=== PATIENT | female | born 1975 | race Caucasian/White ===

== ENCOUNTER → 2021-07-18 | Day surgery (SDC) | payer MEDICAID ==
[~2021-07-18] VITALS: Ht 162.6 cm; Wt 56.2 kg
[~2021-07-18] MED LIST: BUPIVACAINE 0.5% MPF INJ 30ML SDV IJ ONE; CHOL200021 PO; DexAMETHasone SOD PHOS 10MG/1ML VIAL INJ ONE; EPINEPHrine HCL 1 MG/1 ML AMP ONE; FERR-7 PO; HYDROmorphone HCL 2 MG/ML VL ONE; MEPERIDINE HCL (25 MG/ML) 1ML VIAL ONE; METOCLOPRAMIDE HCL 5MG/ml INJ 2ml VIAL IV PRN; MIDAZOLAM HCL 2MG/2ML 2ml VIAL (1mg/ml) ONE; MORPHINE SULFATE 4 MG/ML SYR/VIAL IV PRN; ONDANSETRON HCL 4 MG/2 ML VIAL ONE; PROPOFOL 10 MG/ML 20 ML IV ONE; ROCURONIUM 10MG/ML 10ML VIAL IV ONE; SUCCINYLCHOLINE CHLORIDE 20 MG/ML 10ML VIAL IV ONE; TRANEXAMIC ACID 20 ML ONE; ceFAZolin 1GM/50ML 100 ML IV ONE; ceFAZolin 1GM/50ML 50 ML IV ONE; fentaNYL CITRATE 100 MCG/2 ML VL ONE
[2021-07-18] MEDS: HYDROmorphone HCL 2 MG/ML VL IV PRN ×2 (12:50→13:17)
[2021-07-18 14:45] VITALS: BP 100/61
== END | disposition home or self-care (01) ==
LOC: SUR 06:33
PROVIDERS: ATTEND Orthopaedic Surgery Sports Medicine
DX: S73.192A Other sprain of left hip, initial encounter (principal); N18.9 Chronic kidney disease, unspecified; Z90.710 Acquired absence of both cervix and uterus; Z85.43 Personal history of malignant neoplasm of ovary; Z90.49 Acquired absence of other specified parts of digestive tract; Z91.040 Latex allergy status; Z88.2 Allergy status to sulfonamides; Z20.822 Contact with and (suspected) exposure to COVID-19; X58.XXXA Exposure to other specified factors, initial encounter; Y93.89 Activity, other specified; Y92.89 Other specified places as the place of occurrence of the external cause; Y99.8 Other external cause status
CPT/HCPCS: 29916; 73501; 86850; 86900; 86901; C1713; J0171; J0330; J0690; J1100; J1170; J2175; J2250; J2405; J2704; J2765; J3010; J3490; U0003; 76000

== ENCOUNTER 2024-07-15 09:35 | Day surgery (SDC) | payer OTHER ==
[~2024-07-15] VITALS: Ht 162.6 cm; Wt 57.6 kg
[~2024-07-15 09:35] MED LIST changes: -BUPIVACAINE 0.5% MPF INJ 30ML SDV IJ ONE; -CHOL200021 PO; -DexAMETHasone SOD PHOS 10MG/1ML VIAL INJ ONE; -EPINEPHrine HCL 1 MG/1 ML AMP ONE; -FERR-7 PO; -HYDROmorphone HCL 2 MG/ML VL ONE; -MEPERIDINE HCL (25 MG/ML) 1ML VIAL ONE; -METOCLOPRAMIDE HCL 5MG/ml INJ 2ml VIAL IV PRN; -MIDAZOLAM HCL 2MG/2ML 2ml VIAL (1mg/ml) ONE; -MORPHINE SULFATE 4 MG/ML SYR/VIAL IV PRN; +MULT-1018 PO; -ONDANSETRON HCL 4 MG/2 ML VIAL ONE; -PROPOFOL 10 MG/ML 20 ML IV ONE; -ROCURONIUM 10MG/ML 10ML VIAL IV ONE; -SUCCINYLCHOLINE CHLORIDE 20 MG/ML 10ML VIAL IV ONE; -TRANEXAMIC ACID 20 ML ONE; -ceFAZolin 1GM/50ML 100 ML IV ONE; -ceFAZolin 1GM/50ML 50 ML IV ONE; -fentaNYL CITRATE 100 MCG/2 ML VL ONE
[2024-07-15] MEDS: diphenhdrAMINE HCL 50 MG/1 ML VL IV ONE (10:14)
[2024-07-15] MEDS ORDERED: VANCOMYCIN HCL 1000 MG VL ONE (11:47)
[2024-07-15] MEDS ORDERED: fentaNYL CITRATE 100 MCG/2 ML VL ONE (11:48)
[2024-07-15] MEDS ORDERED: VANCOMYCIN 1GM/250ML KIT 250 ML IV ONE (11:49)
[2024-07-15] MEDS ORDERED: MIDAZOLAM HCL 2MG/2ML 2ml VIAL (1mg/ml) ONE (11:49)
[2024-07-15] MEDS ORDERED: LIDOCAINE 2%HCL (LOCAL ANESTH.) INJ 20ML MDV ONE (11:49)
[2024-07-15 13:15] VITALS: BP 119/81; PULSE 67; RESP 14; O2SAT 97
[2024-07-15 13:30] VITALS: BP 120/82; PULSE 100; RESP 13; O2SAT 95
[2024-07-15] MEDS: KETOROLAC TROMETH 30 MG/ML 1ML VIAL IV ONE (13:39)
[2024-07-15 13:45] VITALS: BP 118/83; PULSE 110; RESP 18; O2SAT 94
--- NOTE | 2024-07-15 13:53 | DVH ---
CHEST RADIOGRAPH Indication: S/P PACEMAKER Technique: Single frontal view of the chest was obtained Comparison: None FINDINGS: Lines and Tubes: Dual lead left sided pacemaker. Lungs: No focal consolidation. Pleura: No effusion. No pneumothorax. Cardiomediastinal contours: Unremarkable Bones: No acute osseous abnormality. IMPRESSION: No acute cardiopulmonary disease.
[2024-07-15 14:00] VITALS: BP 111/78; PULSE 107; RESP 16; O2SAT 95
[2024-07-15 14:15] VITALS: BP 111/82; PULSE 60; RESP 16; O2SAT 96
[2024-07-15 14:45] VITALS: BP 106/71; PULSE 116; RESP 20; O2SAT 96
--- NOTE | 2024-07-15 15:07 | DVHOP2 ---
Operative Report - 2 Report Details Date: 07/15/24 Preop Diagnosis: Symptomatic bradycardia Postop Diagnosis: s/p Pacemaker Implantation Surgeon: Chino Garcia MD Anesthesiologist: Conscious sedation Anesthesia: Mac, Local Consent: The patient was informed of the risks and benefits of the procedure. These include but are not limited to complications of anesthesia, postoperative infection, incomplete relief of symptoms, recurrence of symptoms, damage to blood vessels, nerves and tendons, deep venous thrombosis, pulmonary embolism and possible need for repeat surgery in the future. Complications: No complications Estimated Blood Loss: 10 cc Indications for Surgery: Dizziness lightheadedness. Symptomatic bradycardia. Name of Procedure Performed Pacemaker implantation via left pectoral area. Procedure Details Procedure Details: Local anesthesia with 2% lidocaine into the left pectoral region following informed consent obtained the patient was prepped and draped in usual fashion and incision made over the left pectoral we performed dissection planes with the electrocautery and blunt dissection. A pocket was formed under the pectoral fascia. We then inserted a Seldinger needle into the subclavian vein under flu oroscopic guidance placed a nine Vietnamese sheath with AJ curved guidewire and active fixation electrodes into the RV apex. An exchange was made for a six Vietnamese sheath and this was then placed again over the J curved guidewire and an atrial sheath was placed at also add to fixation. Under fluoroscopic guidance these leads were then connected to the myocardial tissue. They were sutured with 0 Ethibond after good capture and sensitivity thresholds were obtained. A antibiotic filled Ray-Madeline gauze was then placed into the pocket and the pocket was flushed with antibiotic solution. We removed the Ray-Madeline gauze and T0 Ethibond was used to suture the leads to the muscle. We then connected the generator and placed it into the pocket in the subpectoral area. The skin was sutured subcutaneously with 3-0 Ethibond and Monocryl was used to close the skin. No complications. The implanted device is an Edora 8, by [employer]. The atrial lead is a soleus S45 serial 3. [id number] serial [id number]. [id number] by [employer]. The ventricular lead is a Solia S 53 serial 3. [id number]. This was also by [employer]. T , TR-T serial [id number] Thresholds: The right atrial lead detected an R-wave of 4.7 at 1.2 volts 0.4 milliseconds when 545 Ohms. The right ventricular lead detected an R-wave of 11.2 at 0.5 volts 0.4 milliseconds 760 Ohms of impedance. The right atrial mean was set at 4 volts 0.4 milliseconds 0.5 mV of sensitivity in bipolar configuration in both sensing and pacing. Right ventricular lead was set at a pulse amplitude of 4 volts at 0.4 milliseconds 2 mV of sensitivity bipolar configuration both sensing and pacing. The pacing mode at DDD at a rate of 60/130 with an AV delay of 205/160 milliseconds a PV AERP at 2:50 a.m. milliseconds RA sensitivity auto at 0.5 mV RV sensitivity auto at 2 mV RA output at 4 volts at 0.40 milliseconds RV output for volts at 0.40 milliseconds Patient tolerated procedure well no complications. A chest x-ray was ordered as well as an EKG for evaluation of placement. Condition Good Disposition Home Date of Service: Jul 15, 2024 Billing Provider: CHINO GARCIA Sr., MD Cardiology Common Codes: 94111-[id number] INP/OBS CARE (High) Card. Pacer Implants/Gen [id number]/REPLACE DUAL LEAD PACER CHINO GARCIA Sr., MD Jul 15, 2024 15:07
== END 2024-07-15 15:20 | disposition home or self-care (01) ==
LOC: CATH 09:35
PROVIDERS: ATTEND Internal Medicine
DX: I44.30 Unspecified atrioventricular block (principal); R00.1 Bradycardia, unspecified; R94.39 Abnormal result of other cardiovascular function study; R42 Dizziness and giddiness; I34.1 Nonrheumatic mitral (valve) prolapse; G47.33 Obstructive sleep apnea (adult) (pediatric)
CPT/HCPCS: 33208; 71045; C1785; J1200; J1885; J2250; J3010; J3370; J7040; 99152

== ENCOUNTER 2024-07-18 13:03 | Inpatient (IN) | payer MEDICAID, OTHER ==
[~2024-07-18] VITALS: Ht 162.6 cm; Wt 118.3 kg
--- NOTE | 2024-07-18 14:33 | ED.PDOC ---
HPI Comments HPI: Poor Historian. 48-year-old female presents to the emergency department for evaluation of chest pain in the last two days that is progressively getting worse. Patient thinks she is developing an allergic reaction to adhesive tape. She is status post pacemaker placement this past Saturday which she says they applied Steri-Strips and adhesives to the area of the pacemaker incision. She removed the dressing yesterday. There is noted Steri-Strips present today over the pacemaker incision. There is associated redness and rash that she describes across her chest. She feels some chest heaviness as well. The recently placed her on a pacemaker she says was for some type of ventricular block. VITALS: Temp: 99.2 F RR: 18 02 sat : 100 % on room air HR: 79 BP: 137/93 PMH: type 2 heart block, autoimmune disorder PSH: pacemaker, calf surgery, hip surgery, hysterectomy, shoulder surgery, hernia repair, , Social history: denies tobacco use, endorses ETOH use, denies drug use Medications: denies Allergies: adhesive tape, iodine REVIEW OF SYSTEMS: CONSTITUTIONAL: Denies acute: fever, diaphoresis, chills, generalized weakness. HEAD: Denies acute: headache, photophobia Eyes: Denies acute: Double vision, vision loss, eye pain, eye discharge. EARS: Denies acute: tinnitus, hearing loss, ear discharge, ear pain, THROAT: Denies acute: sore throat, swelling, difficulty swallowing , pain with swallowing, change in voice. NECK: Denies acute: neck pain, neck swelling, stiff neck. HEART: Denies acute : palpitations, LUNGS: Denies acute: SOB, wheezing, cough, hemoptysis ABDOMEN: Denies acute: abdominal pain, Nausea, Vomiting, diarrhea, melena , hematemesis, hematochezia SKIN: Denies acute: , , lesions, itchiness. EXTREMITIES: Denies acute: calf pain, numbness, tingling, weakness, denies pain in extremity. Denies acute: Low back pain. Neuro: Denies acute: focal neurological deficit, motor or sensory focal neurological deficit, tremors, seizure like activity, confusion, dizziness, change in mental status, loss of bowel or bladder function, cauda equina like symptoms. : Denies acute: dysuria, hematuria, flank pain, increase in urinary frequency. PSYCH: Denies acute: hallucination, suicidal ideation, homicidal ideation. FEMALE: Denies acute: abnormal vaginal bleeding, foul odor, unusual discharge. PHYSICAL EXAM: General: Moderate acute distress, awake and alert. Head: normocephalic, atraumatic. Neck: supple, trachea is midline, no swelling. Throat: Normal phonation. No obstruction, no swelling, no erythema, no deviation, no drooling, no tripoding Eyes:, no erythema, no purulent discharge, no proptosis, no icterus. Heart: regular rate, regular rhythm, no significant murmur appreciated. Touching of the rash on her chest and redness around her pacemaker area produces discomfort. This could be allergic reaction versus cellulitis developing. No apparent purulent discharge from the surgical site. Lungs: no apparent respiratory distress, Able to speak in full sentences. No wheezing, no rhonchi, no crackles. No stridors Clear to auscultation bilaterally. Abdomen: non tender to palpation, non distended, soft, no guarding, no rebound, + bowel sounds. Neuro: Awake, Alert, oriented to name, self, situation, follows commands GCS=15. Speech is normal. Skin: no petechia, no purpura, no cyanosis, non-pale, not jaundice. Lower extremities: --no - Pitting edema no deformity, no focal swelling, no calf TTP. Makes eye contact. moves all four extremities. Face: no apparent facial droop. Ambulating in the ED independently. Time Seen by MD: 14:24 Primary Care Provider: [facility] Reviewed Notes: Nurses Notes, Allergies Allergies: Coded Allergies: Povidone Iodine (Verified Allergy, Unknown, RASH, 07/14/24) Uncoded Allergies: ADHESIVE TAPE (Allergy, Unknown, 07/14/24) Home Meds Reported Medications Multiple Vitamin (Multivitamins) Tab, 1 TAB PO DAILY, #90 TAB 3 Refills 07/14/24 Information Source: Patient Mode of Arrival: Ambulatory Past Medical History Surgical History: Appendectomy, Cholecystectomy, Hernia Repair, Hysterectomy Family History Family History: Reviewed,noncontributory to illness Social History Smoker: Non-Smoker Alcohol: Occasionally Drugs: Denies Drug Use Lives In: Home Was a procedure done? Was a procedure done?: No X-Ray, Labs, Meds, VS Vital Signs Date Time Temp Pulse Resp B/P (MAP) Pulse Ox O2 Delivery O2 Flow Rate FiO2 07/18/24 20:00 80 18 99 Room Air* 0 21 07/18/24 20:00 80 18 100/57 (71) 99 07/18/24 20:00 75 07/18/24 19:00 77 16 114/70 (85) 97 07/18/24 17:30 69 13 97 Room Air* 0 21 07/18/24 17:30 98.3 69 14 117/69 (85) 97 98.3 07/18/24 17:30 117/69 07/18/24 16:34 73 18 99 Room Air 07/18/24 16:34 73 18 128/54 (78) 99 07/18/24 14:52 99.2 79 18 137/93 (108) 100 07/18/24 14:52 18 100 Room Air* 0 21 Lab Test 07/18/24 18:13 07/18/24 16:12 07/18/24 15:10 07/18/24 14:35 Range/Units Troponin I High Sensitivity 4 4 4 </=34 ng/L White Blood Count 6.3 4.4-10.8 10^3/uL Red Blood Count 4.49 4.0-5.20 10^6/uL Hemoglobin 14.5 12.2-16.2 g/dL Hematocrit 42.6 36.0-46.0 % Mean Corpuscular Volume 94.9 80.0-100.0 fL Mean Corpuscular Hemoglobin 32.3 H 28.0-32.0 pg Mean Corpuscular Hemoglobin Concent 34.1 32.0-36.0 g/dL Red Cell Distribution Width 12.5 11.8-14.3 % Platelet Count 265 140-450 10^3/uL Mean Platelet Volume 9.9 6.9-10.8 fL Neutrophils (%) (Auto) 61.0 37.0-80.0 % Lymphocytes (%) (Auto) 25.2 10.0-50.0 % Monocytes (%) (Auto) 9.3 0.0-12.0 % Eosinophils (%) (Auto) 4.0 0.0-7.0 % Basophils (%) (Auto) 0.5 0.0-2.0 % Neutrophils # (Auto) 3.8 1.6-8.6 10 ^3/uL Lymphocytes # (Auto) 1.6 0.4-5.4 10 ^3/uL Monocytes # (Auto) 0.6 0-1.3 10 ^3/uL Eosinophils # (Auto) 0.3 0-0.8 10 ^3/uL Basophils # (Auto) 0 0-0.2 10 ^3/uL Nucleated Red Blood Cells 0.2 % Sodium Level 140 136-145 mmol/L Potassium Level 4.5 3.5-5.1 mmol/L Chloride Level 105 98-107 mmol/L Carbon Dioxide Level 28 20-31 mmol/L Anion Gap 7 5-15 Blood Urea Nitrogen 9 9-23 mg/dL Creatinine 1.05 H 0.550-1.02 mg/dL Glomerular Filtration Rate Calc 66 >90 mL/min BUN/Creatinine Ratio 8.6 L 10.0-20.0 Serum Glucose 95 74-106 mg/dL Lactic Acid Level 0.8 0.4-2.0 mmol/L Calcium Level 10.3 8.7-10.4 mg/dL Magnesium Level 1.7 1.6-2.6 mg/dL Total Bilirubin 0.6 0.2-1.0 mg/dL Aspartate Amino Transferase (AST) 35 13-40 U/L Alanine Aminotransferase (ALT) 23 7-40 U/L Alkaline Phosphatase 100 46-116 U/L B-Type Natriuretic Peptide 20.22 0-100 pg/mL Total Protein 7.4 5.7-8.2 g/dL Albumin 4.6 3.2-4.8 g/dL Urine Color Light-yellow Yellow Urine Clarity Clear Clear Urine pH 7.5 5.0-9.0 Urine Specific [place] 1.020 1.001-1.035 Urine Protein Negative Negative Urine Ketones Negative Negative Urine Blood Negative Negative /uL Urine Nitrite Negative Negative Urine Bilirubin Negative Negative Urine Urobilinogen Normal Negative mg/dL Urine Leukocyte Esterase Negative Negative /uL Urine RBC 1 0 - 4 /hpf Urine WBC 1 0 - 5 /hpf Urine Squamous Epithelial Cells Few <5 /hpf Urine Bacteria None seen None Seen /hpf Urine Mucus Few None Seen Urine Glucose Normal Normal mg/dL Current Medications Medications (Trade) Dose Ordered Sig/Leticia Route Start Time Stop Time Status Last Admin Aspirin 325 mg ONCE ONCE PO 07/18/24 14:45 07/18/24 14:46 DC 07/18/24 16:21 Sodium Chloride 500 ml @ 500 mls/hr Q1H ONCE IV 07/18/24 14:45 07/18/24 15:44 DC 07/18/24 16:25 Famotidine (Pepcid Injection) 20 mg ONCE ONCE IV 07/18/24 14:45 07/18/24 14:46 DC 07/18/24 16:22 Dexamethasone Sodium Phosphate (Decadron Injection) 10 mg ONCE ONCE IM 07/18/24 14:45 07/18/24 14:46 DC 07/18/24 16:25 Diphenhydramine HCl (Benadryl Injection) 25 mg ONCE ONCE IV 07/18/24 14:45 07/18/24 14:46 DC 07/18/24 16:24 Piperacillin Sod/ Tazobactam Sod 100 ml @ 100 mls/hr ONCE ONCE IV 07/18/24 14:45 07/18/24 15:44 DC 07/18/24 16:25 Fentanyl Citrate 100 mcg ONCE ONCE IV 07/18/24 17:00 07/18/24 17:01 DC 07/18/24 17:30 Fentanyl Citrate 100 mcg ONCE ONCE IV 07/18/24 19:45 07/18/24 19:46 DC 07/18/24 20:54 [place] [address] Ph: [phone] DIAGNOSTIC IMAGING Diagnostic Imaging Report : [id number] Signed PATIENT: MACRINA ZAMUDIO ACCT: [id number] UNIT: [id number] : 1975 LOC: ER ROOM / BED: / AGE / SEX: 48 / F ADM STATUS: REG ER SERVICE 1432 ORDERING PHYSICIAN: PAT CANDELARIA DO PROCEDURE(s): CXRP - CHEST PORTABLE REASON: cp ORDER NUMBER(s): [id number], ACCESSION NUMBER(s): [id number] CLINICAL INFORMATION: 48 years old, Female; chest pain. TECHNIQUE: Single AP portable chest radiograph was obtained. COMPARISON: XY CHEST PORTABLE on DOS: 07/15/24 FINDINGS: Lungs: Clear. Cardiac: Heart size is within normal limits. Pacemaker leads extend to the right atrium and right ventricle. Pulmonary vasculature: Unremarkable. Mediastinum/gayathri: Unremarkable. Bones: No acute osseous abnormality identified. Other: No other significant findings. IMPRESSION: No evidence of acute disease in the chest. ATED BY: TJ CARTAGENA DO DICTATED DATE/TIME: 07/18/24 1503 SIGNED BY: TJ CARTAGENA DO SIGNED DATE/TIME: 07/18/24 150 CC: [place] [address] Ph: [phone] DIAGNOSTIC IMAGING Diagnostic Imaging Report : [id number] Signed PATIENT: MACRINA ZAMUDIO ACCT: [id number] UNIT: [id number] : 1975 LOC: ER ROOM / BED: / AGE / SEX: 48 / F ADM STATUS: REG ER SERVICE 1432 ORDERING PHYSICIAN: PAT CANDELARIA DO PROCEDURE(s): CX2CT - CHEST WITHOUT CONTRAST REASON: cp, s/p pacemaker ORDER NUMBER(s): [id number], ACCESSION NUMBER(s): [id number] Procedure: CT CHEST WITHOUT CONTRAST Reason for study/Clinical History: cp, s/p pacemaker Comparison Study: None available at time of dictation. Exam Date: 07/18/2024 02:42 PM TECHNIQUE: Multidetector CT of the chest was performed from the lung apices to the upper abdomen without the use of intravenous contract. Axial, coronal and sagittal multiplanar reformats were performed. Radiation Dose Information: CT Dose: CTDI volume is 5.5 mGy. Dose-length product is 199.67 mGy*cm The dose indicators for CT are the volume Computed Tomography (CT) Dose Index (CTDIvol) and the Dose Length Product (DLP), and are measured in units of mGy and mGy-cm, respectively. These indicators are not patient dose, but values generated from the CT scanner acquisition factors. The report includes radiation exposure data for exposures received during this examination. FINDINGS: Lower neck: Normal thyroid. Lungs: No focal consolidation, pleural effusion or pneumothorax. Heart/Vascular Structures: Normal heart size. No pericardial effusion. Dual- chamber pacemaker in place. Ventricular lead in the right ventricle. Exact positioning of the atrial lead is uncertain. There are no findings to suggest pericardial effusion. Lymph Nodes: No adenopathy Pleura: No pleural effusion or significant pneumothorax. Musculoskeletal: No acute osseous abnormality. Soft tissues: Pulse generator over the left chest with dual-chamber pacemaker in place. Upper abdomen: Limited portions of the upper abdomen are unremarkable. IMPRESSION: 1. Dual-chamber pacemaker in place. 2. No pneumothorax. Radiation optimization: All CT scans at this facility use at least one of these dose optimization techniques: automated exposure control mA and/or kV adjustment per patient size (includes targeted exams where dose is matched to clinical indication) or iterative reconstruction. ATED BY: GERMAINE LANZA Jr., DO DICTATED DATE/TIME: 07/18/241519 SIGNED BY: GERMAINE LANZA Jr., SIGNED DATE/TIME: 07/18/241519 CC: Time of 1ST Reevaluation: 19:53 (The case was discussed with the admitting team (HPI, physical exam, labs and diagnostic tests that were available at the time of disposition, ED course, treatment plan) on the phone. They agreed to admit the patient to their service and assume care of this patient from this point forward. Nurse practitioner REX. ) Reevaluation 1ST: Unchanged Patient Education/Counseling: Diagnosis, Treatment Family Education/Counseling: No Family Present Comments MDM: Patient presented with the above HPI.----- chest pain -workup was initiated. patient was found with the above mentioned diagnosis. the following medications were ordered: fentanyl, Zosyn, Benadryl, steroid injection, famotidine, aspirin, the following tests were ordered: ct chest without contrast, EKG x3, troponin x3, UA, chest x-ray, magnesium, lactic acid, BNP,CBC, CMP, Patient ED course and VS have been stabilized. Patient has been reassessed in the ED and remained in a stable condition. Patient has been observed in the ED adequate length of time to insure improvement/stability. Escalation of care considered: Consideration of escalation to observation or admission. patient was ADMITTED to the medicine team for further evaluation and treatment of their presentation. All the reports of any imaging studies that were ordered by myself were reviewed by myself. Departure 1 Departure Time of Disposition: 16:26 Impression: Primary Impression: Cellulitis of chest wall Additional Impressions: Allergic reaction Chest pain Disposition: ADMITTED INPATIENT Admit to: Tele Condition: Guarded Discharged With: Self Heart Score Heart Score: Heart Score Response (Comments) Value History Slightly Suspicious 0 Age 45-64 1 Risk Factors No known risk factors 0 Troponin Normal limit 0 Total 1 I personally scribed for PAT CANDELARIA DO ([email or web address]) on 07/18/24 at 14:33. Electronically submitted by Elodia Desai ([facility] [employer]). I personally scribed for PAT CANDELARIA DO ([email or web address]) on 07/18/24 at 18:36. Electronically submitted by Elodia Desai ([employer]). I personally scribed for PAT CANDELARIA DO ([email or web address]) on 07/18/24 at 21:14. Electronically submitted by Elodia Desai ([facility]). PAT CANDELARIA DO Jul 18, 2024 14:33
--- NOTE | 2024-07-18 15:06 | DVH ---
CLINICAL INFORMATION: 48 years old, Female; chest pain. TECHNIQUE: Single AP portable chest radiograph was obtained. COMPARISON: XY CHEST PORTABLE on DOS: 07/15/24 FINDINGS: Lungs: Clear. Cardiac: Heart size is within normal limits. Pacemaker leads extend to the right atrium and right kell tricle. Pulmonary vasculature: Unremarkable. Mediastinum/gayathri: Unremarkable. Bones: No acute osseous abnormality identified. Other: No other significant findings. IMPRESSION: No evidence of acute disease in the chest.
[2024-07-18 15:13] LABS: Urine Bacteria None Seen /hpf (None Seen)
--- NOTE | 2024-07-18 15:23 | DVH ---
Procedure: CT CHEST WITHOUT CONTRAST Reason for study/Clinical History: cp, s/p pacemaker Comparison Study: None available at time of dictation. Exam Date: 07/18/2024 02:42 PM TECHNIQUE: Multidetector CT of the chest was performed from the lung apices to the upper abdomen with out the use of intravenous contract. Axial, coronal and sagittal multiplanar reformats were performed . Radiation Dose Information: CT Dose: CTDI volume is 5.5 mGy. Dose-length product is 199.67 mGy*cm The dose indicators for CT are the volume Computed Tomography (CT) Dose Index (CTDIvol) and the Dose Length Product (DLP), and are measured in units of mGy and mGy-cm, respectively. These indicators are not patient dose, but values generated from the CT scanner acquisition factors. The report includes radiation exposure data for exposures received during this examination. FINDINGS: Lower neck: Normal thyroid. Lungs: No focal consolidation, pleural effusion or pneumothorax. Heart/Vascular Structures: Normal heart size. No pericardial effusion. Dual-chamber pacemaker in plac e. Ventricular lead in the right ventricle. Exact positioning of the atrial lead is uncertain. There are no findings to suggest pericardial effusion. Lymph Nodes: No adenopathy Pleura: No pleural effusion or significant pneumothorax. Musculoskeletal: No acute osseous abnormality. Soft tissues: Pulse generator over the left chest with dual-chamber pacemaker in place. Upper abdomen: Limited portions of the upper abdomen are unremarkable. IMPRESSION: 1. Dual-chamber pacemaker in place. 2. No pneumothorax. Radiation optimization: All CT scans at this facility use at least one of these dose optimization josi hniques: automated exposure control mA and/or kV adjustment per patient size (includes targeted exam s where dose is matched to clinical indication) or iterative reconstruction.
[2024-07-18 15:37] LABS: Urine Blood Negative /uL (Negative); Urine Clarity Clear (Clear); Urine Color Light-Yellow (Yellow); Urine Mucus FEW (None Seen); Urine Protein, UAD Negative (Negative); Urine Urobilinogen Normal (Negative); Urine WBC 1 /hpf (0 - 5); Urine pH 7.5 (5.0-9.0)
[2024-07-18 15:40] LABS: Basophils # (auto) 0 10 ^3/uL (0-0.2); Basophils % (auto) 0.5 % (0.0-2.0); Eosinophils # (auto) 0.3 10 ^3/uL (0-0.8); Hematocrit 42.6 % (36.0-46.0); Hemoglobin 14.5 g/dL (12.2-16.2); Lymphocytes # (auto) 1.6 10 ^3/uL (0.4-5.4); Lymphocytes % (auto) 25.2 % (10.0-50.0); Mean Corpuscular Hemoglobin 32.3 pg (28.0-32.0); Mean Corpuscular Hgb Conc. 34.1 g/dL (32.0-36.0); Mean Corpuscular Volume 94.9 fL (80.0-100.0); Monocytes # (auto) 0.6 10 ^3/uL (0-1.3); Monocytes % (auto) 9.3 % (0.0-12.0); Neutrophils # (auto) 3.8 10 ^3/uL (1.6-8.6); Nucleated Red Blood Cells % 0.2 %; Platelet Count (auto) 265 10^3/uL (140-450); Red Blood Cells 4.49 10^6/uL (4.0-5.20); Red Cell Distribution Width 12.5 % (11.8-14.3); White Blood Cell 6.3 10^3/uL (4.4-10.8)
[2024-07-18 15:47] LABS: Alanine Aminotransferase 23 U/L (7-40); Albumin 4.6 g/dL (3.2-4.8); Alkaline Phosphatase 100 U/L (46-116); Anion Gap 7 (5-15); Aspartate Aminotransferase 35 U/L (13-40); BUN/Creatinine Ratio 8.6 (10.0-20.0); Bilirubin, Total 0.6 mg/dL (0.2-1.0); Blood Urea Nitrogen 9 mg/dL (9-23); Calcium 10.3 mg/dL (8.7-10.4); Carbon Dioxide 28 mmol/L (20-31); Chloride 105 mmol/L (98-107); Glucose 95 mg/dL (74-106); Magnesium 1.7 mg/dL (1.6-2.6); Potassium 4.5 mmol/L (3.5-5.1); Sodium 140 mmol/L (136-145); Total Protein 7.4 g/dL (5.7-8.2)
[2024-07-18] MEDS: ASPirin 325 MG TAB PO ONE (16:21)
[2024-07-18] MEDS: FAMOTIDINE (10MG/ML) 2ML VL IV ONE (16:22)
[2024-07-18] MEDS: diphenhdrAMINE HCL 50 MG/1 ML VL IV ONE (16:24)
[2024-07-18] MEDS: SODIUM CHLORIDE 0.9% 500 ML IV ONE (16:25)
[2024-07-18] MEDS: DexAMETHasone SOD PHOS 10MG/1ML VIAL INJ IM ONE (16:25)
[2024-07-18] MEDS: PIPERACILLIN-TAZOB 3.375GM 100 ML IV ONE (16:25)
[2024-07-18 17:30] VITALS: PULSE 69; RESP 13; O2SAT 97
[2024-07-18] MEDS: fentaNYL CITRATE 100 MCG/2 ML VL IV ONE ×2 (17:30→20:54)
[2024-07-18] MEDS ORDERED: HYDROcodone-ACET 5/325MG TAB PO PRN ×2 (17:45→20:30)
[2024-07-18] MEDS ORDERED: DOCUSATE SOD 100 MG CAP PO PRN ×2 (17:45→20:30)
[2024-07-18] MEDS ORDERED: ONDANSETRON HCL 4 MG/2 ML VIAL IV PRN (17:45)
[2024-07-18] MEDS ORDERED: ACETAMINOPHEN 325 MG TAB PO PRN ×2 (17:45→20:30)
[2024-07-18] MEDS ORDERED: MORPHINE SULFATE INJ 2 MG/ml SYRG IV PRN ×3 (17:45→20:30)
[2024-07-18] MEDS ORDERED: NITROGLYCERIN 0.4 MG SL TAB SL PRN ×2 (17:45→20:30)
--- NOTE | 2024-07-18 17:55 | DVHHP2 ---
History of Present Illness Past Surgical History PM placement Oopherectomy Family History: Cancer, CVA Smoke: No ALCOHOL: occassional Lives: with Family Domestic Violence: Neg Review of Systems Constitutional: No: Fever, Chills, Sweats, Weakness, Malaise, Other Eyes: No: Pain, Vision change, Conjunctivae inflammation, Eyelid inflammation, Other, Redness ENT: No: Ear pain, Ear discharge, Nose pain, Nose discharge, Nose congestion, Mouth pain, Mouth swelling, Throat pain, Throat swelling, Other Respiratory: Shortness of breath; No: Cough, Dry, SOB with excertion, Wheezing, Hemoptysis, Pleuritic Pain, Sputum, Wheezing, Other Cardiovascular: Chest Pain, Palpitations; No: Orthopnea, Paroxysmal Noc. Dyspnea, Edema, Lt Headedness, Other Gastrointestinal: No: Nausea, Vomiting, Abdominal Pain, Diarrhea, Constipation, Melena, Hematochezia, Other Genitourinary: No Dysuria, No Frequency, No Incontinence, No Hematuria, No Retention, No Other Musculoskeletal: No: other, neck pain, shoulder pain, arm pain, back pain, hand pain, leg pain, foot pain Skin: Rash, Other (pus ); No: Lesions, Jaundice, Bruising Neurological: No: Weakness, Numbness, Incoordination, Change in speech, Confusion, Seizures, Other Allergies: Coded Allergies: Povidone Iodine (Verified Allergy, Unknown, RASH, 07/14/24) Uncoded Allergies: ADHESIVE TAPE (Allergy, Unknown, 07/14/24) Exam Vital Signs Vital Signs Date Time Temp Pulse Resp B/P (MAP) Pulse Ox O2 Delivery O2 Flow Rate FiO2 07/18/24 17:30 117/69 07/18/24 16:34 73 18 99 Room Air 07/18/24 14:52 99.2 07/18/24 14:52 0 21 General Appearance: Alert, Oriented X3, Cooperative, mild distress HEENT: Atraumatic, PERRLA, EOMI, Mucous membr. moist/pink Respiratory: Clear to auscultation, Normal air movement Cardiovascular: Regular rate, Normal S1, Normal S2, No murmurs Abdominal: Normal bowel sounds, Soft, No tenderness, No hepatospenomegaly, No m asses Extremities: No clubbing, No cyanosis, Normal pulses Neuro: Normal gait, Normal speech, Strength at 5/5 X4 ext, Normal tone, Sensation intact Psych/Mental Status: Mental status NL, Mood NL Assessment/Plan My Orders Orders - RACHEL SHAH Procedure Category Date Status Time Dexamethasone PHA 07/19/24 Transmitted Injection (Decadron 10:00 Diphenhdramine PHA 07/18/24 Transmitted Injection (Benadryl 22:00 Zosyn Extended PHA 07/18/24 Transmitted Infusion 22:00 Famotidine Injection PHA 07/19/24 Transmitted (Pepcid Injection) 10:00 Admit ADMIT 07/18/24 Transmitted 17:35 Allergies XIOMARA 07/18/24 Transmitted 17:35 Code Status CODE 07/18/24 Transmitted 17:35 Hydrocodone-Acet PHA 07/18/24 Transmitted 5/325mg Tab ([place] 17:45 Ondansetron Hcl PHA 07/18/24 Transmitted (Zofran) 17:45 Docusate Sodium PHA 07/18/24 Transmitted Capsule (Colace 17:45 Cardiac DIET 07/18/24 Transmitted Diet-2gna,Lofat,Lochol Dinner Acetaminophen Tablet [facility] 07/18/24 Transmitted (Tylenol Tablet) 17:45 Morphine Sulfate PHA 07/18/24 Transmitted Injection 17:45 Nitroglycerin PHA 07/18/24 Transmitted Sublingual (Ntrostat 17:45 Morphine Sulfate PHA 07/18/24 Transmitted Injection 17:45 Notify Of Changes [facility] 07/18/24 Transmitted From Base 17:35 Fresh Food Manager For [facility] 07/18/24 Transmitted 24 Hours 17:35 Emergency Dysrhythmia [facility] 07/18/24 Transmitted Protocol 17:35 Rhythm Strips Once [facility] 07/18/24 Transmitted Every Shift 17:35 Oxygen By Nasal RT 07/18/24 Transmitted Cannula 17:35 * Cardiology Consult CONS 07/18/24 Transmitted 17:35 RACHEL SHAH Jul 18, 2024 17:55
[2024-07-18 20:00] VITALS: PULSE 80; RESP 18; O2SAT 99
[2024-07-18] MEDS: fentaNYL CITRATE 100 MCG/2 ML VL ONE (21:04)
[2024-07-18] MEDS ORDERED: PIPERACILLIN-TAZOB 3.375GM 100 ML IV SCH (22:00)
[2024-07-18] MEDS ORDERED: diphenhdrAMINE HCL 50 MG/1 ML VL IV SCH (22:00)
[2024-07-18] MEDS: FAMOTIDINE (10MG/ML) 2ML VL IV SCH (22:24)
[2024-07-18] MEDS: PIPERACILLIN-TAZOB 3.375GM 100 ML IV SCH (22:24)
[2024-07-18 23:20] VITALS: BP 116/63; PULSE 63; RESP 18; TEMP 97.7; O2SAT 96
[2024-07-18] MEDS: MORPHINE SULFATE INJ 2 MG/ml SYRG IV PRN (23:53)
[2024-07-19] VITALS (9 sets, daily range): BP systolic 101–138; BP diastolic 60–71; PULSE 60–86; RESP 16–19; TEMP 97.6–98.4; O2SAT 93–100
--- NOTE | 2024-07-19 01:02 | DVHHP2 ---
REX LEGER AEROPHYSICIST 07/19/24 0101: History of Present Illness Reason for Visit: chest wall cellulitis History of Present Illness 48-year-old female with past medical history of symptomatic bradycardia presents with complaints of redness And discharge to the Pacemaker implantation site. Pacemaker was recently placed on July 15, [address] Garcia. Patient felt she was having an allergic reaction to adhesive tape. However was treated for allerg ic reaction in the emergency department with no relief. Patient is also endorsing chest pressure Radiating to her neck. Denied fevers, chills, shortness of breath,Dizziness, palpitations, nausea, vomiting. Cardiovascular: Other (PM) Past Surgical History: Appendectomy, Cholecystectomy, Hysterectomy Family History: Cancer, CVA Smoke: No ALCOHOL: occassional Drugs: None Lives: with Family Domestic Violence: Neg Review of Systems Constitutional: No: Fever, Chills, Sweats, Weakness, Malaise, Other Eyes: No: Pain, Vision change, Conjunctivae inflammation, Eyelid inflammation, Other, Redness ENT: No: Ear pain, Ear discharge, Nose pain, Nose discharge, Nose congestion, Mouth pain, Mouth swelling, Throat pain, Throat swelling, Other Respiratory: No: Cough, Dry, Shortness of breath, SOB with excertion, Wheezing, Hemoptysis, Pleuritic Pain, Sputum, Wheezing, Other Cardiovascular: Chest Pain; No: Palpitations, Orthopnea, Paroxysmal Noc. Dyspnea, Edema, Lt Headedness, Other Gastrointestinal: No: Nausea, Vomiting, Abdominal Pain, Diarrhea, Constipation, Melena, Hematochezia, Other Genitourinary: No Dysuria, No Frequency, No Incontinence, No Hematuria, No Retention, No Other Musculoskeletal: No: other, neck pain, shoulder pain, arm pain, back pain, hand pain, leg pain, foot pain Skin: Rash; No: Lesions, Jaundice, Bruising, Other Neurological: No: Weakness, Numbness, Incoordination, Change in speech, Confusion, Seizures, Other Allergies: Coded Allergies: Povidone Iodine (Verified Allergy, Unknown, RASH, 07/14/24) Uncoded Allergies: ADHESIVE TAPE (Allergy, Severe, anaphylaxis, 07/19/24) Medications Current Medications Medications Dose Ordered Sig/Leticia Route Start Time Stop Time Status Last Admin Dose Admin Docusate Sodium 100 mg BIDPRN PRN PO 07/18/24 20:30 Acetaminophen 650 mg Q6HP PRN PO 07/18/24 20:30 Acetaminophen/ Hydrocodone Bitart 1 tab Q6HPRN PRN PO 07/18/24 20:30 Morphine Sulfate 2 mg Q4HPRN PRN IV 07/18/24 20:30 07/18/24 23:53 2 MG Nitroglycerin 0.4 mg Q5MINP PRN SL 07/18/24 20:30 Morphine Sulfate 2 mg Q30M PRN IV 07/18/24 20:30 Famotidine 20 mg Q12HR IV 07/18/24 22:00 07/18/24 22:24 20 MG Diphenhydramine HCl 25 mg Q6HP PRN IV 07/18/24 20:30 Piperacillin Sod/ Tazobactam Sod 100 ml @ 25 mls/hr Q8HR IV 07/18/24 22:00 07/18/24 22:24 25 MLS/HR Exam Vital Signs Vital Signs Date Time Temp Pulse Resp B/P (MAP) Pulse Ox O2 Delivery O2 Flow Rate FiO2 07/18/24 23:53 63 18 116/63 07/18/24 23:05 99 07/18/24 20:00 Room Air* 0 21 07/18/24 17:30 98.3 98.3 General Appearance: Alert, Oriented X3, Cooperative, mild distress HEENT: Atraumatic, PERRLA, EOMI Respiratory: Clear to auscultation, Normal air movement Cardiovascular: Regular rate, Normal S1, Normal S2 Abdominal: Normal bowel sounds, Soft, No tenderness Extremities: No clubbing, No cyanosis, No edema Skin: No rashes (Erythematous Changes surrounding pacemaker implantation site. ), No significant lesion Psych/Mental Status: Mental status NL, Mood NL Labs/Xrays Labs Test 07/18/24 18:13 07/18/24 15:10 07/18/24 14:35 Range/Units Troponin I High Sensitivity 4 </=34 ng/L White Blood Count 6.3 4.4-10.8 10^3/uL Red Blood Count 4.49 4.0-5.20 10^6/uL Hemoglobin 14.5 12.2-16.2 g/dL Hematocrit 42.6 36.0-46.0 % Mean Corpuscular Volume 94.9 80.0-100.0 fL Mean Corpuscular Hemoglobin 32.3 H 28.0-32.0 pg Mean Corpuscular Hemoglobin Concent 34.1 32.0-36.0 g/dL Red Cell Distribution Width 12.5 11.8-14.3 % Platelet Count 265 140-450 10^3/uL Mean Platelet Volume 9.9 6.9-10.8 fL Neutrophils (%) (Auto) 61.0 37.0-80.0 % Lymphocytes (%) (Auto) 25.2 10.0-50.0 % Monocytes (%) (Auto) 9.3 0.0-12.0 % Eosinophils (%) (Auto) 4.0 0.0-7.0 % Basophils (%) (Auto) 0.5 0.0-2.0 % Neutrophils # (Auto) 3.8 1.6-8.6 10 ^3/uL Lymphocytes # (Auto) 1.6 0.4-5.4 10 ^3/uL Monocytes # (Auto) 0.6 0-1.3 10 ^3/uL Eosinophils # (Auto) 0.3 0-0.8 10 ^3/uL Basophils # (Auto) 0 0-0.2 10 ^3/uL Nucleated Red Blood Cells 0.2 % Sodium Level 140 136-145 mmol/L Potassium Level 4.5 3.5-5.1 mmol/L Chloride Level 105 98-107 mmol/L Carbon Dioxide Level 28 20-31 mmol/L Anion Gap 7 5-15 Blood Urea Nitrogen 9 9-23 mg/dL Creatinine 1.05 H 0.550-1.02 mg/dL Glomerular Filtration Rate Calc 66 >90 mL/min BUN/Creatinine Ratio 8.6 L 10.0-20.0 Serum Glucose 95 74-106 mg/dL Lactic Acid Level 0.8 0.4-2.0 mmol/L Calcium Level 10.3 8.7-10.4 mg/dL Magnesium Level 1.7 1.6-2.6 mg/dL Total Bilirubin 0.6 0.2-1.0 mg/dL Aspartate Amino Transferase (AST) 35 13-40 U/L Alanine Aminotransferase (ALT) 23 7-40 U/L Alkaline Phosphatase 100 46-116 U/L B-Type Natriuretic Peptide 20.22 0-100 pg/mL Total Protein 7.4 5.7-8.2 g/dL Albumin 4.6 3.2-4.8 g/dL Urine Color Light-yellow Yellow Urine Clarity Clear Clear Urine pH 7.5 5.0-9.0 Urine Specific [place] 1.020 1.001-1.035 Urine Protein Negative Negative Urine Ketones Negative Negative Urine Blood Negative Negative /uL Urine Nitrite Negative Negative Urine Bilirubin Negative Negative Urine Urobilinogen Normal Negative mg/dL Urine Leukocyte Esterase Negative Negative /uL Urine RBC 1 0 - 4 /hpf Urine WBC 1 0 - 5 /hpf Urine Squamous Epithelial Cells Few <5 /hpf Urine Bacteria None seen None Seen /hpf Urine Mucus Few None Seen Urine Glucose Normal Normal mg/dL Assessment/Plan Assessment/Plan Chest wall cellulitis vs severe contact dermatitis Chest pressure Pacemaker placed 07/15/24 Plan Admit telemetry Cardiology consult. Echocardiogram. Consult ID. blood cultures pending. Wound culture ordered IV ABX GI ppx pepcid / DVT ppx scds Plan discussed with: Patient My Orders Orders - REX LEGER NP Procedure Category Date Status Time Admit ADMIT 07/18/24 Transmitted 20:24 Code Status CODE 07/18/24 Transmitted 20:24 Vital Signs XIOMARA 07/18/24 In Process 20:24 Review Orders With XIOMARA 07/18/24 In Process Adm. 20:24 Encourage Activity As XIOMARA 07/18/24 In Process Tolerate 20:24 Consistent DIET 07/19/24 Transmitted Carb(Ccho)Diabetes Breakfast Oxygen By Face Mask RT 07/18/24 Transmitted 20:24 Docusate Sodium PHA 07/18/24 In Process Capsule (Colace 20:30 Acetaminophen Tablet PHA 07/18/24 In Process (Tylenol Tablet) 20:30 Notify Of Changes XIOMARA 07/18/24 In Process From Base 20:24 Advance Directive XIOMARA 07/18/24 In Process 20:24 Basic Metabolic Panel LAB 07/19/24 Logged 05:00 Basic Metabolic Panel LAB 07/20/24 Verified 05:00 Basic Metabolic Panel LAB 07/21/24 Verified 05:00 Basic Metabolic Panel LAB 07/22/24 Verified 05:00 Basic Metabolic Panel LAB 07/23/24 Verified 05:00 Complete Blood Count LAB 07/19/24 Logged 05:00 Complete Blood Count LAB 07/20/24 Verified 05:00 Complete Blood Count LAB 07/21/24 Verified 05:00 Complete Blood Count LAB 07/22/24 Verified 05:00 Complete Blood Count LAB 07/23/24 Verified 05:00 Blood Culture ANNELIESE 07/18/24 In Process 20:24 Patient Condition ORDERS 07/18/24 Transmitted 20:24 Allergies XIOMARA 07/18/24 In Process 20:24 Hydrocodone-Acet PHA 07/18/24 In Process 5/325mg Tab ([place] 20:30 Morphine Sulfate PHA 07/18/24 In Process Injection 20:30 Sequential XIOMARA 07/18/24 In Process Compression Device Nitroglycerin PHA 07/18/24 In Process Sublingual (Ntrostat 20:30 Morphine Sulfate PHA 07/18/24 In Process Injection 20:30 Stat Ekg For Chest XIOMARA 07/18/24 In Process Pain 20:24 Notify Of Changes XIOMARA 07/18/24 In Process From Base 20:24 Gm Mobile For XIOMARA 07/18/24 In Process 24 Hours 20:24 Emergency Dysrhythmia XIOMARA 07/18/24 In Process Protocol 20:24 Rhythm Strips Once XIOMARA 07/18/24 In Process Every Shift 20:24 Oxygen By Nasal RT 07/18/24 Transmitted Cannula 20:24 Famotidine Injection PHA 07/18/24 In Process (Pepcid Injection) 22:00 Diphenhdramine PHA 07/18/24 In Process Injection (Benadryl 20:30 Piperacillin-Tazob PHA 07/18/24 In Process 3.375gm (Zosyn 3.375g 22:00 * Cardiology Consult CONS 07/18/24 Transmitted 20:24 * Infectious [place]- Dr. CONS 07/18/24 Transmitted Mallad 20:24 Echo 2d Mode Cardiac US 07/19/24 Logged DOP 00:48 Mrsa Screen ANNELIESE 07/19/24 Logged 00:50 Date of Service: Jul 19, 2024 Billing Provider: ZENY CURRY MD Common Visit Codes: NOT BILLABLE ZENY CURRY MD 07/19/24 1511: Review of Systems Allergies: Coded Allergies: Povidone Iodine (Verified Allergy, Unknown, RASH, 07/14/24) Uncoded Allergies: ADHESIVE TAPE (Allergy, Severe, anaphylaxis, 07/19/24) Additional Comments Additional Comments Additional Comments Patient showed is reviewed. Patient is seen and evaluated and admitted by nurse practitioner this morning. I agree with nurse practitioner's evaluation: Documentation, assessment and care plan as outlined. REX LEGER NP Jul 19, 2024 01:01 ZENY CURRY MD Jul 19, 2024 15:11
[2024-07-19 07:01] LABS: Basophils # (auto) 0 10 ^3/uL (0-0.2); Basophils % (auto) 0.2 % (0.0-2.0); Eosinophils # (auto) 0 10 ^3/uL (0-0.8); Eosinophils % (auto) 0.2 % (0.0-7.0); Hemoglobin 14.3 g/dL (12.2-16.2); Lymphocytes # (auto) 0.9 10 ^3/uL (0.4-5.4); Lymphocytes % (auto) 9.7 % (10.0-50.0); Mean Corpuscular Hemoglobin 32.2 pg (28.0-32.0); Mean Corpuscular Volume 94.5 fL (80.0-100.0); Monocytes # (auto) 0.3 10 ^3/uL (0-1.3); Monocytes % (auto) 3.4 % (0.0-12.0); Neutrophils # (auto) 7.8 10 ^3/uL (1.6-8.6); Neutrophils % (auto) 86.5 % (37.0-80.0); Nucleated Red Blood Cells % 0.1 %; Platelet Count (auto) 265 10^3/uL (140-450); Red Blood Cells 4.44 10^6/uL (4.0-5.20); Red Cell Distribution Width 12.7 % (11.8-14.3)
--- NOTE | 2024-07-19 07:04 | ECG ---
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
[2024-07-19 07:08] LABS: Chloride 106 mmol/L (98-107); Potassium 4.4 mmol/L (3.5-5.1); Sodium 139 mmol/L (136-145)
[2024-07-19 07:09] LABS: Anion Gap 8 (5-15); Calcium 10.3 mg/dL (8.7-10.4); Carbon Dioxide 25 mmol/L (20-31)
[2024-07-19 07:14] LABS: Blood Urea Nitrogen 13 mg/dL (9-23)
[2024-07-19 07:17] LABS: Glucose 130 mg/dL (74-106)
[2024-07-19] MEDS ORDERED: DexAMETHasone SOD PHOS 10MG/1ML VIAL INJ IV SCH (10:00)
[2024-07-19] MEDS ORDERED: FAMOTIDINE (10MG/ML) 2ML VL IV SCH (10:00)
[2024-07-19] MEDS: diphenhdrAMINE HCL 50 MG/1 ML VL IV PRN (14:50)
--- NOTE | 2024-07-19 19:06 | DVHINCON2 ---
Family History: Colon cancer G8 MOTHER FH: ovarian cancer G8 MOTHER Allergies: Coded Allergies: Povidone Iodine (Verified Allergy, Unknown, RASH, 07/14/24) Uncoded Allergies: ADHESIVE TAPE (Allergy, Severe, anaphylaxis, 07/19/24) Home Meds Reported Medications Multiple Vitamin (Multivitamins) Tab, 1 TAB PO DAILY, #90 TAB 3 Refills 07/14/24 Current Medications Current Medications Medications (Trade) Dose Ordered Sig/Leticia Route PRN Reason Start Time Stop Time Status Last Admin Dexamethasone Sodium Phosphate (Decadron Injection) 10 mg DAILY IV 07/19/24 10:00 07/18/24 18:01 DC Diphenhydramine HCl (Benadryl Injection) 25 mg Q8HP IV 07/18/24 22:00 07/18/24 18:01 DC Piperacillin Sod/ Tazobactam Sod 100 ml @ 25 mls/hr Q12HR IV 07/18/24 22:00 07/18/24 21:19 DC Famotidine (Pepcid Injection) 20 mg DAILY IV 07/19/24 10:00 07/18/24 18:01 DC Docusate Sodium (Colace Capsule) 100 mg BIDPRN PRN PO FOR CONSTIPATION 07/18/24 20:30 Acetaminophen (Tylenol Tablet) 650 mg Q6HP PRN PO PAIN SCALE 1-3 OR TEMP>100.4 07/18/24 20:30 Acetaminophen/ Hydrocodone Bitart ([facility] 5/325MG Tab) 1 tab Q6HPRN PRN PO MODERATE PAIN (4-6 PAIN SCALE) 07/18/24 20:30 Morphine Sulfate 2 mg Q4HPRN PRN IV SEVERE PAIN (7-10 PAIN SCALE) 07/18/24 20:30 07/19/24 14:51 Nitroglycerin (Ntrostat Sublingual) 0.4 mg Q5MINP PRN SL FOR CHEST PAIN 07/18/24 20:30 Morphine Sulfate 2 mg Q30M PRN IV FOR CHEST PAIN 07/18/24 20:30 Famotidine (Pepcid Injection) 20 mg Q12HR IV 07/18/24 22:00 07/19/24 10:47 Diphenhydramine HCl (Benadryl Injection) 25 mg Q6HP PRN IV FOR ITCHING 07/18/24 20:30 07/19/24 14:50 Piperacillin Sod/ Tazobactam Sod 100 ml @ 25 mls/hr Q8HR IV 07/18/24 22:00 07/19/24 14:16 Vital Signs Vital Signs Date Time Temp Pulse Resp B/P (MAP) Pulse Ox O2 Delivery O2 Flow Rate FiO2 07/19/24 17:00 97.7 64 17 101/60 (74) 93 97.7 07/19/24 08:00 Room Air* 0 21 Labs/Diagnostic Data Labs Test 07/19/24 06:43 07/18/24 18:13 07/18/24 15:10 07/18/24 14:35 Range/Units White Blood Count 9.0 # 4.4-10.8 10^3/uL Red Blood Count 4.44 4.0-5.20 10^6/uL Hemoglobin 14.3 12.2-16.2 g/dL Hematocrit 42.0 36.0-46.0 % Mean Corpuscular Volume 94.5 80.0-100.0 fL Mean Corpuscular Hemoglobin 32.2 H 28.0-32.0 pg Mean Corpuscular Hemoglobin Concent 34.0 32.0-36.0 g/dL Red Cell Distribution Width 12.7 11.8-14.3 % Platelet Count 265 140-450 10^3/uL Mean Platelet Volume 9.8 6.9-10.8 fL Neutrophils (%) (Auto) 86.5 H 37.0-80.0 % Lymphocytes (%) (Auto) 9.7 L 10.0-50.0 % Monocytes (%) (Auto) 3.4 0.0-12.0 % Eosinophils (%) (Auto) 0.2 0.0-7.0 % Basophils (%) (Auto) 0.2 0.0-2.0 % Neutrophils # (Auto) 7.8 1.6-8.6 10 ^3/uL Lymphocytes # (Auto) 0.9 0.4-5.4 10 ^3/uL Monocytes # (Auto) 0.3 0-1.3 10 ^3/uL Eosinophils # (Auto) 0 0-0.8 10 ^3/uL Basophils # (Auto) 0 0-0.2 10 ^3/uL Nucleated Red Blood Cells 0.1 % Sodium Level 139 136-145 mmol/L Potassium Level 4.4 3.5-5.1 mmol/L Chloride Level 106 98-107 mmol/L Carbon Dioxide Level 25 20-31 mmol/L Anion Gap 8 5-15 Blood Urea Nitrogen 13 9-23 mg/dL Creatinine 1.00 0.550-1.02 mg/dL Glomerular Filtration Rate Calc 69 >90 mL/min BUN/Creatinine Ratio 13.0 10.0-20.0 Serum Glucose 130 H 74-106 mg/dL Calcium Level 10.3 8.7-10.4 mg/dL Troponin I High Sensitivity 4 </=34 ng/L Lactic Acid Level 0.8 0.4-2.0 mmol/L Magnesium Level 1.7 1.6-2.6 mg/dL Total Bilirubin 0.6 0.2-1.0 mg/dL Aspartate Amino Transferase (AST) 35 13-40 U/L Alanine Aminotransferase (ALT) 23 7-40 U/L Alkaline Phosphatase 100 46-116 U/L B-Type Natriuretic Peptide 20.22 0-100 pg/mL Total Protein 7.4 5.7-8.2 g/dL Albumin 4.6 3.2-4.8 g/dL Urine Color Light-yellow Yellow Urine Clarity Clear Clear Urine pH 7.5 5.0-9.0 Urine Specific [place] 1.020 1.001-1.035 Urine Protein Negative Negative Urine Ketones Negative Negative Urine Blood Negative Negative /uL Urine Nitrite Negative Negative Urine Bilirubin Negative Negative Urine Urobilinogen Normal Negative mg/dL Urine Leukocyte Esterase Negative Negative /uL Urine RBC 1 0 - 4 /hpf Urine WBC 1 0 - 5 /hpf Urine Squamous Epithelial Cells Few <5 /hpf Urine Bacteria None seen None Seen /hpf Urine Mucus Few None Seen Urine Glucose Normal Normal mg/dL Microbiology Date/Time Source Procedure Growth Status 07/19/24 00:50 Nose MRSA Screen - Final Complete CONSTANTIN GARCIA MD Jul 19, 2024 19:06
[2024-07-20] VITALS (13 sets, daily range): BP systolic 102–138; BP diastolic 64–91; PULSE 60–108; RESP 14–20; TEMP 97.5–98.9; O2SAT 84–100
[2024-07-20 07:38] LABS: Basophils # (auto) 0 10 ^3/uL (0-0.2); Basophils % (auto) 0.6 % (0.0-2.0); Eosinophils # (auto) 0.4 10 ^3/uL (0-0.8); Eosinophils % (auto) 6.7 % (0.0-7.0); Hematocrit 40.7 % (36.0-46.0); Lymphocytes # (auto) 2.1 10 ^3/uL (0.4-5.4); Lymphocytes % (auto) 32.1 % (10.0-50.0); Mean Corpuscular Hemoglobin 32.5 pg (28.0-32.0); Mean Corpuscular Hgb Conc. 34.3 g/dL (32.0-36.0); Mean Corpuscular Volume 94.6 fL (80.0-100.0); Monocytes # (auto) 0.6 10 ^3/uL (0-1.3); Monocytes % (auto) 9.9 % (0.0-12.0); Neutrophils # (auto) 3.3 10 ^3/uL (1.6-8.6); Neutrophils % (auto) 50.7 % (37.0-80.0); Nucleated Red Blood Cells % 0.1 %; Platelet Count (auto) 212 10^3/uL (140-450); Red Blood Cells 4.31 10^6/uL (4.0-5.20); Red Cell Distribution Width 12.9 % (11.8-14.3); White Blood Cell 6.4 10^3/uL (4.4-10.8)
[2024-07-20 07:43] LABS: Anion Gap 8 (5-15); Carbon Dioxide 28 mmol/L (20-31); Chloride 105 mmol/L (98-107); Potassium 3.7 mmol/L (3.5-5.1); Sodium 141 mmol/L (136-145)
[2024-07-20 07:44] LABS: Calcium 9.9 mg/dL (8.7-10.4)
[2024-07-20 07:49] LABS: BUN/Creatinine Ratio 15.2 (10.0-20.0); Blood Urea Nitrogen 17 mg/dL (9-23); Glucose 90 mg/dL (74-106)
[2024-07-20] MEDS ORDERED: NAPROXEN 500 MG TAB PO PRN (09:30)
[2024-07-20] MEDS ORDERED: VANCOMYCIN 1GM/250ML KIT 250 ML IV SCH (10:00)
[2024-07-20] MEDS ORDERED: VANCOMYCIN PER PHARMACY 0 MG IV SCH (10:15)
[2024-07-20] MEDS: PANTOPRAZOLE 40 MG TAB PO SCH (11:16)
[2024-07-20] MEDS: VANCOMYCIN 1GM/250ML KIT 250 ML IV SCH (11:17)
--- NOTE | 2024-07-20 15:56 | DVHPN2 ---
Progress Note - Dictate Date Seen: Jul 20, 2024 Medical Necessity Reason Pt with a Central, PICC or Fol: No Subjective Patient is seen and evaluated. Her left anterior chest which he had the pacemaker insertion site shows improving erythema and edema. Patient appears to have a contact dermatitis from using Steri-Strips post pacemaker placement. vital signs Vital Sign Date Time Temp Pulse Resp B/P (MAP) Pulse Ox O2 Delivery O2 Flow Rate FiO2 07/20/24 13:00 98.7 66 17 121/91 (101) 91 98.7 07/20/24 08:00 Room Air* 0 21 Total Intake and Output 07/19/24 07/19/24 07/20/24 15:00 23:00 07:00 Intake Total 100 ml 700 ml 100 ml Balance 100 ml 700 ml 100 ml medications Current Medications Medications Dose Ordered Sig/Leticia Route Start Time Stop Time Status Last Admin Dose Admin Docusate Sodium 100 mg BIDPRN PRN PO 07/18/24 20:30 Acetaminophen 650 mg Q6HP PRN PO 07/18/24 20:30 Acetaminophen/ Hydrocodone Bitart 1 tab Q6HPRN PRN PO 07/18/24 20:30 Morphine Sulfate 2 mg Q4HPRN PRN IV 07/18/24 20:30 07/20/24 11:18 2 MG Nitroglycerin 0.4 mg Q5MINP PRN SL 07/18/24 20:30 Morphine Sulfate 2 mg Q30M PRN IV 07/18/24 20:30 Famotidine 20 mg Q12HR IV 07/18/24 22:00 07/20/24 11:16 20 MG Diphenhydramine HCl 25 mg Q6HP PRN IV 07/18/24 20:30 07/20/24 11:16 25 MG Piperacillin Sod/ Tazobactam Sod 100 ml @ 25 mls/hr Q8HR IV 07/18/24 22:00 07/20/24 13:38 25 MLS/HR Vancomycin HCl 250 ml @ 250 mls/hr DAILY IV 07/20/24 10:00 UNV Naproxen 250 mg Q8HP PRN PO 07/20/24 09:30 Pantoprazole Sodium 40 mg DAILY@1000 PO 07/20/24 10:00 07/20/24 11:16 40 MG Vancomycin HCl 0 ml @ 0 mls/hr UD IV 07/20/24 10:15 Vancomycin HCl 250 ml @ 250 mls/hr Q18H IV 07/20/24 12:00 07/20/24 11:17 250 MLS/HR objective Alert awake oriented x3. HEENT neck supple no JVD. Heart regular rate and rhythm S1-S2. Without murmurs. Lungs fair air movement without rales wheezes. Abdomen soft positive bowel sounds. Extremities no edema. Left upper chest pacemaker insertion site appears clean and dry and without any drainage. Contact dermatitis with a erythema noted. laboratory and microbiology Laboratory Tests 07/20/24 06:35 Test 07/20/24 06:35 Range/Units Serum Glucose 90 74-106 mg/dL Assessment/Plan Plan is to continue current antibiotics as she is on. Patient is evaluated by her splitter head and apparently scheduled to have pacemaker removed this afternoon given the possibility of infection. Meantime continue current supportive care and treatment and further clinical management per clinical course and recommendations from the Cardiology. Discussed with the patient at bedside regarding care plan. Problems(with codes): (1) Cellulitis of chest wall (2) Allergic reaction Plan discussed with: Patient, Other ZENY CURRY MD Jul 20, 2024 15:56
[2024-07-20] MEDS: MIDAZOLAM HCL 2MG/2ML 2ml VIAL (1mg/ml) ONE (17:55)
[2024-07-20] MEDS: diphenhdrAMINE HCL 50 MG/1 ML VL ONE (17:55)
[2024-07-20] MEDS: fentaNYL CITRATE 100 MCG/2 ML VL ONE (17:56)
--- NOTE | 2024-07-20 18:26 | DVHINCON2 ---
Date Seen: Jul 20, 2024 Referring Physician [facility] PHYSICIAN Reason for Consultation POSSIBLE INFECTED PACER SITE History of Present Illness 48-YEAR-OLD LADY WITH A HISTORY OF CHRONOTROPIC INCOMPETENCE AND NEAR SYNCOPAL EVENTS RECEIVED THE PACEMAKER APPROXIMATELY SIX DAYS AGO. SHE DEVELOPED SIGNIFICANT SWELLING AND SKIN IRRITATION. SHE HAD STERI-STRIPS PLACED. THERE IS MILD INDURATION AND PAIN. SLIGHT OOZING. IT APPEARS LIKE A PURULENT E SUBSTANCE. BECAUSE OF THE PAIN PATIENT CAME FOR FURTHER EVALUATION AND TREATMEN T. SHE DOES HAVE A HISTORY OF ALLERGIES TO ADHESIVES Past Medical History SHE HAS HAD A HISTORY OF CHRONOTROPIC INCOMPETENCE HISTORY OF ORTHOPEDIC ISSUES CHOLECYSTITIS, HYSTERECTOMY/OOPHORECTOMY MULTIPLE ORTHOPEDIC SURGERIES. Past Surgical History ORTHOPEDIC SURGERIES PREVIOUSLY MENTIONED WELL HYSTERECTOMY AND CHOLECYSTITIS Family History: Colon cancer G8 MOTHER FH: ovarian cancer G8 MOTHER Allergies: Coded Allergies: Povidone Iodine (Verified Allergy, Unknown, RASH, 07/14/24) Uncoded Allergies: ADHESIVE TAPE (Allergy, Severe, anaphylaxis, 07/19/24) Home Meds Reported Medications Multiple Vitamin (Multivitamins) Tab, 1 TAB PO DAILY, #90 TAB 3 Refills 07/14/24 Current Medications Current Medications Medications (Trade) Dose Ordered Sig/Leticia Route PRN Reason Start Time Stop Time Status Last Admin Vancomycin HCl 250 ml @ 250 mls/hr DAILY IV 07/20/24 10:00 UNV Naproxen (Naprosyn Tablet) 250 mg Q8HP PRN PO MILD PAIN (1-3 PAIN SCALE) 07/20/24 09:30 Pantoprazole Sodium (Protonix Tablet) 40 mg DAILY@1000 PO 07/20/24 10:00 07/20/24 11:16 Vancomycin HCl 0 ml @ 0 mls/hr UD IV 07/20/24 10:15 Vancomycin HCl 250 ml @ 250 mls/hr Q18H IV 07/20/24 12:00 07/20/24 11:17 Review of Systems NO CONSTITUTIONAL SYMPTOMS OF FEVERS CHILLS OR WEIGHT LOSS. ENT NEGATIVE. CARDIAC AND RESPIRATORY NOTED ABOVE WITH A HISTORY CHRONOTROPIC INCOMPETENCE. NO PULMONARY ISSUES. GI MUSCULOSKELETAL NOTED ABOVE WITH ORTHOPEDIC PROBLEMS IN THE PAST. HEMATOLOGICAL ONCOLOGICAL NEGATIVE IMMUNOLOGICAL ALLERGIES TO ADHESIVE TAPE. DERMATOLOGICALLY NOTED ABOVE. Vital Signs Vital Signs Date Time Temp Pulse Resp B/P (MAP) Pulse Ox O2 Delivery O2 Flow Rate FiO2 07/20/24 17:23 64 17 112/80 07/20/24 17:00 98.9 96 98.9 07/20/24 08:00 Room Air* 0 21 Physical Exam SHE IS ALERT AND ORIENTED NO ACUTE DISTRESS. HER BLOOD PRESSURE IS NOTED. HEENT EXAMINATION IS UNREMARKABLE LUNGS ARE CLEAR. HEART EXAM IS REGULAR. ABDOMINAL EXAMINATION IS UNREMARKABLE. EXTREMITIES ARE WELL PERFUSED. NEUROLOGICALLY INTACT. DERMATOLOGICALLY HER INFERIOR SUBCLAVIAN AREA IS HYPEREMIC. MILD CELLULITIS. THERE IS AN AXILLARY LYMPH NODE THAT IS TENDER AND PALPABLE. THERE IS SUPPORTIVE DRAINAGE FROM THE INCISION. STERI-STRIPS HAVE BEEN REMOVED. Labs/Diagnostic Data Labs Test 07/20/24 06:35 07/18/24 18:13 07/18/24 15:10 07/18/24 14:35 Range/Units White Blood Count 6.4 # 4.4-10.8 10^3/uL Red Blood Count 4.31 4.0-5.20 10^6/uL Hemoglobin 14.0 12.2-16.2 g/dL Hematocrit 40.7 36.0-46.0 % Mean Corpuscular Volume 94.6 80.0-100.0 fL Mean Corpuscular Hemoglobin 32.5 H 28.0-32.0 pg Mean Corpuscular Hemoglobin Concent 34.3 32.0-36.0 g/dL Red Cell Distribution Width 12.9 11.8-14.3 % Platelet Count 212 140-450 10^3/uL Mean Platelet Volume 10.0 6.9-10.8 fL Neutrophils (%) (Auto) 50.7 37.0-80.0 % Lymphocytes (%) (Auto) 32.1 10.0-50.0 % Monocytes (%) (Auto) 9.9 0.0-12.0 % Eosinophils (%) (Auto) 6.7 0.0-7.0 % Basophils (%) (Auto) 0.6 0.0-2.0 % Neutrophils # (Auto) 3.3 1.6-8.6 10 ^3/uL Lymphocytes # (Auto) 2.1 0.4-5.4 10 ^3/uL Monocytes # (Auto) 0.6 0-1.3 10 ^3/uL Eosinophils # (Auto) 0.4 0-0.8 10 ^3/uL Basophils # (Auto) 0 0-0.2 10 ^3/uL Nucleated Red Blood Cells 0.1 % Sodium Level 141 136-145 mmol/L Potassium Level 3.7 3.5-5.1 mmol/L Chloride Level 105 98-107 mmol/L Carbon Dioxide Level 28 20-31 mmol/L Anion Gap 8 5-15 Blood Urea Nitrogen 17 9-23 mg/dL Creatinine 1.12 H 0.550-1.02 mg/dL Glomerular Filtration Rate Calc 61 >90 mL/min BUN/Creatinine Ratio 15.2 10.0-20.0 Serum Glucose 90 74-106 mg/dL Calcium Level 9.9 8.7-10.4 mg/dL Troponin I High Sensitivity 4 </=34 ng/L Lactic Acid Level 0.8 0.4-2.0 mmol/L Magnesium Level 1.7 1.6-2.6 mg/dL Total Bilirubin 0.6 0.2-1.0 mg/dL Aspartate Amino Transferase (AST) 35 13-40 U/L Alanine Aminotransferase (ALT) 23 7-40 U/L Alkaline Phosphatase 100 46-116 U/L B-Type Natriuretic Peptide 20.22 0-100 pg/mL Total Protein 7.4 5.7-8.2 g/dL Albumin 4.6 3.2-4.8 g/dL Urine Color Light-yellow Yellow Urine Clarity Clear Clear Urine pH 7.5 5.0-9.0 Urine Specific [place] 1.020 1.001-1.035 Urine Protein Negative Negative Urine Ketones Negative Negative Urine Blood Negative Negative /uL Urine Nitrite Negative Negative Urine Bilirubin Negative Negative Urine Urobilinogen Normal Negative mg/dL Urine Leukocyte Esterase Negative Negative /uL Urine RBC 1 0 - 4 /hpf Urine WBC 1 0 - 5 /hpf Urine Squamous Epithelial Cells Few <5 /hpf Urine Bacteria None seen None Seen /hpf Urine Mucus Few None Seen Urine Glucose Normal Normal mg/dL Microbiology Date/Time Source Procedure Growth Status 07/19/24 00:50 Nose MRSA Screen - Final Complete 07/18/24 21:55 Blood Blood Culture - Preliminary NO GROWTH AFTER 24 HOURS OF INCUBATION. Resulted Assessment CELLULITIS. INFECTED PACER SITE LIKELY. ASSOCIATED ALLERGIC REACTION/CONTACT DERMATITIS. CHRONOTROPIC INCOMPETENCE. MULTIPLE MUSCULOSKELETAL/ORTHOPEDIC PROBLEMS CHRONIC PAIN SYNDROME Plan/Recommendation WE WILL REMOVE PACER AND LEADS. NO NEED FOR TEMPORARY PACEMAKER AT THIS TIME. CULTURAL LEADS AND PURULENT DRAINAGE. CONTINUE WITH ANTIBIOTICS FOR NOW. DISCUSSED CASE WITH DR. SUGGS. WE WILL INITIATE CEFTRIAXONE A G Q 24 HOURS IV ALONG WITH VANCOMYCIN PER PHARMACY PROTOCOL. Plan discussed with: Patient, Spouse Date of Service: Jul 20, 2024 Billing Provider: CHINO ESPINOZA Sr., MD Cardiology Common Codes: [id number] INP/OBS CARE (High) CHINO ESPINOZA Sr., MD Jul 20, 2024 18:26
--- NOTE | 2024-07-20 19:11 | DVHOP2 ---
Operative Report -Cardiology Report Details Date: 07/20/24 Preop Diagnosis: INFECTED PACEMAKER POCKET. Postop Diagnosis: Subdermal inflammation and allergic reaction secondary to Steri-Strips Surgeon: Chino Garcia MD Anesthesiologist: Conscious sedation local anesthetic Anesthesia: Mac, Local Consent: The patient was informed of the risks and benefits of the procedure. These include but are not limited to complications of anesthesia, postoperative infection, incomplete relief of symptoms, recurrence of symptoms, damage to blood vessels, nerves and tendons, deep venous thrombosis, pulmonary embolism and possible need for repeat surgery in the future. Complications: None Estimated Blood Loss: 2 cc Findings: Inflamed dermal and subdermal tissue overlying pacer pocket from recently placed pacemaker Indications for Surgery: Allergic reaction to Steri-Strips Name of Procedure Performed Debridement of subdermal and superficial subcutaneous tissue overlying pacemaker pocket Procedure Details Procedure Details: Under conscious sedation in mild local anesthetic patient was prepped and draped in usual fashion subsequent to obtaining informed consent. The skin was opened and the 4-0 Monocryl was removed from the skin. We flushed the 1st layer below the suture line. We noticed that the aphasia in the subcutaneous tissue was intact. There was no oozing or purulence emanating from the inside of the pocket. It appears that most of the inflammation was superficially. We did not perforate the fascia or enter the pocket or pacemaker space, there was no fluid within the pacemaker pocket. we irrigated the subdermal/superficial subcutaneous space with vancomycin solution. After a copious amount of irrigation we noticed that there was no further purulence noted with an intact facial and sub dermal wall we opted to leave the wound to heal by secondary intent. We covered with the pocket with sterile 4x4s and used an Jason bandage to hold the gauze in place. No tape or adhesive we will be used. Twice a day dressing changes will occur. We will monitor of the pacer pocket for progressive inflammation and/or separation/purulence. Consider removing pacemaker completely if suppuration or purulence continues. Fluid from pocket was cultured. Specimen: Culture of subdermal tissue obtained Condition Good Disposition Still a Patient CHINO GARCIA Sr., MD Jul 20, 2024 19:11
[2024-07-20] MEDS ORDERED: HYDROcodone-ACET 5/325MG TAB PO PRN (19:45)
[2024-07-21] VITALS (8 sets, daily range): BP systolic 97–112; BP diastolic 54–79; PULSE 63–100; RESP 14–18; TEMP 97.6–98.2; O2SAT 96–100
--- NOTE | 2024-07-21 00:04 | DVHINCON2 ---
Date of service: Jul 20, 2024 Family History: Colon cancer G8 MOTHER FH: ovarian cancer G8 MOTHER Allergies: Coded Allergies: Povidone Iodine (Verified Allergy, Unknown, RASH, 07/14/24) Uncoded Allergies: ADHESIVE TAPE (Allergy, Severe, anaphylaxis, 07/19/24) Home Meds Reported Medications Multiple Vitamin (Multivitamins) Tab, 1 TAB PO DAILY, #90 TAB 3 Refills 07/14/24 Current Medications Current Medications Medications (Trade) Dose Ordered Sig/Leticia Route PRN Reason Start Time Stop Time Status Last Admin Vancomycin HCl 250 ml @ 250 mls/hr DAILY IV 07/20/24 10:00 UNV Naproxen (Naprosyn Tablet) 250 mg Q8HP PRN PO MILD PAIN (1-3 PAIN SCALE) 07/20/24 09:30 Pantoprazole Sodium (Protonix Tablet) 40 mg DAILY@1000 PO 07/20/24 10:00 07/20/24 11:16 Vancomycin HCl 0 ml @ 0 mls/hr UD IV 07/20/24 10:15 Vancomycin HCl 250 ml @ 250 mls/hr Q18H IV 07/20/24 12:00 07/20/24 11:17 Ceftriaxone Sodium 50 ml @ 100 mls/hr DAILY@09 IV 07/21/24 09:00 Acetaminophen/ Hydrocodone Bitart ([place]uster 5/325MG Tab) 1 tab Q6HPRN PRN PO SEVERE PAIN (7-10 PAIN SCALE) 07/20/24 19:45 07/20/24 23:03 DC Vital Signs Vital Signs Date Time Temp Pulse Resp B/P (MAP) Pulse Ox O2 Delivery O2 Flow Rate FiO2 07/20/24 23:10 108 14 130/79 07/20/24 21:00 97.7 97 97.7 07/20/24 08:00 Room Air* 0 21 Labs/Diagnostic Data Labs Test 07/20/24 06:35 07/18/24 18:13 07/18/24 15:10 07/18/24 14:35 Range/Units White Blood Count 6.4 # 4.4-10.8 10^3/uL Red Blood Count 4.31 4.0-5.20 10^6/uL Hemoglobin 14.0 12.2-16.2 g/dL Hematocrit 40.7 36.0-46.0 % Mean Corpuscular Volume 94.6 80.0-100.0 fL Mean Corpuscular Hemoglobin 32.5 H 28.0-32.0 pg Mean Corpuscular Hemoglobin Concent 34.3 32.0-36.0 g/dL Red Cell Distribution Width 12.9 11.8-14.3 % Platelet Count 212 140-450 10^3/uL Mean Platelet Volume 10.0 6.9-10.8 fL Neutrophils (%) (Auto) 50.7 37.0-80.0 % Lymphocytes (%) (Auto) 32.1 10.0-50.0 % Monocytes (%) (Auto) 9.9 0.0-12.0 % Eosinophils (%) (Auto) 6.7 0.0-7.0 % Basophils (%) (Auto) 0.6 0.0-2.0 % Neutrophils # (Auto) 3.3 1.6-8.6 10 ^3/uL Lymphocytes # (Auto) 2.1 0.4-5.4 10 ^3/uL Monocytes # (Auto) 0.6 0-1.3 10 ^3/uL Eosinophils # (Auto) 0.4 0-0.8 10 ^3/uL Basophils # (Auto) 0 0-0.2 10 ^3/uL Nucleated Red Blood Cells 0.1 % Sodium Level 141 136-145 mmol/L Potassium Level 3.7 3.5-5.1 mmol/L Chloride Level 105 98-107 mmol/L Carbon Dioxide Level 28 20-31 mmol/L Anion Gap 8 5-15 Blood Urea Nitrogen 17 9-23 mg/dL Creatinine 1.12 H 0.550-1.02 mg/dL Glomerular Filtration Rate Calc 61 >90 mL/min BUN/Creatinine Ratio 15.2 10.0-20.0 Serum Glucose 90 74-106 mg/dL Calcium Level 9.9 8.7-10.4 mg/dL Troponin I High Sensitivity 4 </=34 ng/L Lactic Acid Level 0.8 0.4-2.0 mmol/L Magnesium Level 1.7 1.6-2.6 mg/dL Total Bilirubin 0.6 0.2-1.0 mg/dL Aspartate Amino Transferase (AST) 35 13-40 U/L Alanine Aminotransferase (ALT) 23 7-40 U/L Alkaline Phosphatase 100 46-116 U/L B-Type Natriuretic Peptide 20.22 0-100 pg/mL Total Protein 7.4 5.7-8.2 g/dL Albumin 4.6 3.2-4.8 g/dL Urine Color Light-yellow Yellow Urine Clarity Clear Clear Urine pH 7.5 5.0-9.0 Urine Specific [place] 1.020 1.001-1.035 Urine Protein Negative Negative Urine Ketones Negative Negative Urine Blood Negative Negative /uL Urine Nitrite Negative Negative Urine Bilirubin Negative Negative Urine Urobilinogen Normal Negative mg/dL Urine Leukocyte Esterase Negative Negative /uL Urine RBC 1 0 - 4 /hpf Urine WBC 1 0 - 5 /hpf Urine Squamous Epithelial Cells Few <5 /hpf Urine Bacteria None seen None Seen /hpf Urine Mucus Few None Seen Urine Glucose Normal Normal mg/dL Microbiology Date/Time Source Procedure Growth Status 07/19/24 00:50 Nose MRSA Screen - Final Complete 07/18/24 21:55 Blood Blood Culture - Preliminary NO GROWTH AFTER 48 HOURS OF INCUBATION. Resulted Problems(with codes): (1) Gastrocnemius tendon rupture (2) Postoperative nausea (3) Cellulitis of chest wall (4) Allergic reaction (5) Chest pain (6) Musculoskeletal pain Plan/Recommendation ASSESSMENT AND PLAN: ID Problem List: - Allergic reaction to adhesive tape - Pacemaker site erythema and swelling - Recent pacemaker placement (07/15/2024) - Symptomatic bradycardia - Local cellulitis Assessment: This is a 48 y.o. female with a past medical history of symptomatic bradycardia status post recent pacemaker placement on 07/15/2024, who presents with redness, irritation, and swelling at the pacemaker site. The patient reports significant pain, redness, and swelling at the pacemaker site, potentially due to an allergic reaction to adhesive tape. She denies fevers, chills, nausea, or vomiting. There are no signs of systemic infection. Operative findings by Dr. Garcia indicate that the redness and irritation are at the subdermal and subcutaneous tissue levels. The pacemaker device itself is not involved, and there is no fluid in the pacemaker pocket. The area was irrigated intraoperatively, and operative cultures were obtained (pending results). Blood cultures are negative to date. Plan: - Continue intravenous vancomycin and ceftriaxone for empiric antibiotic coverage. - Monitor operative and blood culture results; adjust antibiotics accordingly. - Anticipate transition to oral antibiotics if cultures remain negative and clinical improvement is observed. - Provide pain management for pacemaker site discomfort. - Educate the patient on wound care and signs of infection. - Follow up with cardiology for pacemaker site evaluation. - Arrange outpatient follow-up upon discharge planning. Isolation Precautions: standard Assessment and plan were discussed with the patient as written above. Plan is subject to change pending incorporation of new incoming information/diagnostics. Updates may be added as addendum at the bottom of this note. Thank you for this consult. Infectious Disease will continue to follow. Please contact us for any questions or concerns. History: The patient's chart and medications were reviewed in detail, and the patient was seen and examined. History obtained from: patient The patient is a 48 y.o. female with a past medical history of symptomatic bradycardia status post recent pacemaker placement on 07/15/2024, who presents with redness, irritation, and swelling at the pacemaker site. She reports that she developed an allergic reaction to adhesive tape used postoperatively. The area is red, irritated, swollen, and very painful. She denies fevers, chills, nausea, or vomiting. Review of Systems: A complete 10-system review of systems was completed and negative except as noted in the HPI or here. ROS: - CONSTITUTIONAL: Denies weight loss, fever, and chills. - HEENT: Denies changes in vision and hearing. - RESPIRATORY: Denies shortness of breath and cough. - CV: Denies palpitations and chest pain. - GI: Denies abdominal pain, nausea, vomiting, and diarrhea. - : Denies dysuria and urinary frequency. - MSK: Denies myalgia and joint pain. - SKIN: Reports redness, irritation, and swelling at pacemaker site. - NEUROLOGICAL: Denies headache and syncope. - PSYCHIATRIC: Denies recent changes in mood, anxiety, and depression. Past Medical History: Diagnosis - Symptomatic bradycardia Past Surgical History: - Appendectomy - Cholecystectomy - Hysterectomy Home Medications: Prior to Admission: - No home medications reported. Allergies: - No known allergies. Family History: - Cancer (type unspecified) in family members - Stroke in family members Social History: Socioeconomic History - Marital status: Not specified Tobacco Use - Smoking status: Never smoked Substance Use - Alcohol use: Denies alcohol use - Drug use: Denies intravenous drug use Other - Denies use of illicit substances. Objective: Vital Signs on Arrival: - Temp: 98.3 F - BP: 116/63 mmHg - Pulse: 63 bpm - Resp: 18 breaths per minute - SpO?: 99% on room air Most Recent Vital Signs: - Temp: [Most recent temperature] - BP: [Most recent blood pressure] - Pulse: [Most recent pulse] - Resp: [Most recent respiratory rate] - SpO?: [Most recent oxygen saturation] Admission Weight: - Weight: [Not specified] - BMI: [Not specified] Physical Exam: General: NAD Neck: Supple. No masses. HEENT: PERRL. Normal lids and conjunctiva. Moist mucous membranes. Oropharynx without lesions, exudates, or excessive erythema. Normal appearance of the external aspects of the nose and ears. Heart: Regular rhythm, normal rate. No murmur. No lower extremity edema. Lungs: Normal respiratory effort. Clear to auscultation bilaterally. No wheezes. No crackles. Abdomen: Soft. Non-tender. Non-distended. No masses or abdominal hernia. Msk: No digital cyanosis. Normal strength and tone in all 4 limbs. Skin: Warm and dry. Redness, irritation, and swelling at pacemaker site. Neuro: Alert. No facial droop or slurred speech. Extra-ocular movements intact. Sensation intact to soft touch in all 4 limbs. Psych: Appropriate mood. Full affect. Oriented to person, place, time, and situation. Lines: Active Lines - Peripheral IV Line placed on 07/23/2024 in the left upper arm, 20 gauge, <1 day duration. Diagnostic Studies: Available diagnostic studies were reviewed personally. Significant relevant results and findings are outlined below or addressed in the Assessment and Plan above. Laboratory Results: - WBC: 6.3 x10/L - Hemoglobin: 14.5 g/dL - Platelets: 265 x10/L - Sodium: 140 mmol/L - BUN: 9 mg/dL - Creatinine: 1.05 mg/dL Microbiology: - Operative cultures: Pending - Blood cultures: No growth to date Pertinent Imaging: - No imaging studies performed at this time. [End of Note] Plan discussed with: Patient ANILA BUENROSTRO MD Jul 21, 2024 00:04
[2024-07-21 06:39] LABS: Alanine Aminotransferase 25 U/L (7-40); Alkaline Phosphatase 86 U/L (46-116); Anion Gap 7 (5-15); BUN/Creatinine Ratio 13.7 (10.0-20.0); Blood Urea Nitrogen 14 mg/dL (9-23); CRP High Sensitivity 0.16 mg/dL (<1.0); Calcium 9.7 mg/dL (8.7-10.4); Carbon Dioxide 28 mmol/L (20-31); Chloride 104 mmol/L (98-107); Glucose 86 mg/dL (74-106); Potassium 3.7 mmol/L (3.5-5.1); Sodium 139 mmol/L (136-145)
[2024-07-21 06:40] LABS: Albumin 4.2 g/dL (3.2-4.8); Aspartate Aminotransferase 35 U/L (13-40); Bilirubin, Total 0.3 mg/dL (0.2-1.0); Total Protein 6.9 g/dL (5.7-8.2)
[2024-07-21 06:41] LABS: Basophils # (auto) 0 10 ^3/uL (0-0.2); Basophils % (auto) 0.5 % (0.0-2.0); Eosinophils # (auto) 0.4 10 ^3/uL (0-0.8); Eosinophils % (auto) 5.3 % (0.0-7.0); Hematocrit 41.5 % (36.0-46.0); Hemoglobin 14.3 g/dL (12.2-16.2); Lymphocytes # (auto) 1.8 10 ^3/uL (0.4-5.4); Lymphocytes % (auto) 25.2 % (10.0-50.0); Mean Corpuscular Hemoglobin 32.5 pg (28.0-32.0); Mean Corpuscular Hgb Conc. 34.5 g/dL (32.0-36.0); Monocytes # (auto) 0.7 10 ^3/uL (0-1.3); Monocytes % (auto) 10.2 % (0.0-12.0); Neutrophils # (auto) 4.1 10 ^3/uL (1.6-8.6); Neutrophils % (auto) 58.8 % (37.0-80.0); Nucleated Red Blood Cells % 0.1 %; Platelet Count (auto) 218 10^3/uL (140-450); Red Blood Cells 4.42 10^6/uL (4.0-5.20); Red Cell Distribution Width 12.7 % (11.8-14.3)
--- NOTE | 2024-07-21 08:56 | DVHPN2 ---
Consult Progress Note Date Seen: Jul 21, 2024 Subjective Patient reports: Other (New general improvement in overall pain.) Review of Systems: HEENT:Normal, CVS:Normal, RESPIRATORY:Normal, GI:Normal, :Normal, MSK:Abnormal (Erythema around pacer pocket present. Stented to palpation. Reactive lymph node present left axilla. Minimal drainage this morning.) Objective vital signs Vital Sign Date Time Temp Pulse Resp B/P (MAP) Pulse Ox O2 Delivery O2 Flow Rate FiO2 07/21/24 07:19 88 14 107/70 07/21/24 05:02 97.8 100 97.8 07/20/24 20:00 Room Air* 0 21 Total Intake and Output 07/20/24 07/20/24 07/21/24 15:00 23:00 07:00 Intake Total 250 ml 100 ml Output Total 300 ml Balance 250 ml 100 ml -300 ml medications Current Medications Medications Dose Ordered Sig/Leticia Route Start Time Stop Time Status Last Admin Dose Admin Docusate Sodium 100 mg BIDPRN PRN PO 07/18/24 20:30 Acetaminophen 650 mg Q6HP PRN PO 07/18/24 20:30 Acetaminophen/ Hydrocodone Bitart 1 tab Q6HPRN PRN PO 07/18/24 20:30 Morphine Sulfate 2 mg Q4HPRN PRN IV 07/18/24 20:30 07/21/24 07:19 2 MG Nitroglycerin 0.4 mg Q5MINP PRN SL 07/18/24 20:30 Morphine Sulfate 2 mg Q30M PRN IV 07/18/24 20:30 Famotidine 20 mg Q12HR IV 07/18/24 22:00 07/21/24 08:08 20 MG Diphenhydramine HCl 25 mg Q6HP PRN IV 07/18/24 20:30 07/21/24 07:17 25 MG Vancomycin HCl 250 ml @ 250 mls/hr DAILY IV 07/20/24 10:00 UNV Naproxen 250 mg Q8HP PRN PO 07/20/24 09:30 Pantoprazole Sodium 40 mg DAILY@1000 PO 07/20/24 10:00 07/21/24 08:06 40 MG Vancomycin HCl 0 ml @ 0 mls/hr UD IV 07/20/24 10:15 Vancomycin HCl 250 ml @ 250 mls/hr Q18H IV 07/20/24 12:00 07/21/24 08:07 250 MLS/HR Ceftriaxone Sodium 50 ml @ 100 mls/hr DAILY@09 IV 07/21/24 09:00 Examination: GENERAL:Abnormal (Feels a bit distraught. He was not able to sleep came in for alarm going off last night), HEENT:Normal, NECK:Normal, LUNGS:Normal, CVS:Normal, ABDOMEN:Normal, MSK:Normal, SKIN:Normal (Erythema around pacer pocket. No significant increase since yesterday), SKIN:Abnormal, NEURO:Normal, :Normal laboratory and microbiology Laboratory Tests 07/21/24 05:00 Test 07/21/24 05:00 Range/Units Serum Glucose 86 74-106 mg/dL Problem List/Assessment/Plan Problem List/Assessment/Plan Change dressings b.i.d.. No improvement in erythema we will remove generator and leads within 24 hours Plan discussed with: Patient, Spouse, Daughter Date of Service: Jul 21, 2024 Billing Provider: CHINO ESPINOZA Sr., MD Cardiology Common Codes: 32007-QAHYXODLGI HOSP CARE(High (Dressing change) CHINO ESPINOZA Sr., MD Jul 21, 2024 08:56
[2024-07-21] MEDS: cefTRIAXone 1GM/50ML D5W 50 ML IV SCH (10:11)
[2024-07-21] MEDS: methylPREDNISolone SOD SUCC 125 MG/2 ML VL ONE (10:13)
[2024-07-21] MEDS: FAMOTIDINE (10MG/ML) 2ML VL IV ONE (10:13)
[2024-07-21] MEDS: VANCOMYCIN HCL 1000 MG VL ONE (10:14)
[2024-07-21] MEDS: cefTRIAXone 1GM/50ML D5W 50 ML IV ONE (10:14)
[2024-07-21] MEDS: fentaNYL CITRATE 100 MCG/2 ML VL ONE (10:14)
[2024-07-21] MEDS: LIDOCAINE 2%HCL (LOCAL ANESTH.) INJ 20ML MDV ONE (10:14)
--- NOTE | 2024-07-21 13:21 | DVHPN2 ---
Progress Note - Dictate Date Seen: Jul 21, 2024 Medical Necessity Reason Pt with a Central, PICC or Fol: No Subjective Patient is seen and evaluated. Patient evaluated by Cardiology and pacemaker he is in place and surrounding erythema appears improved. vital signs Vital Sign Date Time Temp Pulse Resp B/P (MAP) Pulse Ox O2 Delivery O2 Flow Rate FiO2 07/21/24 11:11 73 16 109/84 07/21/24 09:00 98.0 97 98.0 07/21/24 08:00 Room Air* 0 21 Total Intake and Output 07/20/24 07/20/24 07/21/24 15:00 23:00 07:00 Intake Total 250 ml 100 ml Output Total 300 ml Balance 250 ml 100 ml -300 ml medications Current Medications Medications Dose Ordered Sig/Leticia Route Start Time Stop Time Status Last Admin Dose Admin Docusate Sodium 100 mg BIDPRN PRN PO 07/18/24 20:30 Acetaminophen 650 mg Q6HP PRN PO 07/18/24 20:30 Acetaminophen/ Hydrocodone Bitart 1 tab Q6HPRN PRN PO 07/18/24 20:30 Morphine Sulfate 2 mg Q4HPRN PRN IV 07/18/24 20:30 07/21/24 11:09 2 MG Nitroglycerin 0.4 mg Q5MINP PRN SL 07/18/24 20:30 Morphine Sulfate 2 mg Q30M PRN IV 07/18/24 20:30 Famotidine 20 mg Q12HR IV 07/18/24 22:00 07/21/24 08:08 20 MG Diphenhydramine HCl 25 mg Q6HP PRN IV 07/18/24 20:30 07/21/24 12:59 25 MG Vancomycin HCl 250 ml @ 250 mls/hr DAILY IV 07/20/24 10:00 UNV Naproxen 250 mg Q8HP PRN PO 07/20/24 09:30 Pantoprazole Sodium 40 mg DAILY@1000 PO 07/20/24 10:00 07/21/24 08:06 40 MG Vancomycin HCl 0 ml @ 0 mls/hr UD IV 07/20/24 10:15 Ceftriaxone Sodium 50 ml @ 100 mls/hr DAILY@09 IV 07/21/24 09:00 07/21/24 10:11 100 MLS/HR Vancomycin HCl 750 mg/Dextrose 100 ml @ 100 mls/hr Q12H IV 07/21/24 18:00 Hydrocortisone 1 applic BID TOP 07/21/24 13:00 objective Alert awake oriented x3. HEENT neck supple no JVD. Heart regular rate and rhythm S1-S2. Without murmurs. Lungs fair air movement without rales wheezes. Abdomen soft positive bowel sounds. Extremities no edema. Left upper chest pacemaker insertion site appears clean and dry and without any drainage. Contact dermatitis with a erythema noted. laboratory and microbiology Laboratory Tests 07/21/24 05:00 Test 07/21/24 05:00 Range/Units Serum Glucose 86 74-106 mg/dL Assessment/Plan Plan is to continue current antibiotics as she is on. Infectious Disease following the patient and recommending possible IV antibiotics for few weeks given pacemaker site cellulitis/infection. Today I have discussed this with the patient and she does not want PICC line or midline placed yet. She wants to discuss with the Dr. Doroteo michel Cardiology regarding further treatment. No changes to current management. Problems(with codes): (1) Chest pain (2) Allergic reaction (3) Cellulitis of chest wall Plan discussed with: Patient, Other ZENY CURRY MD Jul 21, 2024 13:21
[2024-07-21] MEDS: HYDROCORTONE 1% TOPICAL CREAM 30 GM TUBE TOP SCH (13:31)
[2024-07-21] MEDS: VANCOMYCIN 750MG VIAL 750 MG in D5W 5% 100 ML IV SCH (18:07)
--- NOTE | 2024-07-21 22:39 | DVHPN2 ---
Consult Progress Note Date Seen: Jul 21, 2024 Subjective Patient reports: Feels better (nof ever or chills) Objective vital signs Vital Sign Date Time Temp Pulse Resp B/P (MAP) Pulse Ox O2 Delivery O2 Flow Rate FiO2 07/21/24 21:08 74 18 109/79 07/21/24 21:00 97.7 96 97.7 07/21/24 08:00 Room Air* 0 21 Total Intake and Output 07/20/24 07/20/24 07/21/24 15:00 23:00 07:00 Intake Total 250 ml 100 ml Output Total 300 ml Balance 250 ml 100 ml -300 ml medications Current Medications Medications Dose Ordered Sig/Leticia Route Start Time Stop Time Status Last Admin Dose Admin Docusate Sodium 100 mg BIDPRN PRN PO 07/18/24 20:30 Acetaminophen 650 mg Q6HP PRN PO 07/18/24 20:30 Acetaminophen/ Hydrocodone Bitart 1 tab Q6HPRN PRN PO 07/18/24 20:30 Morphine Sulfate 2 mg Q4HPRN PRN IV 07/18/24 20:30 07/21/24 21:08 2 MG Nitroglycerin 0.4 mg Q5MINP PRN SL 07/18/24 20:30 Morphine Sulfate 2 mg Q30M PRN IV 07/18/24 20:30 Famotidine 20 mg Q12HR IV 07/18/24 22:00 07/21/24 22:06 20 MG Diphenhydramine HCl 25 mg Q6HP PRN IV 07/18/24 20:30 07/21/24 21:02 25 MG Vancomycin HCl 250 ml @ 250 mls/hr DAILY IV 07/20/24 10:00 UNV Naproxen 250 mg Q8HP PRN PO 07/20/24 09:30 Pantoprazole Sodium 40 mg DAILY@1000 PO 07/20/24 10:00 07/21/24 08:06 40 MG Vancomycin HCl 0 ml @ 0 mls/hr UD IV 07/20/24 10:15 Ceftriaxone Sodium 50 ml @ 100 mls/hr DAILY@09 IV 07/21/24 09:00 07/21/24 10:11 100 MLS/HR Vancomycin HCl 750 mg/Dextrose 100 ml @ 100 mls/hr Q12H IV 07/21/24 18:00 07/21/24 18:07 100 MLS/HR Hydrocortisone 1 applic BID TOP 07/21/24 13:00 07/21/24 22:08 1 APPLIC Physical Exam: General: NAD Neck: Supple. No masses. HEENT: PERRL. Normal lids and conjunctiva. Moist mucous membranes. Oropharynx without lesions, exudates, or excessive erythema. Normal appearance of the external aspects of the nose and ears. Heart: Regular rhythm, normal rate. No murmur. No lower extremity edema. Lungs: Normal respiratory effort. Clear to auscultation bilaterally. No wheezes. No crackles. Abdomen: Soft. Non-tender. Non-distended. No masses or abdominal hernia. Msk: No digital cyanosis. Normal strength and tone in all 4 limbs. Skin: Warm and dry. Redness, irritation, and swelling at pacemaker site. Neuro: Alert. No facial droop or slurred speech. Extra-ocular movements intact. Sensation intact to soft touch in all 4 limbs. Psych: Appropriate mood. Full affect. Oriented to person, place, time, and situation. laboratory and microbiology Laboratory Tests 07/21/24 05:00 Test 07/21/24 05:00 Range/Units Serum Glucose 86 74-106 mg/dL Problem List/Assessment/Plan Problem List/Assessment/Plan (1) Gastrocnemius tendon rupture (2) Postoperative nausea (3) Cellulitis of chest wall (4) Allergic reaction (5) Chest pain (6) Musculoskeletal pain Plan/Recommendation ASSESSMENT AND PLAN: ID Problem List: - Allergic reaction to adhesive tape - Pacemaker site erythema and swelling - Recent pacemaker placement (07/15/2024) - Symptomatic bradycardia - Local cellulitis Assessment: This is a 48 y.o. female with a past medical history of symptomatic bradycardia status post recent pacemaker placement on 07/15/2024, who presents with redness, irritation, and swelling at the pacemaker site. The patient reports significant pain, redness, and swelling at the pacemaker site, potentially due to an allergic reaction to adhesive tape. She denies fevers, chills, nausea, or vomiting. There are no signs of systemic infection. Operative findings by Dr. Garcia indicate that the redness and irritation are at the subdermal and subcutaneous tissue levels. The pacemaker device itself is not involved, and there is no fluid in the pacemaker pocket. The area was irrigated intraoperatively, and operative cultures were obtained (pending results). Blood cultures are negative to date. 07/21: pmm site continues to very tender and painful Plan: - Continue intravenous vancomycin and ceftriaxone for empiric antibiotic coverage. - Monitor operative and blood culture results; adjust antibiotics accordingly. - Anticipate transition to oral antibiotics if cultures remain negative and clinical improvement is observed. - Provide pain management for pacemaker site discomfort. - Educate the patient on wound care and signs of infection. - Follow up with cardiology for pacemaker site evaluation. - Arrange outpatient follow-up upon discharge planning. Isolation Precautions: standard Assessment and plan were discussed with the patient as written above. Plan is subject to change pending incorporation of new incoming information/diagnostics. Updates may be added as addendum at the bottom of this note. Thank you for this consult. Infectious Disease will continue to follow. Please contact us for any questions or concerns. Plan discussed with: Patient ANILA BUENROSTRO MD Jul 21, 2024 22:39
[2024-07-22] VITALS (7 sets, daily range): BP systolic 94–133; BP diastolic 67–89; PULSE 62–76; RESP 16–20; TEMP 97.5–98; O2SAT 91–98
[2024-07-22 07:02] LABS: Basophils # (auto) 0 10 ^3/uL (0-0.2); Basophils % (auto) 0.6 % (0.0-2.0); Eosinophils # (auto) 0.4 10 ^3/uL (0-0.8); Eosinophils % (auto) 5.6 % (0.0-7.0); Hematocrit 42.2 % (36.0-46.0); Hemoglobin 14.3 g/dL (12.2-16.2); Lymphocytes # (auto) 1.8 10 ^3/uL (0.4-5.4); Lymphocytes % (auto) 25.9 % (10.0-50.0); Mean Corpuscular Hemoglobin 32.2 pg (28.0-32.0); Mean Corpuscular Volume 94.8 fL (80.0-100.0); Monocytes # (auto) 0.8 10 ^3/uL (0-1.3); Monocytes % (auto) 12.1 % (0.0-12.0); Neutrophils # (auto) 3.9 10 ^3/uL (1.6-8.6); Neutrophils % (auto) 55.8 % (37.0-80.0); Nucleated Red Blood Cells % 0.1 %; Platelet Count (auto) 227 10^3/uL (140-450); Red Blood Cells 4.45 10^6/uL (4.0-5.20); Red Cell Distribution Width 12.8 % (11.8-14.3)
[2024-07-22 07:33] LABS: Alanine Aminotransferase 22 U/L (7-40); Albumin 4.2 g/dL (3.2-4.8); Alkaline Phosphatase 91 U/L (46-116); Anion Gap 6 (5-15); Aspartate Aminotransferase 23 U/L (13-40); BUN/Creatinine Ratio 14.3 (10.0-20.0); Blood Urea Nitrogen 15 mg/dL (9-23); Calcium 10.1 mg/dL (8.7-10.4); Carbon Dioxide 28 mmol/L (20-31); Chloride 104 mmol/L (98-107); Glucose 90 mg/dL (74-106); Potassium 3.8 mmol/L (3.5-5.1); Sodium 138 mmol/L (136-145)
[2024-07-22 07:34] LABS: Bilirubin, Total 0.3 mg/dL (0.2-1.0)
[2024-07-22 07:35] LABS: Total Protein 7.1 g/dL (5.7-8.2)
--- NOTE | 2024-07-22 11:52 | DVHPN2 ---
Consult Progress Note Date Seen: Jul 22, 2024 Subjective Patient reports: Feels better (Less pain. No fevers or chills.) Review of Systems: HEENT:Normal, CVS:Normal, RESPIRATORY:Normal, GI:Normal, :Normal, MSK:Abnormal, NEURO:Normal Objective vital signs Vital Sign Date Time Temp Pulse Resp B/P (MAP) Pulse Ox O2 Delivery O2 Flow Rate FiO2 07/22/24 09:47 70 18 115/73 07/22/24 08:00 97.9 96 97.9 07/22/24 08:00 Room Air* 0 21 Total Intake and Output 07/21/24 07/21/24 07/22/24 15:00 23:00 07:00 Intake Total 300 ml 100 ml 20 ml Balance 300 ml 100 ml 20 ml medications Current Medications Medications Dose Ordered Sig/Leticia Route Start Time Stop Time Status Last Admin Dose Admin Docusate Sodium 100 mg BIDPRN PRN PO 07/18/24 20:30 Acetaminophen 650 mg Q6HP PRN PO 07/18/24 20:30 Acetaminophen/ Hydrocodone Bitart 1 tab Q6HPRN PRN PO 07/18/24 20:30 Morphine Sulfate 2 mg Q4HPRN PRN IV 07/18/24 20:30 07/22/24 09:47 2 MG Nitroglycerin 0.4 mg Q5MINP PRN SL 07/18/24 20:30 Morphine Sulfate 2 mg Q30M PRN IV 07/18/24 20:30 Famotidine 20 mg Q12HR IV 07/18/24 22:00 07/22/24 10:54 20 MG Diphenhydramine HCl 25 mg Q6HP PRN IV 07/18/24 20:30 07/22/24 10:52 25 MG Vancomycin HCl 250 ml @ 250 mls/hr DAILY IV 07/20/24 10:00 UNV Naproxen 250 mg Q8HP PRN PO 07/20/24 09:30 Pantoprazole Sodium 40 mg DAILY@1000 PO 07/20/24 10:00 07/22/24 09:50 40 MG Vancomycin HCl 0 ml @ 0 mls/hr UD IV 07/20/24 10:15 Ceftriaxone Sodium 50 ml @ 100 mls/hr DAILY@09 IV 07/21/24 09:00 07/22/24 09:35 100 MLS/HR Vancomycin HCl 750 mg/Dextrose 100 ml @ 100 mls/hr Q12H IV 07/21/24 18:00 07/22/24 06:24 100 MLS/HR Hydrocortisone 1 applic BID TOP 07/21/24 13:00 07/21/24 22:08 1 APPLIC Examination: GENERAL:Normal, HEENT:Normal, NECK:Normal, LUNGS:Normal, CVS:Normal, ABDOMEN:Normal, MSK:Abnormal, SKIN:Abnormal (Notably improved cellulitis and swelling from the left subclavian area at pacer site. Scab formed over wound. Inflammation resolving. Less pain. No fluctuance or suppuration), NEURO:Normal laboratory and microbiology Laboratory Tests 07/22/24 05:26 Test 07/22/24 05:26 Range/Units Serum Glucose 90 74-106 mg/dL Problem List/Assessment/Plan Problem List/Assessment/Plan Continue antibiotics. Id has requested PICC line. Thus far cultures are negative. We will continue with conservative medical management. Monitoring pacer for fluctuance and or increasing cellulitis. Plan discussed with: Patient, Spouse, Daughter Date of Service: Jul 22, 2024 Billing Provider: CHINO ESPINOZA Sr., MD Cardiology Common Codes: 19416-[id number](High CHINO ESPINOZA Sr., MD Jul 22, 2024 11:52
[2024-07-22] MEDS: NEOMYCIN-BACITRACIN-POLYM UNITDOSE PKG TOP OINT TOP SCH (15:56)
--- NOTE | 2024-07-22 19:52 | DVHSR ---
APPROVED REPORT EXAM: Two-dimensional and M-mode echocardiogram with Doppler and color Doppler. Blood Pressure: 116/68 mmHg INDICATION Chest pressure RISK FACTORS Height: 64, Weight: 126 DIMENSIONS LVDd4.6 (3.8-5.7cm)LA (2D)3.3 (1.9-4.0cm)Aortic Root3.4 (2.0-3.7cm) LVDs3.3 (2.5-4.0cm)LA (MM) (1.9-4.0cm)Aortic Cusp Exc1.7 (1.5-2.0cm) EF (%) 55.0 (55-70%)Rt. Atrium3.5 (1.9-4.0cm)Asc. Aorta cm IVSd1.0 (0.7-1.1cm)RV (D) (1.8-2.4cm) PWd1.1 (0.7-1.1cm) Mitral Valve MitralMitral Stenosis E wave0.70m/sMV Mean GR.mmHg A wave0.53m/sMV Peak GR.mmHg E/A ratio1.32D MVAcm2 DECEL [id number] 1/2 [id number] IVRTmsDop MVA4.83cm2 Aortic Valve Aortic ValveAortic Stenosis V11.10m/Pedro Luis Mean GR.4mmHg V21.29m/Pedro Luis Peak GR.7mmHg LVOT Diameter2.0 (1.8-2.4cm)Doppler AVA2.68cm2 Pulmonic Valve V21.10m/s Conclusion Technically good study. Sinus rhythm. Normal chamber sizes. Normal valves. EF of 60% with normal RV function. Mild TR. Pacing lead noted in RV and RA. No intracardiac masses thrombi or vegetations discernible.
--- NOTE | 2024-07-22 20:11 | DVHPN2 ---
Progress Note - Dictate Date Seen: Jul 22, 2024 Medical Necessity Reason Pt with a Central, PICC or Fol: No Subjective Patient is seen and evaluated. Patient evaluated by Cardiology and pacemaker he is in place and surrounding erythema appears improved. Family is at bedside. vital signs Vital Sign Date Time Temp Pulse Resp B/P (MAP) Pulse Ox O2 Delivery O2 Flow Rate FiO2 07/22/24 17:19 98.0 65 18 98/70 (79) 97 98.0 07/22/24 08:00 Room Air* 0 21 Total Intake and Output 07/21/24 07/21/24 07/22/24 15:00 23:00 07:00 Intake Total 300 ml 100 ml 20 ml Balance 300 ml 100 ml 20 ml medications Current Medications Medications Dose Ordered Sig/Leticia Route Start Time Stop Time Status Last Admin Dose Admin Docusate Sodium 100 mg BIDPRN PRN PO 07/18/24 20:30 Acetaminophen 650 mg Q6HP PRN PO 07/18/24 20:30 Acetaminophen/ Hydrocodone Bitart 1 tab Q6HPRN PRN PO 07/18/24 20:30 Morphine Sulfate 2 mg Q4HPRN PRN IV 07/18/24 20:30 07/22/24 15:40 2 MG Nitroglycerin 0.4 mg Q5MINP PRN SL 07/18/24 20:30 Morphine Sulfate 2 mg Q30M PRN IV 07/18/24 20:30 Famotidine 20 mg Q12HR IV 07/18/24 22:00 07/22/24 10:54 20 MG Diphenhydramine HCl 25 mg Q6HP PRN IV 07/18/24 20:30 07/22/24 17:21 25 MG Vancomycin HCl 250 ml @ 250 mls/hr DAILY IV 07/20/24 10:00 UNV Naproxen 250 mg Q8HP PRN PO 07/20/24 09:30 Pantoprazole Sodium 40 mg DAILY@1000 PO 07/20/24 10:00 07/22/24 09:50 40 MG Vancomycin HCl 0 ml @ 0 mls/hr UD IV 07/20/24 10:15 Ceftriaxone Sodium 50 ml @ 100 mls/hr DAILY@09 IV 07/21/24 09:00 07/22/24 09:35 100 MLS/HR Vancomycin HCl 750 mg/Dextrose 100 ml @ 100 mls/hr Q12H IV 07/21/24 18:00 07/22/24 19:58 100 MLS/HR Hydrocortisone 1 applic BID TOP 07/21/24 13:00 07/22/24 15:56 1 APPLIC Neomycin/ Polymyxin/ Bacitracin 1 applic DAILY TOP 07/22/24 16:00 07/22/24 15:56 1 APPLIC objective Alert awake oriented x3. HEENT neck supple no JVD. Heart regular rate and rhythm S1-S2. Without murmurs. Lungs fair air movement without rales wheezes. Abdomen soft positive bowel sounds. Extremities no edema. Left upper chest pacemaker insertion site appears clean and dry and without any drainage. Contact dermatitis with a erythema noted. laboratory and microbiology Laboratory Tests 07/22/24 05:26 Test 07/22/24 05:26 Range/Units Serum Glucose 90 74-106 mg/dL Assessment/Plan Plan is to continue current antibiotics as she is on. Discussed care plan with the glass engraver as well as Infectious Disease over the phone. Given the cultures so far have been negative plan is to continue IV antibiotics for another 48 hours in hospital and to consider discharge home on Saturday with the oral antibiotics per recommendations. Meantime continue current care. Discussed with the patient regarding care plan at bedside. Problems(with codes): (1) Cellulitis of chest wall (2) Musculoskeletal pain (3) Allergic reaction Dietary Evaluation Review Comments: Continue current diet, monitor PO intake to meet 75% of her needs Expected Outcomes/Goals: Meet 75% of her needs, maintain weight. Plan discussed with: Patient, Other ZENY CURRY MD Jul 22, 2024 20:11
[2024-07-23] VITALS (9 sets, daily range): BP systolic 98–121; BP diastolic 61–88; PULSE 65–89; RESP 11–20; TEMP 97.8–98.2; O2SAT 90–100
[2024-07-23 06:39] LABS: Basophils # (auto) 0 10 ^3/uL (0-0.2); Basophils % (auto) 0.7 % (0.0-2.0); Eosinophils # (auto) 0.3 10 ^3/uL (0-0.8); Hematocrit 43.4 % (36.0-46.0); Hemoglobin 15.1 g/dL (12.2-16.2); Lymphocytes # (auto) 1.6 10 ^3/uL (0.4-5.4); Lymphocytes % (auto) 25.4 % (10.0-50.0); Mean Corpuscular Hemoglobin 32.4 pg (28.0-32.0); Mean Corpuscular Hgb Conc. 34.7 g/dL (32.0-36.0); Mean Corpuscular Volume 93.4 fL (80.0-100.0); Monocytes # (auto) 0.9 10 ^3/uL (0-1.3); Monocytes % (auto) 13.3 % (0.0-12.0); Neutrophils # (auto) 3.6 10 ^3/uL (1.6-8.6); Neutrophils % (auto) 55.6 % (37.0-80.0); Nucleated Red Blood Cells % 0.1 %; Platelet Count (auto) 244 10^3/uL (140-450); Red Blood Cells 4.65 10^6/uL (4.0-5.20); Red Cell Distribution Width 12.3 % (11.8-14.3); White Blood Cell 6.5 10^3/uL (4.4-10.8)
[2024-07-23 06:53] LABS: Alanine Aminotransferase 25 U/L (7-40); Alkaline Phosphatase 93 U/L (46-116); Anion Gap 5 (5-15); BUN/Creatinine Ratio 10.6 (10.0-20.0); Blood Urea Nitrogen 11 mg/dL (9-23); Carbon Dioxide 28 mmol/L (20-31); Chloride 104 mmol/L (98-107); Potassium 4.4 mmol/L (3.5-5.1); Sodium 137 mmol/L (136-145)
[2024-07-23 06:54] LABS: Albumin 4.5 g/dL (3.2-4.8); Aspartate Aminotransferase 29 U/L (13-40); Bilirubin, Total 0.6 mg/dL (0.2-1.0); Total Protein 7.3 g/dL (5.7-8.2)
[2024-07-23 06:55] LABS: Calcium 10.5 mg/dL (8.7-10.4)
[2024-07-23 06:57] LABS: Glucose 96 mg/dL (74-106)
[2024-07-23] MEDS ORDERED: fentaNYL CITRATE 100 MCG/2 ML VL ONE (12:00)
[2024-07-23] MEDS ORDERED: PROPOFOL 10 MG/ML 20 ML IV ONE (12:00)
[2024-07-23] MEDS ORDERED: MEPERIDINE HCL (25 MG/ML) 1ML VIAL ONE (12:52)
[2024-07-23] MEDS: ACETAMINOPHEN IV 1000 MG/100ML (10MG/ML) IV PRN (13:24)
--- NOTE | 2024-07-23 13:28 | DVHOP2 ---
Operative Report - 2 Report Details Date: 07/23/24 Preop Diagnosis: INFECTED PACEMAKER POCKET. Postop Diagnosis: Successful permanent pacemaker extraction Surgeon: Chino Garcia MD Anesthesiologist: Dr. Farah Anesthesia: General, Mac, Local Consent: The patient was informed of the risks and benefits of the procedure. These inc lude but are not limited to complications of anesthesia, postoperative infection, incomplete relief of symptoms, recurrence of symptoms, damage to blood vessels, nerves and tendons, deep venous thrombosis, pulmonary embolism and possible need for repeat surgery in the future. Complications: None Estimated Blood Loss: 2 cc Findings: Inflamed superficial pacer pocket Indications for Surgery: Cellulitis and inflammation Name of Procedure Performed Debridement of subdermal and superficial subcutaneous tissue overlying pacemaker pocket Procedure Details Procedure Details: Patient was taken to the operating room. The patient was prepped and draped in the usual fashion. Subsequent to draping and under general anesthesia we used a Bovie and accessed the pacemaker generator pocket. We removed the leads after applying the and screen device and liberating the leads from the 0 Ethibond previously placed. We removed all ties leads and generator . We cultured the pocket and subsequently flushed it with antibiotic solution. We then packed the pocket with 1 in 3M gauze. We used four by fours and an Jason wrap to keep the 4x4s and place. No tape or adhesives were used. No complications. Patient tolerated procedure well Specimen: Pacemaker and leads were removed in their entirety. Condition Good Disposition Still a Patient Date of Service: Jul 23, 2024 Billing Provider: CHINO GARCIA Sr., MD Cardiology Common Codes: 51465-[id number](High Card. Pacer Implants/Gen [id number]/Replace TTVPM/PACER ( pacemaker generator and leads were extracted. Debridement of pocket.) CHINO GARCIA Sr., MD Jul 23, 2024 13:28
[2024-07-23] MEDS: MEPERIDINE HCL (25 MG/ML) 1ML VIAL IV PRN (13:30)
[2024-07-23] MEDS: HYDROmorphone HCL 2 MG/ML VL/or syr IV PRN (13:40)
[2024-07-23] MEDS: fentaNYL CITRATE 100 MCG/2 ML VL IV PRN (14:10)
[2024-07-23] MEDS: diphenhdrAMINE HCL 50 MG/1 ML VL ONE (14:26)
[2024-07-23] MEDS: ACETAMINOPHEN IV 100 ML IV ONE (14:27)
[2024-07-23] MEDS: LIDOCAINE 2%HCL (LOCAL ANESTH.) INJ 20ML MDV ONE (14:27)
[2024-07-23] MEDS: VANCOMYCIN HCL 1000 MG VL ONE (14:27)
[2024-07-23] MEDS: MEPERIDINE HCL (25 MG/ML) 1ML VIAL ONE (14:27)
[2024-07-23] MEDS: fentaNYL CITRATE 100 MCG/2 ML VL IV ONE (14:30)
[2024-07-23] MEDS: MORPHINE SULFATE 4 MG/ML SYR/VIAL IV PRN (19:42)
--- NOTE | 2024-07-23 20:22 | DVHPN2 ---
Consult Progress Note Date Seen: Jul 22, 2024 Subjective Patient reports: Feels better (no fever or chills, ongoing tenderness and concerns for infection) Objective vital signs Vital Sign Date Time Temp Pulse Resp B/P (MAP) Pulse Ox O2 Delivery O2 Flow Rate FiO2 07/23/24 19:42 74 18 111/67 07/23/24 17:24 98.1 98 98.1 07/23/24 13:20 Nasal Cannula 2.0 07/23/24 13:20 100 Total Intake and Output 07/22/24 07/22/24 07/23/24 15:00 23:00 07:00 Intake Total 105 ml 500 ml Output Total 250 ml Balance 105 ml 250 ml medications Current Medications Medications Dose Ordered Sig/Leticia Route Start Time Stop Time Status Last Admin Dose Admin Docusate Sodium 100 mg BIDPRN PRN PO 07/18/24 20:30 Acetaminophen 650 mg Q6HP PRN PO 07/18/24 20:30 Acetaminophen/ Hydrocodone Bitart 1 tab Q6HPRN PRN PO 07/18/24 20:30 Nitroglycerin 0.4 mg Q5MINP PRN SL 07/18/24 20:30 Morphine Sulfate 2 mg Q30M PRN IV 07/18/24 20:30 Famotidine 20 mg Q12HR IV 07/18/24 22:00 07/23/24 10:00 20 MG Diphenhydramine HCl 25 mg Q6HP PRN IV 07/18/24 20:30 07/23/24 19:48 25 MG Vancomycin HCl 250 ml @ 250 mls/hr DAILY IV 07/20/24 10:00 UNV Naproxen 250 mg Q8HP PRN PO 07/20/24 09:30 Pantoprazole Sodium 40 mg DAILY@1000 PO 07/20/24 10:00 07/22/24 09:50 40 MG Vancomycin HCl 0 ml @ 0 mls/hr UD IV 07/20/24 10:15 Ceftriaxone Sodium 50 ml @ 100 mls/hr DAILY@09 IV 07/21/24 09:00 07/23/24 11:10 100 MLS/HR Vancomycin HCl 750 mg/Dextrose 100 ml @ 100 mls/hr Q12H IV 07/21/24 18:00 07/23/24 18:09 100 MLS/HR Hydrocortisone 1 applic BID TOP 07/21/24 13:00 07/23/24 10:00 1 APPLIC Neomycin/ Polymyxin/ Bacitracin 1 applic DAILY TOP 07/22/24 16:00 07/23/24 10:00 1 APPLIC Morphine Sulfate 4 mg Q4HPRN PRN IV 07/23/24 17:00 07/23/24 19:42 4 MG (1) Gastrocnemius tendon rupture (2) Postoperative nausea (3) Cellulitis of chest wall (4) Allergic reaction (5) Chest pain (6) Musculoskeletal pain Plan/Recommendation ASSESSMENT AND PLAN: ID Problem List: - Allergic reaction to adhesive tape - Pacemaker site erythema and swelling - Recent pacemaker placement (07/15/2024) - Symptomatic bradycardia - Local cellulitis Assessment: This is a 48 y.o. female with a past medical history of symptomatic bradycardia status post recent pacemaker placement on 07/15/2024, who presents with redness, irritation, and swelling at the pacemaker site. The patient reports significant pain, redness, and swelling at the pacemaker site, potentially due to an allergic reaction to adhesive tape. She denies fevers, chills, nausea, or vomiting. There are no signs of systemic infection. Operative findings by Dr. Garcia indicate that the redness and irritation are at the subdermal and subcutaneous tissue levels. The pacemaker device itself is not involved, and there is no fluid in the pacemaker pocket. The area was irrigated intraoperatively, and operative cultures were obtained (pending results). Blood cultures are negative to date. Plan: - Continue intravenous vancomycin and ceftriaxone for empiric antibiotic coverage. - Monitor operative and blood culture results; adjust antibiotics accordingly. - Anticipate transition to oral antibiotics if cultures remain negative and clinical improvement is observed. - Provide pain management for pacemaker site discomfort. - Educate the patient on wound care and signs of infection. - Follow up with cardiology for pacemaker site evaluation. - Arrange outpatient follow-up upon discharge planning. Isolation Precautions: standard Assessment and plan were discussed with the patient as written above. Plan is subject to change pending incorporation of new incoming information/diagnostics. Updates may be added as addendum at the bottom of this note. Thank you for this consult. Infectious Disease will continue to follow. Please contact us for any questions or concerns. laboratory and microbiology Laboratory Tests 07/23/24 05:23 Test 07/23/24 05:23 Range/Units Serum Glucose 96 74-106 mg/dL Problem List/Assessment/Plan Problems(with codes): (1) Cellulitis of chest wall (2) Allergic reaction (3) Chest pain (4) Musculoskeletal pain (5) Gastrocnemius tendon rupture (6) Postoperative nausea Problem List/Assessment/Plan (1) Gastrocnemius tendon rupture (2) Postoperative nausea (3) Cellulitis of chest wall (4) Allergic reaction (5) Chest pain (6) Musculoskeletal pain Plan/Recommendation ASSESSMENT AND PLAN: ID Problem List: - Allergic reaction to adhesive tape - Pacemaker site erythema and swelling - Recent pacemaker placement (07/15/2024) - Symptomatic bradycardia - Local cellulitis Assessment: This is a 48 y.o. female with a past medical history of symptomatic bradycardia status post recent pacemaker placement on 07/15/2024, who presents with redness, irritation, and swelling at the pacemaker site. The patient reports significant pain, redness, and swelling at the pacemaker site, potentially due to an allergic reaction to adhesive tape. She denies fevers, chills, nausea, or vomiting. There are no signs of systemic infection. Operative findings by Dr. Garcia indicate that the redness and irritation are at the subdermal and subcutaneous tissue levels. The pacemaker device itself is not involved, and there is no fluid in the pacemaker pocket. The area was irrigated intraoperatively, and operative cultures were obtained (pending results). Blood cultures are negative to date. 07/21: pmm site continues to very tender and painful Plan: - Continue intravenous vancomycin and ceftriaxone for empiric antibiotic coverage. - Monitor operative and blood culture results; adjust antibiotics accordingly. - Anticipate transition to oral antibiotics if cultures remain negative and clinical improvement is observed. - Provide pain management for pacemaker site discomfort. - Educate the patient on wound care and signs of infection. - Follow up with cardiology for pacemaker site evaluation. - Arrange outpatient follow-up upon discharge planning. Isolation Precautions: standard Assessment and plan were discussed with the patient as written above. Plan is subject to change pending incorporation of new incoming information/diagnostics. Updates may be added as addendum at the bottom of this note. Thank you for this consult. Infectious Disease will continue to follow. Please contact us for any questions or concerns. Plan discussed with: Patient Dietary Evaluation Review Comments: Continue current diet, monitor PO intake to meet 75% of her needs Expected Outcomes/Goals: Meet 75% of her needs, maintain weight. ANILA BUENROSTRO MD Jul 23, 2024 20:22
--- NOTE | 2024-07-23 21:53 | DVHPN2 ---
Progress Note - Dictate Date Seen: Jul 23, 2024 Medical Necessity Reason Pt with a Central, PICC or Fol: No Subjective Patient is seen and evaluated. Patient evaluated by Cardiology and pacemaker is removed today due to worsening infection in the chest wall. vital signs Vital Sign Date Time Temp Pulse Resp B/P (MAP) Pulse Ox O2 Delivery O2 Flow Rate FiO2 07/23/24 21:00 97.8 65 16 107/61 (76) 90 97.8 07/23/24 13:20 Nasal Cannula 2.0 07/23/24 13:20 100 Total Intake and Output 07/22/24 07/22/24 07/23/24 15:00 23:00 07:00 Intake Total 105 ml 500 ml Output Total 250 ml Balance 105 ml 250 ml medications Current Medications Medications Dose Ordered Sig/Leticia Route Start Time Stop Time Status Last Admin Dose Admin Docusate Sodium 100 mg BIDPRN PRN PO 07/18/24 20:30 Acetaminophen 650 mg Q6HP PRN PO 07/18/24 20:30 Acetaminophen/ Hydrocodone Bitart 1 tab Q6HPRN PRN PO 07/18/24 20:30 Nitroglycerin 0.4 mg Q5MINP PRN SL 07/18/24 20:30 Morphine Sulfate 2 mg Q30M PRN IV 07/18/24 20:30 Famotidine 20 mg Q12HR IV 07/18/24 22:00 07/23/24 10:00 20 MG Diphenhydramine HCl 25 mg Q6HP PRN IV 07/18/24 20:30 07/23/24 19:48 25 MG Vancomycin HCl 250 ml @ 250 mls/hr DAILY IV 07/20/24 10:00 UNV Naproxen 250 mg Q8HP PRN PO 07/20/24 09:30 Pantoprazole Sodium 40 mg DAILY@1000 PO 07/20/24 10:00 07/22/24 09:50 40 MG Vancomycin HCl 0 ml @ 0 mls/hr UD IV 07/20/24 10:15 Ceftriaxone Sodium 50 ml @ 100 mls/hr DAILY@09 IV 07/21/24 09:00 07/23/24 11:10 100 MLS/HR Vancomycin HCl 750 mg/Dextrose 100 ml @ 100 mls/hr Q12H IV 07/21/24 18:00 07/23/24 18:09 100 MLS/HR Hydrocortisone 1 applic BID TOP 07/21/24 13:00 07/23/24 10:00 1 APPLIC Neomycin/ Polymyxin/ Bacitracin 1 applic DAILY TOP 07/22/24 16:00 07/23/24 10:00 1 APPLIC Morphine Sulfate 4 mg Q4HPRN PRN IV 07/23/24 17:00 07/23/24 19:42 4 MG objective Alert awake oriented x3. HEENT neck supple no JVD. Heart regular rate and rhythm S1-S2. Without murmurs. Lungs fair air movement without rales wheezes. Abdomen soft positive bowel sounds. Extremities no edema. Left upper chest pacemaker insertion site appears clean and dry and without any drainage. Contact dermatitis with a erythema noted. laboratory and microbiology Laboratory Tests 07/23/24 05:23 Test 07/23/24 05:23 Range/Units Serum Glucose 96 74-106 mg/dL Assessment/Plan Plan is to continue current antibiotics as she is on. Discussed care plan with the microstrategy architect and patient agrees removed. Given the patient's chest discomfort with persistent erythema edema isn't recommended name two weeks of IV antibiotics. Therefore I will order a PICC line. We will arrange for 2 g of IV Rocephin daily for three weeks. Discussed with the patient and she was agreeable to this plan of care. Continue wound care. Home health will be arranged. Further clinical management per clinical course. Problems(with codes): (1) Musculoskeletal pain (2) Allergic reaction (3) Cellulitis of chest wall Dietary Evaluation Review Comments: Continue current diet, monitor PO intake to meet 75% of her needs Expected Outcomes/Goals: Meet 75% of her needs, maintain weight. Plan discussed with: Patient, Other ZENY CURRY MD Jul 23, 2024 21:53
--- NOTE | 2024-07-23 22:25 | DVHPN2 ---
Consult Progress Note Date Seen: Jul 23, 2024 Subjective Patient reports: Other (underwent removal of the pacemaker and leads and is continued to have pain at site of where pacemaker was , the area is red and continues to be sore ) Objective vital signs Vital Sign Date Time Temp Pulse Resp B/P (MAP) Pulse Ox O2 Delivery O2 Flow Rate FiO2 07/23/24 21:00 97.8 65 16 107/61 (76) 90 97.8 07/23/24 13:20 Nasal Cannula 2.0 07/23/24 13:20 100 Total Intake and Output 07/22/24 07/22/24 07/23/24 15:00 23:00 07:00 Intake Total 105 ml 500 ml Output Total 250 ml Balance 105 ml 250 ml medications Current Medications Medications Dose Ordered Sig/Leticia Route Start Time Stop Time Status Last Admin Dose Admin Docusate Sodium 100 mg BIDPRN PRN PO 07/18/24 20:30 Acetaminophen 650 mg Q6HP PRN PO 07/18/24 20:30 Acetaminophen/ Hydrocodone Bitart 1 tab Q6HPRN PRN PO 07/18/24 20:30 Nitroglycerin 0.4 mg Q5MINP PRN SL 07/18/24 20:30 Morphine Sulfate 2 mg Q30M PRN IV 07/18/24 20:30 Famotidine 20 mg Q12HR IV 07/18/24 22:00 07/23/24 22:15 20 MG Diphenhydramine HCl 25 mg Q6HP PRN IV 07/18/24 20:30 07/23/24 19:48 25 MG Vancomycin HCl 250 ml @ 250 mls/hr DAILY IV 07/20/24 10:00 UNV Naproxen 250 mg Q8HP PRN PO 07/20/24 09:30 Pantoprazole Sodium 40 mg DAILY@1000 PO 07/20/24 10:00 07/22/24 09:50 40 MG Vancomycin HCl 0 ml @ 0 mls/hr UD IV 07/20/24 10:15 Ceftriaxone Sodium 50 ml @ 100 mls/hr DAILY@09 IV 07/21/24 09:00 07/23/24 11:10 100 MLS/HR Vancomycin HCl 750 mg/Dextrose 100 ml @ 100 mls/hr Q12H IV 07/21/24 18:00 07/23/24 18:09 100 MLS/HR Hydrocortisone 1 applic BID TOP 07/21/24 13:00 07/23/24 22:15 1 APPLIC Neomycin/ Polymyxin/ Bacitracin 1 applic DAILY TOP 07/22/24 16:00 07/23/24 10:00 1 APPLIC Morphine Sulfate 4 mg Q4HPRN PRN IV 07/23/24 17:00 07/23/24 19:42 4 MG Physical Exam: General: NAD Neck: Supple. No masses. HEENT: PERRL. Normal lids and conjunctiva. Moist mucous membranes. Oropharynx without lesions, exudates, or excessive erythema. Normal appearance of the external aspects of the nose and ears. Heart: Regular rhythm, normal rate. No murmur. No lower extremity edema. Lungs: Normal respiratory effort. Clear to auscultation bilaterally. No wheezes. No crackles. Abdomen: Soft. Non-tender. Non-distended. No masses or abdominal hernia. Msk: No digital cyanosis. Normal strength and tone in all 4 limbs. Skin: Warm and dry. Redness, irritation, and swelling at pacemaker site. Neuro: Alert. No facial droop or slurred speech. Extra-ocular movements intact. Sensation intact to soft touch in all 4 limbs. Psych: Appropriate mood. Full affect. Oriented to person, place, time, and situation. laboratory and microbiology Laboratory Tests 07/23/24 05:23 Test 07/23/24 05:23 Range/Units Serum Glucose 96 74-106 mg/dL Problem List/Assessment/Plan Problems(with codes): (1) Postoperative nausea (2) Status post tendon repair (3) Gastrocnemius tendon rupture (4) Musculoskeletal pain (5) Chest pain (6) Allergic reaction (7) Cellulitis of chest wall Problem List/Assessment/Plan (1) Gastrocnemius tendon rupture (2) Postoperative nausea (3) Cellulitis of chest wall (4) Allergic reaction (5) Chest pain (6) Musculoskeletal pain Plan/Recommendation ASSESSMENT AND PLAN: ID Problem List: - Allergic reaction to adhesive tape - Pacemaker site erythema and swelling - Recent pacemaker placement (07/15/2024) - Symptomatic bradycardia - Local cellulitis Assessment: This is a 48 y.o. female with a past medical history of symptomatic bradycardia status post recent pacemaker placement on 07/15/2024, who presents with redness, irritation, and swelling at the pacemaker site. The patient reports significant pain, redness, and swelling at the pacemaker site, potentially due to an allergic reaction to adhesive tape. She denies fevers, chills, nausea, or vomiting. There are no signs of systemic infection. Operative findings by Dr. Garcia indicate that the redness and irritation are at the subdermal and subcutaneous tissue levels. The pacemaker device itself is not involved, and there is no fluid in the pacemaker pocket. The area was irrigated intraoperatively, and operative cultures were obtained (pending results). Blood cultures are negative to date. 07/21: pmm site continues to very tender and painful 07/23: despite having no signs of pacemaker site infection or pocket infection there remains concern for persistent subq infection, due to this Agree with plan to proceed IV antibiotics Plan: - Agree with Piccline placement and IV ceftriaxone 2 grams daily fro 3 weeks - follow up with infectious disease in 2-3 weeks - follow up on blood and operative cultures - Continue intravenous vancomycin and ceftriaxone for empiric antibiotic coverage while in-patient Isolation Precautions: standard Assessment and plan were discussed with the patient as written above. Plan is subject to change pending incorporation of new incoming information/diagnostics. Updates may be added as addendum at the bottom of this note. Thank you for this consult. Infectious Disease will continue to follow. Please contact us for any questions or concerns. Plan discussed with: Other Dietary Evaluation Review Comments: Continue current diet, monitor PO intake to meet 75% of her needs Expected Outcomes/Goals: Meet 75% of her needs, maintain weight. ANILA BUENROSTRO MD Jul 23, 2024 22:25
[2024-07-24] VITALS (8 sets, daily range): BP systolic 89–125; BP diastolic 53–91; PULSE 66–85; RESP 18–20; TEMP 97.5–98.1; O2SAT 95–100
[2024-07-24 06:33] LABS: Basophils # (auto) 0 10 ^3/uL (0-0.2); Basophils % (auto) 0.1 % (0.0-2.0); Eosinophils # (auto) 0 10 ^3/uL (0-0.8); Eosinophils % (auto) 0.2 % (0.0-7.0); Hemoglobin 13.4 g/dL (12.2-16.2); Lymphocytes # (auto) 1.3 10 ^3/uL (0.4-5.4); Lymphocytes % (auto) 15.2 % (10.0-50.0); Mean Corpuscular Hgb Conc. 34.4 g/dL (32.0-36.0); Mean Corpuscular Volume 93.2 fL (80.0-100.0); Monocytes # (auto) 0.8 10 ^3/uL (0-1.3); Monocytes % (auto) 9.2 % (0.0-12.0); Neutrophils # (auto) 6.3 10 ^3/uL (1.6-8.6); Neutrophils % (auto) 75.3 % (37.0-80.0); Nucleated Red Blood Cells % 0.1 %; Platelet Count (auto) 236 10^3/uL (140-450); Red Blood Cells 4.18 10^6/uL (4.0-5.20); Red Cell Distribution Width 12.1 % (11.8-14.3); White Blood Cell 8.4 10^3/uL (4.4-10.8)
[2024-07-24] MEDS: METOCLOPRAMIDE HCL 5MG/ml INJ 2ml VIAL IV ONE (07:59)
[2024-07-24] MEDS: MORPHINE SULFATE 4 MG/ML SYR/VIAL IV ONE (09:05)
--- NOTE | 2024-07-24 14:00 | DVHDS2 ---
Discharge Summary Date of Admission Jul 18, 2024 at 20:24 Date of Discharge: Jul 24, 2024 Labs/Diagnostic Data: Laboratory Results Test 07/24/24 05:55 07/23/24 05:23 07/22/24 20:43 07/22/24 17:00 White Blood Count 8.4 10^3/uL (4.4-10.8) Red Blood Count 4.18 10^6/uL (4.0-5.20) Hemoglobin 13.4 g/dL (12.2-16.2) Hematocrit 39.0 % (36.0-46.0) Mean Corpuscular Volume 93.2 fL (80.0-100.0) Mean Corpuscular Hemoglobin 32.0 pg (28.0-32.0) Mean Corpuscular Hemoglobin Concent 34.4 g/dL (32.0-36.0) Red Cell Distribution Width 12.1 % (11.8-14.3) Platelet Count 236 10^3/uL (140-450) Mean Platelet Volume 9.6 fL (6.9-10.8) Neutrophils (%) (Auto) 75.3 % (37.0-80.0) Lymphocytes (%) (Auto) 15.2 % (10.0-50.0) Monocytes (%) (Auto) 9.2 % (0.0-12.0) Eosinophils (%) (Auto) 0.2 % (0.0-7.0) Basophils (%) (Auto) 0.1 % (0.0-2.0) Neutrophils # (Auto) 6.3 10 ^3/uL (1.6-8.6) Lymphocytes # (Auto) 1.3 10 ^3/uL (0.4-5.4) Monocytes # (Auto) 0.8 10 ^3/uL (0-1.3) Eosinophils # (Auto) 0 10 ^3/uL (0-0.8) Basophils # (Auto) 0 10 ^3/uL (0-0.2) Nucleated Red Blood Cells 0.1 % Creatinine 0.91 mg/dL (0.550-1.02) Glomerular Filtration Rate Calc 78 mL/min (>90) Sodium Level 137 mmol/L (136-145) Potassium Level 4.4 mmol/L (3.5-5.1) Chloride Level 104 mmol/L (98-107) Carbon Dioxide Level 28 mmol/L (20-31) Anion Gap 5 (5-15) Blood Urea Nitrogen 11 mg/dL (9-23) BUN/Creatinine Ratio 10.6 (10.0-20.0) Serum Glucose 96 mg/dL (74-106) Calcium Level 10.5 mg/dL (8.7-10.4) Total Bilirubin 0.6 mg/dL (0.2-1.0) Aspartate Amino Transferase (AST) 29 U/L (13-40) Alanine Aminotransferase (ALT) 25 U/L (7-40) Alkaline Phosphatase 93 U/L (46-116) Total Protein 7.3 g/dL (5.7-8.2) Albumin 4.5 g/dL (3.2-4.8) Lactic Acid Level 0.7 mmol/L (0.4-2.0) Vancomycin Level Trough 12.4 ug/mL (5-10) Test 07/22/24 05:26 07/18/24 18:13 07/18/24 15:10 07/18/24 14:35 C-Reactive Protein High Sensitivity 0.40 mg/dL (<1.0) Troponin I High Sensitivity 4 ng/L (</=34) Magnesium Level 1.7 mg/dL (1.6-2.6) B-Type Natriuretic Peptide 20.22 pg/mL (0-100) Urine Color Light-yellow (Yellow) Urine Clarity Clear (Clear) Urine pH 7.5 (5.0-9.0) Urine Specific [place] 1.020 (1.001-1.035) Urine Protein Negative (Negative) Urine Ketones Negative (Negative) Urine Blood Negative /uL (Negative) Urine Nitrite Negative (Negative) Urine Bilirubin Negative (Negative) Urine Urobilinogen Normal mg/dL (Negative) Urine Leukocyte Esterase Negative /uL (Negative) Urine RBC 1 /hpf (0 - 4) Urine WBC 1 /hpf (0 - 5) Urine Squamous Epithelial Cells Few /hpf (<5) Urine Bacteria None seen /hpf (None Seen) Urine Mucus Few (None Seen) Urine Glucose Normal mg/dL (Normal) Other Laboratory Tests 07/24/24 05:55 07/23/24 05:23 Brief Hx & Hospital Course: Patient is not discharged as planned due to unable to arrange home health and home IV antibiotics not yet arranged. Therefore her care is transferred to incoming hospitalist who will be making further discharge planning as deemed appropriate along with the consultants involved in her care. Otherwise patient while in the hospital remained clinically stable. Condition at Discharge: Good Final Diagnosis/Problems List Successful permanent pacemaker extraction, cellulitis chest wall Discharge Disposition: Home with Health Services Discharge Instruct/Medications Diet: Consistent carbohydrate, Cardiac 2g Na,low cholest Activity: No Restrictions, As Tolerated Follow Up/Referral: cardiology next week. ID doctor Darryn Guerrier after 2 weeks of iv antibiotics Medications: home meds AND rocephin iv for few weeks Discharge Statement: "Patient was advised to return to the ER or call 911 if any headaches, dizziness, shortness of breath, chest pain, abdominal pain, bleeding, fevers, or worsening of medical condition. Patient was counseled about treatment plan, medications, possible side effects, patientverbalized understanding. All questions were answered to the best of my ability. This discharge took greater then 30 minutes in planning, reviewing documentation, counseling the patient, and discussing with other team members." ASSESSMENT ASSESSMENT Assessment Successful permanent pacemaker extraction, cellulitis chest wall ZENY CURRY MD Jul 24, 2024 14:00
[2024-07-24] MEDS ORDERED: MORP10SO PO (15:06)
[2024-07-24] MEDS ORDERED: NALO4SPR2 (15:06)
[2024-07-24] MEDS: VANCOMYCIN 750MG VIAL 750 MG in D5W 5% 100 ML IV SCH (20:41)
--- NOTE | 2024-07-24 23:12 | DVHPN2 ---
Consult Progress Note Date Seen: Jul 24, 2024 Subjective Patient reports: Other (still having some irritation around pacemaker site causing her to have tenderness and pain ) Objective vital signs Vital Sign Date Time Temp Pulse Resp B/P (MAP) Pulse Ox O2 Delivery O2 Flow Rate FiO2 07/24/24 21:20 72 18 104/73 07/24/24 21:00 98.1 95 98.1 07/24/24 20:00 Room Air* 0 21 Total Intake and Output 07/23/24 07/23/24 07/24/24 15:00 23:00 07:00 Intake Total 100 ml 350 ml 700 ml Balance 100 ml 350 ml 700 ml medications Current Medications Medications Dose Ordered Sig/Leticia Route Start Time Stop Time Status Last Admin Dose Admin Docusate Sodium 100 mg BIDPRN PRN PO 07/18/24 20:30 Acetaminophen 650 mg Q6HP PRN PO 07/18/24 20:30 Acetaminophen/ Hydrocodone Bitart 1 tab Q6HPRN PRN PO 07/18/24 20:30 Nitroglycerin 0.4 mg Q5MINP PRN SL 07/18/24 20:30 Morphine Sulfate 2 mg Q30M PRN IV 07/18/24 20:30 Famotidine 20 mg Q12HR IV 07/18/24 22:00 07/24/24 20:41 20 MG Diphenhydramine HCl 25 mg Q6HP PRN IV 07/18/24 20:30 07/24/24 16:52 25 MG Vancomycin HCl 250 ml @ 250 mls/hr DAILY IV 07/20/24 10:00 UNV Naproxen 250 mg Q8HP PRN PO 07/20/24 09:30 Pantoprazole Sodium 40 mg DAILY@1000 PO 07/20/24 10:00 07/24/24 08:51 40 MG Vancomycin HCl 0 ml @ 0 mls/hr UD IV 07/20/24 10:15 Ceftriaxone Sodium 50 ml @ 100 mls/hr DAILY@09 IV 07/21/24 09:00 07/24/24 08:51 100 MLS/HR Hydrocortisone 1 applic BID TOP 07/21/24 13:00 07/24/24 21:48 1 APPLIC Neomycin/ Polymyxin/ Bacitracin 1 applic DAILY TOP 07/22/24 16:00 07/23/24 10:00 1 APPLIC Morphine Sulfate 4 mg Q4HPRN PRN IV 07/23/24 17:00 07/24/24 21:20 4 MG Vancomycin HCl 750 mg/Dextrose 100 ml @ 100 mls/hr Q12HR@0800,2000 IV 07/24/24 20:00 07/24/24 20:41 100 MLS/HR Physical Exam: General: NAD Neck: Supple. No masses. HEENT: PERRL. Normal lids and conjunctiva. Moist mucous membranes. Oropharynx without lesions, exudates, or excessive erythema. Normal appearance of the external aspects of the nose and ears. Heart: Regular rhythm, normal rate. No murmur. No lower extremity edema. Lungs: Normal respiratory effort. Clear to auscultation bilaterally. No wheezes. No crackles. Abdomen: Soft. Non-tender. Non-distended. No masses or abdominal hernia. Msk: No digital cyanosis. Normal strength and tone in all 4 limbs. Skin: Warm and dry. Redness, irritation, and swelling at pacemaker site. Neuro: Alert. No facial droop or slurred speech. Extra-ocular movements intact. Sensation intact to soft touch in all 4 limbs. Psych: Appropriate mood. Full affect. Oriented to person, place, time, and situation. laboratory and microbiology Laboratory Tests 07/24/24 05:55 07/23/24 05:23 Test 07/23/24 05:23 Range/Units Serum Glucose 96 74-106 mg/dL Problem List/Assessment/Plan Problems(with codes): (1) Cellulitis of chest wall (2) Allergic reaction (3) Chest pain (4) Musculoskeletal pain (5) Gastrocnemius tendon rupture (6) Postoperative nausea (7) Status post tendon repair Problem List/Assessment/Plan (1) Gastrocnemius tendon rupture (2) Postoperative nausea (3) Cellulitis of chest wall (4) Allergic reaction (5) Chest pain (6) Musculoskeletal pain Plan/Recommendation ASSESSMENT AND PLAN: ID Problem List: - Allergic reaction to adhesive tape - Pacemaker site erythema and swelling - Recent pacemaker placement (07/15/2024) - Symptomatic bradycardia - Local cellulitis Assessment: This is a 48 y.o. female with a past medical history of symptomatic bradycardia status post recent pacemaker placement on 07/15/2024, who presents with redness, irritation, and swelling at the pacemaker site. The patient reports significant pain, redness, and swelling at the pacemaker site, potentially due to an allergic reaction to adhesive tape. She denies fevers, chills, nausea, or vomiting. There are no signs of systemic infection. Operative findings by Dr. Garcia indicate that the redness and irritation are at the subdermal and subcutaneous tissue levels. The pacemaker device itself is not involved, and there is no fluid in the pacemaker pocket. The area was irrigated intraoperatively, and operative cultures were obtained (pending results). Blood cultures are negative to date. 07/21: pmm site continues to very tender and painful 07/23: despite having no signs of pacemaker site infection or pocket infection there remains concern for persistent subq infection, due to this Agree with plan to proceed IV antibiotics 07/24: midline in place of her arm , Cultures from pacemaker removal and leads are not growing any organisms Plan: - Agree with Piccline placement and IV ceftriaxone 2 grams daily fro 3 weeks - follow up with infectious disease in 2-3 weeks - follow up on blood and operative cultures - Continue intravenous vancomycin and ceftriaxone for empiric antibiotic coverage while in-patient Isolation Precautions: standard Assessment and plan were discussed with the patient as written above. Plan is subject to change pending incorporation of new incoming information/diagnostics. Updates may be added as addendum at the bottom of this note. Thank you for this consult. Infectious Disease will continue to follow. Please contact us for any questions or concerns. Plan discussed with: Other Dietary Evaluation Review Comments: Continue current diet, monitor PO intake to meet 75% of her needs Expected Outcomes/Goals: Meet 75% of her needs, maintain weight. ANILA BUENROSTRO MD Jul 24, 2024 23:12
[2024-07-25] VITALS (8 sets, daily range): BP systolic 105–117; BP diastolic 61–80; PULSE 58–80; RESP 15–20; TEMP 97.8–98.4; O2SAT 95–99
--- NOTE | 2024-07-25 18:51 | DVHPN2 ---
Subjective Overnight events noted. Patient's pacemaker has been removed currently on IV antibiotics. Reviewed: Care Plan Changes from previous H/P or p: No Changes Eyes: No Pain, No Vision change, No Conjunctivae inflammation, No Eyelid inflammation, No Other, No Redness ENT: No Ear pain, No Ear discharge, No Nose pain, No Nose discharge, No Nose congestion, No Mouth pain, No Mouth swelling, No Throat pain, No Throat swelling, No Other Cardiovascular: Chest Pain; No Palpitations, No Orthopnea, No Paroxysmal Noc. Dyspnea, No Edema, No Lt Headedness, No Other Respiratory: No Cough, No Dry, No Shortness of breath, No SOB with excertion, No Wheezing, No Hemoptysis, No Pleuritic Pain, No Sputum, No Other Gastrointestinal: No Nausea, No Vomiting, No Abdominal Pain, No Diarrhea, No Constipation, No Melena, No Hematochezia, No Other Genitourinary: No Dysuria, No Frequency, No Incontinence, No Hematuria, No Retention, No Other Musculoskeletal: No other, No neck pain, No shoulder pain, No arm pain, No back pain, No hand pain, No leg pain, No foot pain Skin: Rash; No Lesions, No Jaundice, No Bruising, No Other Objective Vitals Vital Signs Date Time Temp Pulse Resp B/P (MAP) Pulse Ox O2 Delivery O2 Flow Rate FiO2 07/25/24 17:19 72 16 108/64 07/25/24 17:00 98.4 99 98.4 07/25/24 08:05 Room Air* 0 21 Intake/Output Intake and Output 07/25/24 07:00 Intake Total 1400 ml Balance 1400 ml Intake Oral 1350 ml IV Total 50 ml # Voids 6 Exam HEENT pupils are reactive Neck is supple CV is S1-S2 regular rate and rhythm Respiratory bilateral clear GI positive bowel sound Extremity no edema MINE [employer]INE[employer] no motor deficit Medications Current Medications Medications Dose Ordered Sig/Leticia Route Start Time Stop Time Status Last Admin Dose Admin Docusate Sodium 100 mg BIDPRN PRN PO 07/18/24 20:30 Acetaminophen 650 mg Q6HP PRN PO 07/18/24 20:30 Acetaminophen/ Hydrocodone Bitart 1 tab Q6HPRN PRN PO 07/18/24 20:30 Nitroglycerin 0.4 mg Q5MINP PRN SL 07/18/24 20:30 Morphine Sulfate 2 mg Q30M PRN IV 07/18/24 20:30 Famotidine 20 mg Q12HR IV 07/18/24 22:00 07/24/24 20:41 20 MG Diphenhydramine HCl 25 mg Q6HP PRN IV 07/18/24 20:30 07/25/24 12:32 25 MG Vancomycin HCl 250 ml @ 250 mls/hr DAILY IV 07/20/24 10:00 UNV Naproxen 250 mg Q8HP PRN PO 07/20/24 09:30 Pantoprazole Sodium 40 mg DAILY@1000 PO 07/20/24 10:00 07/25/24 11:15 40 MG Vancomycin HCl 0 ml @ 0 mls/hr UD IV 07/20/24 10:15 Ceftriaxone Sodium 50 ml @ 100 mls/hr DAILY@09 IV 07/21/24 09:00 07/25/24 11:15 100 MLS/HR Hydrocortisone 1 applic BID TOP 07/21/24 13:00 07/24/24 21:48 1 APPLIC Neomycin/ Polymyxin/ Bacitracin 1 applic DAILY TOP 07/22/24 16:00 07/23/24 10:00 1 APPLIC Morphine Sulfate 4 mg Q4HPRN PRN IV 07/23/24 17:00 07/25/24 16:49 4 MG Vancomycin HCl 750 mg/Dextrose 100 ml @ 100 mls/hr Q12HR@0800,2000 IV 07/24/24 20:00 07/25/24 08:54 100 MLS/HR Laboratory Results Laboratory Tests 07/23/24 05:23 07/24/24 05:55 Urinalysis Test 07/18/24 14:35 Urine Color Light-yellow (Yellow) Urine Clarity Clear (Clear) Urine pH 7.5 (5.0-9.0) Urine Specific [place] 1.020 (1.001-1.035) Urine Protein Negative (Negative) Urine Ketones Negative (Negative) Urine Blood Negative /uL (Negative) Urine Nitrite Negative (Negative) Urine Bilirubin Negative (Negative) Urine Urobilinogen Normal mg/dL (Negative) Urine Leukocyte Esterase Negative /uL (Negative) Urine RBC 1 /hpf (0 - 4) Urine WBC 1 /hpf (0 - 5) Urine Squamous Epithelial Cells Few /hpf (<5) Urine Bacteria None seen /hpf (None Seen) Urine Mucus Few (None Seen) Urine Glucose Normal mg/dL (Normal) Microbiology Microbiology Date/Time Source Procedure Growth Status 07/23/24 13:18 Other Gram Stain - Final Resulted 07/23/24 13:18 Other Anaerobic Culture - Preliminary Resulted 07/23/24 13:18 Other Aerobic Culture - Preliminary Resulted 07/18/24 21:55 Blood Blood Culture - Final NO GROWTH AFTER 5 DAYS OF INCUBATION. Complete Assessment/Plan Assessment/Plan 48-year-old female who had a recent pacemaker placement for sick sinus syndrome presented to the hospital with leakage wound at pacemaker site status post pacemaker extraction. 1. Pacemaker site infection status post pacemaker removal 2. History of sick sinus syndrome status post pacemaker placement, status post extraction- -IV antibiotics home health for IV antibiotics. Can follow up Infectious Disease and Cardiology recommendations. Plan discussed with: Patient, Other Date of Service: Jul 25, 2024 Billing Provider: KAVIN LOMAX MD Common Visit Codes: NOT BILLABLE KAVIN LOMAX MD Jul 25, 2024 18:51
--- NOTE | 2024-07-25 23:26 | DVHPN2 ---
Consult Progress Note Date Seen: Jul 25, 2024 Subjective Patient reports: Other (has redressed her wound and removed the backing , surgical site is minimally tender with mild signs of cellulitis or irrtation ) Objective vital signs Vital Sign Date Time Temp Pulse Resp B/P (MAP) Pulse Ox O2 Delivery O2 Flow Rate FiO2 07/25/24 21:02 65 15 106/57 07/25/24 21:00 98.2 95 98.2 07/25/24 08:05 Room Air* 0 21 Total Intake and Output 07/24/24 07/24/24 07/25/24 15:00 23:00 07:00 Intake Total 50 ml 1050 ml 300 ml Balance 50 ml 1050 ml 300 ml medications Current Medications Medications Dose Ordered Sig/Leticia Route Start Time Stop Time Status Last Admin Dose Admin Docusate Sodium 100 mg BIDPRN PRN PO 07/18/24 20:30 Acetaminophen 650 mg Q6HP PRN PO 07/18/24 20:30 Acetaminophen/ Hydrocodone Bitart 1 tab Q6HPRN PRN PO 07/18/24 20:30 Nitroglycerin 0.4 mg Q5MINP PRN SL 07/18/24 20:30 Morphine Sulfate 2 mg Q30M PRN IV 07/18/24 20:30 Famotidine 20 mg Q12HR IV 07/18/24 22:00 07/25/24 22:27 20 MG Diphenhydramine HCl 25 mg Q6HP PRN IV 07/18/24 20:30 07/25/24 21:02 25 MG Vancomycin HCl 250 ml @ 250 mls/hr DAILY IV 07/20/24 10:00 UNV Naproxen 250 mg Q8HP PRN PO 07/20/24 09:30 Pantoprazole Sodium 40 mg DAILY@1000 PO 07/20/24 10:00 07/25/24 11:15 40 MG Vancomycin HCl 0 ml @ 0 mls/hr UD IV 07/20/24 10:15 Ceftriaxone Sodium 50 ml @ 100 mls/hr DAILY@09 IV 07/21/24 09:00 07/25/24 11:15 100 MLS/HR Hydrocortisone 1 applic BID TOP 07/21/24 13:00 07/25/24 22:28 1 APPLIC Neomycin/ Polymyxin/ Bacitracin 1 applic DAILY TOP 07/22/24 16:00 07/23/24 10:00 1 APPLIC Morphine Sulfate 4 mg Q4HPRN PRN IV 07/23/24 17:00 07/25/24 21:02 4 MG Vancomycin HCl 750 mg/Dextrose 100 ml @ 100 mls/hr Q12HR@0800,2000 IV 07/24/24 20:00 07/25/24 21:03 100 MLS/HR Physical Exam: General: NAD Neck: Supple. No masses. HEENT: PERRL. Normal lids and conjunctiva. Moist mucous membranes. Oropharynx without lesions, exudates, or excessive erythema. Normal appearance of the external aspects of the nose and ears. Heart: Regular rhythm, normal rate. No murmur. No lower extremity edema. Lungs: Normal respiratory effort. Clear to auscultation bilaterally. No wheezes. No crackles. Abdomen: Soft. Non-tender. Non-distended. No masses or abdominal hernia. Msk: No digital cyanosis. Normal strength and tone in all 4 limbs. Skin: Warm and dry. Redness, irritation, and swelling at pacemaker site. Neuro: Alert. No facial droop or slurred speech. Extra-ocular movements intact. Sensation intact to soft touch in all 4 limbs. Psych: Appropriate mood. Full affect. Oriented to person, place, time, and situation. laboratory and microbiology Laboratory Tests 07/24/24 05:55 07/23/24 05:23 Test 07/23/24 05:23 Range/Units Serum Glucose 96 74-106 mg/dL Problem List/Assessment/Plan Problems(with codes): (1) Cellulitis of chest wall (2) Chest pain (3) Allergic reaction (4) Musculoskeletal pain (5) Gastrocnemius tendon rupture (6) Postoperative nausea (7) Status post tendon repair Problem List/Assessment/Plan (1) Gastrocnemius tendon rupture (2) Postoperative nausea (3) Cellulitis of chest wall (4) Allergic reaction (5) Chest pain (6) Musculoskeletal pain Plan/Recommendation ASSESSMENT AND PLAN: ID Problem List: - Allergic reaction to adhesive tape - Pacemaker site erythema and swelling - Recent pacemaker placement (07/15/2024) - Symptomatic bradycardia - Local cellulitis Assessment: This is a 48 y.o. female with a past medical history of symptomatic bradycardia status post recent pacemaker placement on 07/15/2024, who presents with redness, irritation, and swelling at the pacemaker site. The patient reports significant pain, redness, and swelling at the pacemaker site, potentially due to an allergic reaction to adhesive tape. She denies fevers, chills, nausea, or vomiting. There are no signs of systemic infection. Operative findings by Dr. Garcia indicate that the redness and irritation are at the subdermal and subcutaneous tissue levels. The pacemaker device itself is not involved, and there is no fluid in the pacemaker pocket. The area was irrigated intraoperatively, and operative cultures were obtained (pending results). Blood cultures are negative to date. 07/21: pmm site continues to very tender and painful 07/23: despite having no signs of pacemaker site infection or pocket infection there remains concern for persistent subq infection, due to this Agree with plan to proceed IV antibiotics 07/24: midline in place of her arm , Cultures from pacemaker removal and leads are not growing any organisms Plan: - Agree with Piccline placement and IV ceftriaxone 2 grams daily fro 3 weeks - follow up with infectious disease in 2-3 weeks - follow up on blood and operative cultures - Continue intravenous vancomycin and ceftriaxone for empiric antibiotic coverage while in-patient Isolation Precautions: standard Assessment and plan were discussed with the patient as written above. Plan is subject to change pending incorporation of new incoming information/diagnostics. Updates may be added as addendum at the bottom of this note. Thank you for this consult. Infectious Disease will continue to follow. Please contact us for any questions or concerns. Plan discussed with: Other Dietary Evaluation Review Comments: Continue current diet, monitor PO intake to meet 75% of her needs Expected Outcomes/Goals: Meet 75% of her needs, maintain weight. AINLA BUENROSTRO MD Jul 25, 2024 23:26
[2024-07-26] VITALS (8 sets, daily range): BP systolic 106–117; BP diastolic 73–83; PULSE 57–106; RESP 16–20; TEMP 97.8–98.2; O2SAT 95–100
[2024-07-26 06:16] LABS: Basophils # (auto) 0 10 ^3/uL (0-0.2); Basophils % (auto) 0.8 % (0.0-2.0); Eosinophils # (auto) 0.3 10 ^3/uL (0-0.8); Eosinophils % (auto) 5.8 % (0.0-7.0); Hematocrit 39.4 % (36.0-46.0); Hemoglobin 13.2 g/dL (12.2-16.2); Lymphocytes # (auto) 1.8 10 ^3/uL (0.4-5.4); Mean Corpuscular Hemoglobin 31.6 pg (28.0-32.0); Mean Corpuscular Hgb Conc. 33.6 g/dL (32.0-36.0); Monocytes % (auto) 17.8 % (0.0-12.0); Neutrophils # (auto) 2.3 10 ^3/uL (1.6-8.6); Neutrophils % (auto) 41.6 % (37.0-80.0); Platelet Count (auto) 236 10^3/uL (140-450); Red Blood Cells 4.19 10^6/uL (4.0-5.20); Red Cell Distribution Width 12.4 % (11.8-14.3); White Blood Cell 5.4 10^3/uL (4.4-10.8)
--- NOTE | 2024-07-26 10:03 | ECG ---
[facility] Test Date: 2024-07-25 Test Time: 00:11:27 Pat Name: MACRINA ZAMUDIO Department: Room: [facility]3T B Gender: F [employer]: 0 : 1975 Requested By: CHINO ESPINOZA Order Number: [id number] Reading MD: Nancie Swanson Measurements Intervals [place] Rate: 60 P: 46 TN: 165 QRS: 71 QRSD: 98 T: 37 QT: 425 QTc: 425 Interpretive Statements Sinus rhythm Electronically Signed On 07-27-2024 15:35:03 PST by Nancie Swanson Please click the below link to view image of tracing.
--- NOTE | 2024-07-26 15:51 | DVHPN2 ---
Subjective Overnight events noted. Patient's pacemaker has been removed currently on IV antibiotics. Reviewed: Care Plan Changes from previous H/P or p: No Changes Eyes: No Pain, No Vision change, No Conjunctivae inflammation, No Eyelid inflammation, No Other, No Redness ENT: No Ear pain, No Ear discharge, No Nose pain, No Nose discharge, No Nose congestion, No Mouth pain, No Mouth swelling, No Throat pain, No Throat swelling, No Other Cardiovascular: Chest Pain; No Palpitations, No Orthopnea, No Paroxysmal Noc. Dyspnea, No Edema, No Lt Headedness, No Other Respiratory: No Cough, No Dry, No Shortness of breath, No SOB with excertion, No Wheezing, No Hemoptysis, No Pleuritic Pain, No Sputum, No Other Gastrointestinal: No Nausea, No Vomiting, No Abdominal Pain, No Diarrhea, No Constipation, No Melena, No Hematochezia, No Other Genitourinary: No Dysuria, No Frequency, No Incontinence, No Hematuria, No Retention, No Other Musculoskeletal: No other, No neck pain, No shoulder pain, No arm pain, No back pain, No hand pain, No leg pain, No foot pain Skin: Rash; No Lesions, No Jaundice, No Bruising, No Other Objective Vitals Vital Signs Date Time Temp Pulse Resp B/P (MAP) Pulse Ox O2 Delivery O2 Flow Rate FiO2 07/26/24 13:00 97.9 57 20 112/74 (87) 100 97.9 07/26/24 08:00 Room Air* 0 21 Intake/Output Intake and Output 07/26/24 07:00 Intake Total 1510 ml Output Total 700 ml Balance 810 ml Intake Oral 1260 ml IV Total 250 ml Output Urine Total 700 ml # Voids 1 Exam HEENT pupils are reactive Neck is supple CV is S1-S2 regular rate and rhythm Respiratory bilateral clear GI positive bowel sound Extremity no edema [employer] no motor deficit Medications Current Medications Medications Dose Ordered Sig/Leticia Route Start Time Stop Time Status Last Admin Dose Admin Docusate Sodium 100 mg BIDPRN PRN PO 07/18/24 20:30 Acetaminophen 650 mg Q6HP PRN PO 07/18/24 20:30 Acetaminophen/ Hydrocodone Bitart 1 tab Q6HPRN PRN PO 07/18/24 20:30 Nitroglycerin 0.4 mg Q5MINP PRN SL 07/18/24 20:30 Morphine Sulfate 2 mg Q30M PRN IV 07/18/24 20:30 Famotidine 20 mg Q12HR IV 07/18/24 22:00 07/25/24 22:27 20 MG Diphenhydramine HCl 25 mg Q6HP PRN IV 07/18/24 20:30 07/26/24 09:55 25 MG Vancomycin HCl 250 ml @ 250 mls/hr DAILY IV 07/20/24 10:00 UNV Naproxen 250 mg Q8HP PRN PO 07/20/24 09:30 Pantoprazole Sodium 40 mg DAILY@1000 PO 07/20/24 10:00 07/26/24 09:50 40 MG Vancomycin HCl 0 ml @ 0 mls/hr UD IV 07/20/24 10:15 Ceftriaxone Sodium 50 ml @ 100 mls/hr DAILY@09 IV 07/21/24 09:00 07/26/24 09:50 100 MLS/HR Hydrocortisone 1 applic BID TOP 07/21/24 13:00 07/25/24 22:28 1 APPLIC Neomycin/ Polymyxin/ Bacitracin 1 applic DAILY TOP 07/22/24 16:00 07/23/24 10:00 1 APPLIC Morphine Sulfate 4 mg Q4HPRN PRN IV 07/23/24 17:00 07/26/24 09:54 4 MG Vancomycin HCl 750 mg/Dextrose 100 ml @ 100 mls/hr Q12HR@0800,2000 IV 07/24/24 20:00 07/26/24 08:34 100 MLS/HR Laboratory Results Laboratory Tests 07/23/24 05:23 07/26/24 05:45 Urinalysis Test 07/18/24 14:35 Urine Color Light-yellow (Yellow) Urine Clarity Clear (Clear) Urine pH 7.5 (5.0-9.0) Urine Specific [place] 1.020 (1.001-1.035) Urine Protein Negative (Negative) Urine Ketones Negative (Negative) Urine Blood Negative /uL (Negative) Urine Nitrite Negative (Negative) Urine Bilirubin Negative (Negative) Urine Urobilinogen Normal mg/dL (Negative) Urine Leukocyte Esterase Negative /uL (Negative) Urine RBC 1 /hpf (0 - 4) Urine WBC 1 /hpf (0 - 5) Urine Squamous Epithelial Cells Few /hpf (<5) Urine Bacteria None seen /hpf (None Seen) Urine Mucus Few (None Seen) Urine Glucose Normal mg/dL (Normal) Microbiology Microbiology Date/Time Source Procedure Growth Status 07/23/24 13:18 Other Gram Stain - Final Resulted 07/23/24 13:18 Other Anaerobic Culture - Preliminary Resulted 07/23/24 13:18 Other Aerobic Culture - Preliminary Resulted 07/18/24 21:55 Blood Blood Culture - Final NO GROWTH AFTER 5 DAYS OF INCUBATION. Complete Assessment/Plan Assessment/Plan 48-year-old female who had a recent pacemaker placement for sick sinus syndrome presented to the hospital with leakage wound at pacemaker site status post pacemaker extraction. 1. Pacemaker site infection status post pacemaker removal 2. History of sick sinus syndrome status post pacemaker placement, status post extraction- -discontinue hydrogen peroxide wound dressing as patient has a lot of pain. Wound Care team will be notified regarding alternative. -IV antibiotics home health for IV antibiotics. Can follow up Infectious Disease and Cardiology recommendations. Plan discussed with: Patient, Other My Orders Orders - KAVIN LOMAX MD Procedure Category Date Status Time Communication Order ORDERS 07/26/24 Transmitted 14:57 Date of Service: Jul 26, 2024 Billing Provider: KAVIN LOMAX MD Common Visit Codes: NOT BILLABLE KAVIN LOMAX MD Jul 26, 2024 15:50
--- NOTE | 2024-07-26 23:33 | DVHPN2 ---
Consult Progress Note Date Seen: Jul 26, 2024 Subjective Patient reports: Other (no pain at pacemaker pocket site and appears clean dry and intact ) Objective vital signs Vital Sign Date Time Temp Pulse Resp B/P (MAP) Pulse Ox O2 Delivery O2 Flow Rate FiO2 07/26/24 22:51 69 18 109/73 07/26/24 21:00 97.9 97 97.9 07/26/24 19:50 Room Air* 0 21 Total Intake and Output 07/25/24 07/25/24 07/26/24 15:00 23:00 07:00 Intake Total 150 ml 960 ml 400 ml Output Total 700 ml Balance 150 ml 260 ml 400 ml medications Current Medications Medications Dose Ordered Sig/Leticia Route Start Time Stop Time Status Last Admin Dose Admin Docusate Sodium 100 mg BIDPRN PRN PO 07/18/24 20:30 Acetaminophen 650 mg Q6HP PRN PO 07/18/24 20:30 Acetaminophen/ Hydrocodone Bitart 1 tab Q6HPRN PRN PO 07/18/24 20:30 Nitroglycerin 0.4 mg Q5MINP PRN SL 07/18/24 20:30 Morphine Sulfate 2 mg Q30M PRN IV 07/18/24 20:30 Famotidine 20 mg Q12HR IV 07/18/24 22:00 07/25/24 22:27 20 MG Diphenhydramine HCl 25 mg Q6HP PRN IV 07/18/24 20:30 07/26/24 22:49 25 MG Vancomycin HCl 250 ml @ 250 mls/hr DAILY IV 07/20/24 10:00 UNV Naproxen 250 mg Q8HP PRN PO 07/20/24 09:30 Pantoprazole Sodium 40 mg DAILY@1000 PO 07/20/24 10:00 07/26/24 09:50 40 MG Vancomycin HCl 0 ml @ 0 mls/hr UD IV 07/20/24 10:15 Ceftriaxone Sodium 50 ml @ 100 mls/hr DAILY@09 IV 07/21/24 09:00 07/26/24 09:50 100 MLS/HR Hydrocortisone 1 applic BID TOP 07/21/24 13:00 07/26/24 20:34 1 APPLIC Neomycin/ Polymyxin/ Bacitracin 1 applic DAILY TOP 07/22/24 16:00 07/26/24 10:00 1 APPLIC Morphine Sulfate 4 mg Q4HPRN PRN IV 07/23/24 17:00 07/26/24 22:51 4 MG Vancomycin HCl 750 mg/Dextrose 100 ml @ 100 mls/hr Q12HR@0800,2000 IV 07/24/24 20:00 07/26/24 20:39 100 MLS/HR Physical Exam: General: NAD Neck: Supple. No masses. HEENT: PERRL. Normal lids and conjunctiva. Moist mucous membranes. Oropharynx without lesions, exudates, or excessive erythema. Normal appearance of the external aspects of the nose and ears. Heart: Regular rhythm, normal rate. No murmur. No lower extremity edema. Lungs: Normal respiratory effort. Clear to auscultation bilaterally. No wheezes. No crackles. Abdomen: Soft. Non-tender. Non-distended. No masses or abdominal hernia. Msk: No digital cyanosis. Normal strength and tone in all 4 limbs. Skin: Warm and dry. Redness, irritation, and swelling at pacemaker site. Neuro: Alert. No facial droop or slurred speech. Extra-ocular movements intact. Sensation intact to soft touch in all 4 limbs. Psych: Appropriate mood. Full affect. Oriented to person, place, time, and situation. laboratory and microbiology Laboratory Tests 07/26/24 05:45 07/23/24 05:23 Test 07/23/24 05:23 Range/Units Serum Glucose 96 74-106 mg/dL Problem List/Assessment/Plan Problems(with codes): (1) Postoperative nausea (2) Status post tendon repair (3) Gastrocnemius tendon rupture (4) Musculoskeletal pain (5) Chest pain (6) Allergic reaction (7) Cellulitis of chest wall Problem List/Assessment/Plan (1) Gastrocnemius tendon rupture (2) Postoperative nausea (3) Cellulitis of chest wall (4) Allergic reaction (5) Chest pain (6) Musculoskeletal pain Plan/Recommendation ASSESSMENT AND PLAN: ID Problem List: - Allergic reaction to adhesive tape - Pacemaker site erythema and swelling - Recent pacemaker placement (07/15/2024) - Symptomatic bradycardia - Local cellulitis Assessment: This is a 48 y.o. female with a past medical history of symptomatic bradycardia status post recent pacemaker placement on 07/15/2024, who presents with redness, irritation, and swelling at the pacemaker site. The patient reports significant pain, redness, and swelling at the pacemaker site, potentially due to an allergic reaction to adhesive tape. She denies fevers, chills, nausea, or vomiting. There are no signs of systemic infection. Operative findings by Dr. Garcia indicate that the redness and irritation are at the subdermal and subcutaneous tissue levels. The pacemaker device itself is not involved, and there is no fluid in the pacemaker pocket. The area was irrigated intraoperatively, and operative cultures were obtained (pending results). Blood cultures are negative to date. 07/21: pmm site continues to very tender and painful 07/23: despite having no signs of pacemaker site infection or pocket infection there remains concern for persistent subq infection, due to this Agree with plan to proceed IV antibiotics 07/24: midline in place of her arm , Cultures from pacemaker removal and leads are not growing any organisms 07/26: swabbin gof pacemaker pocket the cultures appear to have grown coagnegative staph on subculture as well as gram negative rods Plan: - Agree with Piccline placement and IV ceftriaxone 2 grams daily fro 3 weeks - follow up with infectious disease in 2-3 weeks - follow up on blood and operative cultures - Continue intravenous vancomycin and ceftriaxone for empiric antibiotic coverage while in-patient Isolation Precautions: standard Assessment and plan were discussed with the patient as written above. Plan is subject to change pending incorporation of new incoming information/diagnostics. Updates may be added as addendum at the bottom of this note. Thank you for this consult. Infectious Disease will continue to follow. Please contact us for any questions or concerns. Plan discussed with: Other Dietary Evaluation Review Comments: Continue current diet, monitor PO intake to meet 75% of her needs Expected Outcomes/Goals: Meet 75% of her needs, maintain weight. ANILA BUENROSTRO MD Jul 26, 2024 23:33
[2024-07-27 01:00] VITALS: BP 109/68; PULSE 67; RESP 18; O2SAT 97
[2024-07-27 05:00] VITALS: BP 111/79; PULSE 63; RESP 18; TEMP 97.6; O2SAT 100
[2024-07-27 07:35] LABS: Basophils # (auto) 0 10 ^3/uL (0-0.2); Basophils % (auto) 0.9 % (0.0-2.0); Eosinophils # (auto) 0.3 10 ^3/uL (0-0.8); Eosinophils % (auto) 6.2 % (0.0-7.0); Hematocrit 40.7 % (36.0-46.0); Lymphocytes # (auto) 1.4 10 ^3/uL (0.4-5.4); Lymphocytes % (auto) 29.2 % (10.0-50.0); Mean Corpuscular Hgb Conc. 34.5 g/dL (32.0-36.0); Mean Corpuscular Volume 92.7 fL (80.0-100.0); Monocytes # (auto) 0.6 10 ^3/uL (0-1.3); Monocytes % (auto) 12.3 % (0.0-12.0); Neutrophils # (auto) 2.5 10 ^3/uL (1.6-8.6); Neutrophils % (auto) 51.4 % (37.0-80.0); Nucleated Red Blood Cells % 0.1 %; Platelet Count (auto) 252 10^3/uL (140-450); Red Blood Cells 4.39 10^6/uL (4.0-5.20); Red Cell Distribution Width 12.5 % (11.8-14.3)
[2024-07-27 08:00] VITALS: PULSE 58; O2SAT 98
[2024-07-27 08:45] VITALS: BP 107/73; PULSE 62; RESP 16; TEMP 97.8; O2SAT 95
[2024-07-27 12:47] VITALS: BP 118/71; PULSE 75; RESP 20; TEMP 98.2; O2SAT 99
[2024-07-27] MEDS ORDERED: BACDST PO (15:13)
--- NOTE | 2024-07-27 16:42 | DVHDS2 ---
Discharge Summary Date of Admission Jul 18, 2024 at 20:24 Date of Discharge: Jul 27, 2024 Labs/Diagnostic Data: Laboratory Results Test 07/27/24 06:36 07/23/24 05:23 07/22/24 20:43 07/22/24 05:26 White Blood Count 5.0 10^3/uL (4.4-10.8) Red Blood Count 4.39 10^6/uL (4.0-5.20) Hemoglobin 14.0 g/dL (12.2-16.2) Hematocrit 40.7 % (36.0-46.0) Mean Corpuscular Volume 92.7 fL (80.0-100.0) Mean Corpuscular Hemoglobin 32.0 pg (28.0-32.0) Mean Corpuscular Hemoglobin Concent 34.5 g/dL (32.0-36.0) Red Cell Distribution Width 12.5 % (11.8-14.3) Platelet Count 252 10^3/uL (140-450) Mean Platelet Volume 9.8 fL (6.9-10.8) Neutrophils (%) (Auto) 51.4 % (37.0-80.0) Lymphocytes (%) (Auto) 29.2 % (10.0-50.0) Monocytes (%) (Auto) 12.3 % (0.0-12.0) Eosinophils (%) (Auto) 6.2 % (0.0-7.0) Basophils (%) (Auto) 0.9 % (0.0-2.0) Neutrophils # (Auto) 2.5 10 ^3/uL (1.6-8.6) Lymphocytes # (Auto) 1.4 10 ^3/uL (0.4-5.4) Monocytes # (Auto) 0.6 10 ^3/uL (0-1.3) Eosinophils # (Auto) 0.3 10 ^3/uL (0-0.8) Basophils # (Auto) 0 10 ^3/uL (0-0.2) Nucleated Red Blood Cells 0.1 % Creatinine 0.96 mg/dL (0.550-1.02) Glomerular Filtration Rate Calc 73 mL/min (>90) Vancomycin Level Trough 13.2 ug/mL (5-10) Sodium Level 137 mmol/L (136-145) Potassium Level 4.4 mmol/L (3.5-5.1) Chloride Level 104 mmol/L (98-107) Carbon Dioxide Level 28 mmol/L (20-31) Anion Gap 5 (5-15) Blood Urea Nitrogen 11 mg/dL (9-23) BUN/Creatinine Ratio 10.6 (10.0-20.0) Serum Glucose 96 mg/dL (74-106) Calcium Level 10.5 mg/dL (8.7-10.4) Total Bilirubin 0.6 mg/dL (0.2-1.0) Aspartate Amino Transferase (AST) 29 U/L (13-40) Alanine Aminotransferase (ALT) 25 U/L (7-40) Alkaline Phosphatase 93 U/L (46-116) Total Protein 7.3 g/dL (5.7-8.2) Albumin 4.5 g/dL (3.2-4.8) Lactic Acid Level 0.7 mmol/L (0.4-2.0) C-Reactive Protein High Sensitivity 0.40 mg/dL (<1.0) Test 07/18/24 18:13 07/18/24 15:10 07/18/24 14:35 Troponin I High Sensitivity 4 ng/L (</=34) Magnesium Level 1.7 mg/dL (1.6-2.6) B-Type Natriuretic Peptide 20.22 pg/mL (0-100) Urine Color Light-yellow (Yellow) Urine Clarity Clear (Clear) Urine pH 7.5 (5.0-9.0) Urine Specific [place] 1.020 (1.001-1.035) Urine Protein Negative (Negative) Urine Ketones Negative (Negative) Urine Blood Negative /uL (Negative) Urine Nitrite Negative (Negative) Urine Bilirubin Negative (Negative) Urine Urobilinogen Normal mg/dL (Negative) Urine Leukocyte Esterase Negative /uL (Negative) Urine RBC 1 /hpf (0 - 4) Urine WBC 1 /hpf (0 - 5) Urine Squamous Epithelial Cells Few /hpf (<5) Urine Bacteria None seen /hpf (None Seen) Urine Mucus Few (None Seen) Urine Glucose Normal mg/dL (Normal) Other Laboratory Tests 07/27/24 06:36 07/23/24 05:23 Brief Hx & Hospital Course: 48-year-old female who had a recent pacemaker placement for sick sinus syndrome/symptomatic bradycardia presented to the hospital with leakage wound at pacemaker site status post pacemaker extraction. Patient was stated that she was allergic to adhesive tape which was used after the pacemaker placement. Patient was taken to OR by Dr. Doroteo michel for explantation of pacemaker. Infectious Disease was consulted. Patient was was on IV antibiotics. Patient wound culture grew coag-negative Staph aureus as well as Enterobacter cloaca. Patient was was initially planned for discharge on ceftriaxone 2 g IV daily for three weeks. I talked to infectious disease specialist and went over the wound culture. Bactrim has been added. Patient is being discharged under stable condition. Patient's significant other at bedside all the questions were answered. Patient was being discharged under stable condition. Patient was vitals remained stable physical examination no change. Condition at Discharge: Stable Final Diagnosis/Problems List 1. Pacemaker site infection status post pacemaker removal 2. History of symptomatic bradycardia status post pacemaker placement, currently explantation of pacemaker because of underlying cellulitis and infection Discharge Disposition: Home with Health Services SNF Discharge Will this Physician continue t: No Discharge Instruct/Medications Diet: Consistent carbohydrate, Cardiac 2g Na,low cholest Activity: No Restrictions, As Tolerated Follow Up/Referral: cardiology next week. ID doctor Darryn Guerrier after 2 weeks of iv antibiotics Medications: home meds AND rocephin iv for few weeks Discharge Statement: "Patient was advised to return to the ER or call 911 if any headaches, dizziness, shortness of breath, chest pain, abdominal pain, bleeding, fevers, or worsening of medical condition. Patient was counseled about treatment plan, medications, possible side effects, patientverbalized understanding. All questions were answered to the best of my ability. This discharge took greater then 30 minutes in planning, reviewing documentation, counseling the patient, and discussing with other team members." ASSESSMENT ASSESSMENT Assessment Successful permanent pacemaker extraction, cellulitis chest wall Date of Service: Jul 27, 2024 Billing Provider: KAVIN LOMAX MD Common Visit Codes: NOT BILLABLE KAVIN LOMAX MD Jul 27, 2024 16:42
--- NOTE | 2024-07-28 10:30 | ECG ---
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
--- NOTE | 2024-07-28 11:15 | ECG ---
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
== END 2024-07-27 14:30 | disposition home health service (06) | DRG 180 ==
LOC: ER 13:03 → TELE 17:35 → UNDOADMIN 17:35 → TELE 20:24 → TELE-WESTW 23:20
PROVIDERS: ADMIT Nurse Practitioner Family; ATTEND Internal Medicine
PROC: 0JJT0ZZ Inspection of Trunk Subcutaneous Tissue and Fascia, Open Approach (ICD-10-PCS; principal; 2024-07-20)
PROC: 02PA3MZ Removal of Cardiac Lead from Heart, Percutaneous Approach (ICD-10-PCS; 2024-07-23)
PROC: 0JPT3PZ Removal of Cardiac Rhythm Related Device from Trunk Subcutaneous Tissue and Fascia, Percutaneous Approach (ICD-10-PCS; 2024-07-23)
PROC: 05HB33Z Insertion of Infusion Device into Right Basilic Vein, Percutaneous Approach (ICD-10-PCS; 2024-07-24)
PROC: B54MZZA Ultrasonography of Right Upper Extremity Veins, Guidance (ICD-10-PCS; 2024-07-24)
PROC: 05HB33Z Insertion of Infusion Device into Right Basilic Vein, Percutaneous Approach (ICD-10-PCS; 2024-07-27)
PROC: B54MZZA Ultrasonography of Right Upper Extremity Veins, Guidance (ICD-10-PCS; 2024-07-27)
DX: T82.7XXA Infection and inflammatory reaction due to other cardiac and vascular devices, implants and grafts, initial encounter (principal); I45.89 Other specified conduction disorders; L03.313 Cellulitis of chest wall; R47.01 Aphasia; G89.4 Chronic pain syndrome; R00.1 Bradycardia, unspecified; Y83.1 Surgical operation with implant of artificial internal device as the cause of abnormal reaction of the patient, or of later complication, without mention of misadventure at the time of the procedure; Z95.0 Presence of cardiac pacemaker; Z91.048 Other nonmedicinal substance allergy status; Z82.3 Family history of stroke; Z90.710 Acquired absence of both cervix and uterus; Z91.041 Radiographic dye allergy status; Z80.0 Family history of malignant neoplasm of digestive organs; Z80.41 Family history of malignant neoplasm of ovary; Z90.49 Acquired absence of other specified parts of digestive tract; Y92.89 Other specified places as the place of occurrence of the external cause; Z88.9 Allergy status to unspecified drugs, medicaments and biological substances; Z79.899 Other long term (current) drug therapy
CPT/HCPCS: 33233; 33235; 36415; 71045; 71250; 80048; 80053; 80202; 81001; 82565; 83605; 83735; 83880; 84484; 85025; 86141; 87040; 87070; 87075; 87077; 87081; 87186; 87205; 93005; 93306; 99152; G0378; J0131; J1100; J2250; J2543; J2704; J3490; J7060

== ENCOUNTER 2024-08-07 17:10 | Emergency (ER) | payer MEDICAID ==
[~2024-08-07] VITALS: Ht 162.6 cm; Wt 57.2 kg
[~2024-08-07 17:10] MED LIST changes: +BACDST PO; +MORP10SO PO; +NALO4SPR2
[2024-08-07 17:31] VITALS: BP 139/91; PULSE 77; RESP 16; O2SAT 95
--- NOTE | 2024-08-07 19:55 | DVH ---
Upper Extremity Venous Duplex Clinical History: RUE pain, midline in place Comparison: None Technique: Duplex Doppler evaluation of the venous system of the RIGHT lower neck and upper extremity including color Doppler and spectral/pulsed waveform analysis was performed. Findings: The internal jugular vein demonstrates appropriate compressibility and waveform variability. The subclavian vein is patent on color Doppler evaluation without intraluminal thrombus and demonstra michaela waveform variability. The visualized portion of the brachiocephalic vein is patent on color Doppler evaluation without intr aluminal thrombus and demonstrates waveform variability. The axillary vein demonstrates appropriate compressibility and waveform variability. The brachial veins demonstrate appropriate compressibility and patency on Doppler evaluation. The basilic vein demonstrates appropriate compressibility and patency on Doppler evaluation. A centr al line is noted in the basilic vein. The cephalic vein demonstrates appropriate compressibility and patency on Doppler evaluation. Impression: 1. No venous thrombus identified in the RIGHT upper extremity vessels evaluated above. If clinical concern/symptoms persist or worsen, short-interval follow-up study is suggested.
--- NOTE | 2024-08-14 16:27 | ED.PDOC ---
History of Present Illness HPI Comments This patient is a pleasant 48-year-old female who arrives the ED today for evaluation of a right upper arm PICC line. Patient has a line placed several weeks back for IV antibiotics to be utilized at home. Patient states she had an allergic reaction to the safe and believes that the PICC line may be compromise. Patient denies any fever nausea or vomiting. Vital signs were stable on arrival. Chief Complaint: Tube Replacement Time Seen by MD: 18:02 Primary Care Provider: SILVANA Hua Notes: Nurses Notes Allergies: Coded Allergies: Povidone Iodine (Verified Allergy, Unknown, RASH, 07/14/24) Uncoded Allergies: ADHESIVE TAPE (Allergy, Severe, anaphylaxis, 07/19/24) Home Meds Active Scripts Sulfamethoxazole W/Trimethopri (Bactrim Ds Tablet) 1 Tab Tb, 1 TAB PO BID for 21 Days, #42 TAB Prov:ANILA BUENROSTRO MD 07/27/24 Naloxone HCl (Narcan) 4 Mg/0.1 Ml Spr, 4 MG NA Q5MINP PRN, #1 SPRAY To prevent narcotic overdose. Take it as per instructions till fully awake and alert. Prov:ZENY CURRY MD 07/24/24 Morphine Sulfate (Morphine Sulfate) 10 Mg/5 Ml Jennifer, 5 MG PO Q8HPRN PRN, #120 ML Prov:ZENY CURRY MD 07/24/24 Reported Medications Multiple Vitamin (Multivitamins) Tab, 1 TAB PO DAILY, #90 TAB 3 Refills 07/14/24 Information Source: Patient Mode of Arrival: Ambulatory Severity: Moderate Timing: Days Duration: Since onset Prehospital treatment: None Past Medical History PAST MEDICAL HISTORY: Denies Past Medical History (Other): Patient currently has a right upper arm PICC line for at home IV antibiotics. Surgical History: Appendectomy, Cholecystectomy, Hernia Repair, Hysterectomy HEALTH OFFICER History: No Pertinent HEALTH OFFICER History Family History Family History: Reviewed,noncontributory to illness Social History Smoker: Non-Smoker Alcohol: Occasionally Drugs: Denies Drug Use Lives In: Home Constitutional: denies: chills, diaphoresis, fatigue, fever, malaise, sweats, weakness, others EENTM: denies: blurred vision, double vision, ear bleeding, ear discharge, ear drainage, ear pain, ear ringing, eye pain, eye redness, hearing loss, mouth pain, mouth swelling, nasal discharge, nose bleeding, nose congestion, nose pain, photophobia, tearing, throat pain, throat swelling, voice changes, others Respiratory: denies: cough, hemoptysis, orthopnea, SOB at rest, shortness of breath, SOB with excertion, stridor, wheezing, others Cardiovascular: denies: chest pain, dizzy spells, diaphoresis, Dyspnea on exertion, edema, irregular heart beat, left arm pain, lightheadedness, palpitations, PND, syncope, others Gastrointestinal: denies: abdomen distended, abdominal pain, blood streaked bowels, constipated, diarrhea, dysphagia, difficulty swallowing, hematemesis, melena, nausea, poor appetite, poor fluid intake, rectal bleeding, rectal pain, vomiting, others Genitourinary: denies: abnormal vagina bleeding, burning, dyspareunia, dysuria, flank pain, frequency, hematuria, incontinence, pain, , vagina discharge, urgency, others Neurological: denies: dizziness, fainting, headache, left sided numbness, left sided weakness, numbness, paresthesia, pre-existing deficit, right sided numbness, right sided weakness, seizure, speech problems, tingling, tremors, weakness, others Musculoskeletal: denies: back pain, gout, joint pain, joint swelling, muscle pain, muscle stiffness, neck pain, others Integumetry: reports: others (Right upper lower arm PICC line concerns); denies: bruises, change in color, change in hair/nails, dryness, laceration, lesions, lumps, rash, wounds Allergic/Immunocompromised: denies: Difficulty Healing, Frequent Infections, Hives, Itching, others Hematologic/Lymphatic: denies: anemia, blood clots, easy bleeding, easy bruising, swollen glands, others Endocrine: denies: excessive hunger, excessive sweating, excessive thirst, excessive urination, flushing, intolerance to cold, intolerance to heat, unexplained weight gain, unexplained weight loss, others Psychiatric: denies: anxiety, bipolar disorder, depression, hopeless, panic disorder, schizophrenia, sleepless, suicidal, others Physical Exam General Appearance: No Apparent Distress (Patient was in no distress at time of evaluation.), Normal HEENT: Normal ENT Inspection, Pharynx Normal, TMs Normal Neck: Full Range of Motion, Non-Tender, Normal, Normal Inspection Respiratory: Chest Non-Tender, Lungs Clear, No Accessory Muscle Use, No Respiratory Distress, Normal Breath Sounds Cardiovascular: No Edema, No JVD, No Murmur, No Gallop, Normal Peripheral Pulses, Regular Rate/Rhythm Breast Exam: Deferred Gastrointestinal: No Organomegaly, Non Tender, No Pulsatile Mass, Normal Bowel Sounds, Soft Genitalia: Deferred Pelvic: Deferred Rectal: Deferred Extremities: Other (Patient displays a right upper arm PICC line with local redness due to what appears to be a tape reaction. Localized erythema with mild edema. No signs of definitive infection.) Neurologic: Alert, housefellow II-XII nml as Tested, No Motor Deficits, Normal Affect, Normal Mood, No Sensory Deficits Cerebellar Function: Normal Reflexes: Normal Skin: Dry, Normal Color, Warm, Other (See extremities for description of right upper arm PICC line presentation.) Lymphatic: No Adenopathy Was a procedure done? Was a procedure done?: Yes Sedation Sedation?: No Other Procedure Notes PICC line nurses notified and replaced the right upper arm PICC line status post an ultrasound evaluation to rule out any blood clot formation. Ultrasound results were unremarkable for any clotting. Differential Dx Considerations may include: PICC line replacement, DVT X-Ray, Labs, Meds, VS Vital Signs Date Time Temp Pulse Resp B/P (MAP) Pulse Ox O2 Delivery O2 Flow Rate FiO2 08/07/24 17:31 98.2 77 16 139/91 (107) 95 X-Ray, Labs, Meds, VS Comment PICC line nurse successfully replace the patient's PICC line and patient was discharged home happy to have her concerns remedies. Advised patient continue with her antibiotics as directed. Time of 1ST Reevaluation: 16:25 Reevaluation 1ST: Improved Consultation: PCP Patient Education/Counseling: Diagnosis, Treatment Family Education/Counseling: Diagnosis, Treatment Departure 1 Departure Time of Disposition: 16:25 Impression: Primary Impression: S/P PICC central line placement Additional Impression: Occluded PICC line Disposition: HOME / SELF CARE / HOMELESS Condition: Stable Additional Instructions: Discharge Note: Continue on your medications. Follow up with your primary Dr. Take your prescriptions as ordered. If your condition becomes worse call and follow up with your primary Dr. for instructions or return to the ER if needed. Keep wound clean and dry. Have a wound check in 2 days. Thank you for visiting [facility]. Discharged With: Self, Friend Critical Care Note Critical Care Time?: No Stability Stability form required: No Heart Score Heart Score: Heart Score Response (Comments) Value History N/A 0 EKG N/A 0 Age N/A 0 Risk Factors N/A 0 Troponin N/A 0 Total 0 SHEFALI CHAVEZ PAC Aug 14, 2024 16:27
== END 2024-08-07 19:53 | disposition home or self-care (01) ==
LOC: ER 17:10
DX: T82.898A Other specified complication of vascular prosthetic devices, implants and grafts, initial encounter (principal); Z95.828 Presence of other vascular implants and grafts; Z90.49 Acquired absence of other specified parts of digestive tract; Z90.710 Acquired absence of both cervix and uterus; Z98.890 Other specified postprocedural states; Z91.041 Radiographic dye allergy status; Z79.899 Other long term (current) drug therapy; Y92.89 Other specified places as the place of occurrence of the external cause
CPT/HCPCS: 93971

== ENCOUNTER 2025-02-12 11:28 | Inpatient (IN) | payer BC, MEDICAID ==
[~2025-02-12] VITALS: Ht 162.6 cm; Wt 70.3 kg
[~2025-02-12 11:28] MED LIST changes: -BACDST PO; -MORP10SO PO; -MULT-1018 PO; +MULT1TAB21 PO; -NALO4SPR2
[2025-02-12] MEDS: VANCOMYCIN HCL 1000 MG VL ONE ×2 (13:04→14:52)
[2025-02-12] MEDS ORDERED: fentaNYL CITRATE 100 MCG/2 ML VL ONE (13:19)
[2025-02-12] MEDS ORDERED: MIDAZOLAM HCL 2MG/2ML 2ml VIAL (1mg/ml) ONE (13:19)
[2025-02-12] MEDS ORDERED: HYDROmorphone HCL 2 MG/ML VL/or syr ONE (13:19)
[2025-02-12] MEDS ORDERED: PROPOFOL 10 MG/ML 20 ML IV ONE (13:40)
[2025-02-12] MEDS: IOHEXOL 300 MG/ML 100ML BOTTLE IJ ONE (13:52)
[2025-02-12] MEDS: LIDOCAINE 2%HCL (LOCAL ANESTH.) INJ 10ml MDV ONE (13:56)
[2025-02-12] MEDS ORDERED: ONDANSETRON HCL 4 MG/2 ML VIAL ONE (14:00)
[2025-02-12 15:10] VITALS: PULSE 69; RESP 16; O2SAT 100
[2025-02-12] MEDS ORDERED: hydrALAZINE HCL 20 MG/ML VL IV PRN (15:15)
[2025-02-12] MEDS ORDERED: MIDAZOLAM HCL 2MG/2ML 2ml VIAL (1mg/ml) IV PRN (15:15)
[2025-02-12] MEDS: KETOROLAC TROMETH 30 MG/ML 1ML VIAL IV ONE (15:15)
[2025-02-12 15:20] VITALS: PULSE 97; RESP 15; O2SAT 100
[2025-02-12] MEDS: HYDROmorphone HCL 2 MG/ML VL/or syr IV PRN (15:34)
[2025-02-12] MEDS: MORPHINE SULFATE 4 MG/ML SYR/VIAL IV PRN (15:47)
[2025-02-12] MEDS: HYDROmorphone HCL 2 MG/ML VL/or syr ONE (15:50)
[2025-02-12] MEDS ORDERED: NITROGLYCERIN 0.4 MG SL TAB SL PRN ×2 (16:30→17:00)
[2025-02-12] MEDS ORDERED: ONDANSETRON HCL 4 MG/2 ML VIAL IV PRN (16:30)
[2025-02-12] MEDS ORDERED: MORPHINE SULFATE INJ 2 MG/ml SYRG IV PRN (16:30)
[2025-02-12] MEDS ORDERED: ACETAMINOPHEN 325 MG TAB PO PRN (17:00)
--- NOTE | 2025-02-12 17:05 | DVHHP2 ---
History of Present Illness Reason for Visit: Pacemaker placement History of Present Illness Case, Allison Hoffman is a 49-year-old female with past medical history of hypertension, dysrhythmias, bilateral shoulder surgery, cholecystectomy, right thigh biopsy, hernia repair, hysterectomy, and appendectomy who presents to the hospital today for pacemaker placement. Patient rates her pain currently 4/10 aching and constant. Patient denies any recent trauma or injury, recent sick contacts, shortness of breath, fever, chills, abdominal pain, nausea, vomiting, or diarrhea. Cardiovascular: HTN Past Medical History Dysrhythmias Past Surgical History: Appendectomy, Cholecystectomy, Hysterectomy, Hernia Repair, Other (Bilateral shoulder surgery and right thigh biopsy) Family History: None Smoke: No ALCOHOL: none Drugs: None Lives: with Family Domestic Violence: Neg Review of Systems Constitutional: Yes: Other Allergies: Uncoded Allergies: ADHESIVE TAPE (Allergy, Severe, anaphylaxis, 07/19/24) Medications Current Medications Medications Dose Ordered Sig/Leticia Route Start Time Stop Time Status Last Admin Dose Admin Nitroglycerin 0.4 mg Q5MINP PRN SL 02/12/25 16:30 Morphine Sulfate 2 mg Q30M PRN IV 02/12/25 16:30 Acetaminophen/ Hydrocodone Bitart 1 tab Q4HPRN PRN PO 02/12/25 16:30 Ondansetron HCl 4 mg Q4HPRN PRN IV 02/12/25 16:30 Morphine Sulfate 2 mg Q3HPRN PRN IV 02/12/25 16:30 Exam Vital Signs Vital Signs Date Time Temp Pulse Resp B/P (MAP) Pulse Ox O2 Delivery O2 Flow Rate FiO2 02/12/25 16:56 74 12 100/68 02/12/25 15:20 Nasal Cannula 2.0 100 02/12/25 15:20 100 02/12/25 15:10 97.4 97.4 General Appearance: Alert, Oriented X3, Cooperative, No acute distress HEENT: Atraumatic, PERRLA, EOMI, Mucous membr. moist/pink Respiratory: Clear to auscultation, Normal air movement Cardiovascular: Normal S1, Normal S2 Abdominal: Normal bowel sounds, Soft Extremities: Normal pulses Skin: No significant lesion Neuro: Normal speech, Normal tone, Sensation intact Psych/Mental Status: Mental status NL, Mood NL SEPSIS Sepsis Screen Physician Orders C Arm Fluoroscopy Up To 60min (02/12/25 14:55) Oxygen By Face Mask (02/12/25 15:15) Oxygen By Nasal Cannula (02/12/25 15:15) Pharmacology Professor (02/12/25 15:15) Notify Anesth. For Changes: (02/12/25 15:15) Pulse Ox Assessment (02/12/25 15:15) May Have Head Of Bed Up (02/12/25 15:15) Continue Present Iv (02/12/25 15:15) Follow Iv With Surgeon Orders (02/12/25 15:15) Discharge To Room Per Criteria (02/12/25 15:15) Admit (02/12/25 16:24) Cardiac Diet-2gna,Lofat,Lochol (02/12/25 Dinner) Electrocardigram (02/13/25 04:00) Nitroglycerin Sublingual (Ntrostat Subli (02/12/25 16:30) Morphine Sulfate Injection (02/12/25 16:30) Stat Ekg For Chest Pain (02/12/25 16:24) Notify Md Of Changes From Base (02/12/25 16:24) Compound Machine Operator For 24 Hours (02/12/25 16:24) Emergency Dysrhythmia Protocol (02/12/25 16:24) Rhythm Strips Once Every Shift (02/12/25 16:24) Oxygen By Nasal Cannula (02/12/25 16:24) Hydrocodone-Acet 5/325mg Tab ([place] 5/32 (02/12/25 16:30) Ondansetron Hcl (Zofran) (02/12/25 16:30) Morphine Sulfate Injection (02/12/25 16:30) Basic Metabolic Panel (02/13/25 04:00) Complete Blood Count (02/13/25 04:00) Admit (02/12/25 16:57) Allergies (02/12/25 16:57) Code Status (02/12/25 16:57) Ondansetron Hcl (Zofran) (02/12/25 17:00) Comprehensive Metabolic Panel (02/13/25 04:00) Acetaminophen Tablet (Tylenol Tablet) (02/12/25 17:00) Nitroglycerin Sublingual (Ntrostat Subli (02/12/25 17:00) Morphine Sulfate Injection (02/12/25 17:00) Oxygen By Nasal Cannula (02/12/25 16:57) Vital Signs Date Time Temp Pulse Resp B/P (MAP) Pulse Ox O2 Delivery O2 Flow Rate FiO2 02/12/25 16:56 74 12 100/68 02/12/25 16:07 73 12 110/80 02/12/25 15:57 80 14 106/67 02/12/25 15:47 84 13 122/81 02/12/25 15:34 71 12 119/85 02/12/25 15:20 Nasal Cannula 2.0 100 02/12/25 15:20 97 15 100 Nasal Cannula 2.0 02/12/25 15:10 Nasal Cannula 7.0 100 02/12/25 15:10 97.4 71 14 137/79 (98) 99 97.4 02/12/25 15:10 69 16 100 Nasal Cannula 7.0 02/12/25 11:47 98.3 59 16 116/75 (89) 96 98.3 Medications Medications Dose Ordered Sig/Leticia Route Start Time Stop Time Status Last Admin Dose Admin Hydromorphone HCl 0.5 mg Q10M PRN IV 02/12/25 15:15 02/12/25 15:56 DC 02/12/25 16:56 0.5 MG Lidocaine HCl 20 ml STK-MED ONCE .ROUTE 02/12/25 13:02 02/12/25 13:00 DC 02/12/25 13:56 10 ML Morphine Sulfate 2 mg Q2HPRN PRN IV 02/12/25 15:15 02/12/25 15:31 DC 02/12/25 15:47 2 MG Vancomycin HCl 1,000 mg STK-MED ONCE .ROUTE 02/12/25 13:02 02/12/25 13:00 DC 02/12/25 14:52 1,000 MG Assessment/Plan Assessment/Plan Assessment Pacemaker placement today Acute hypoxic respiratory failure History of AV block second-degree, dysrhythmias History of hypertension History of bilateral shoulder surgery History of cholecystectomy History of right thigh biopsy History of hernia repair History of hysterectomy History of appendectomy Plan Admit to telemetry Antiemetics Pain management Supportive oxygen Chest x-ray EKG Diet Patient states she does not take any medications at home DVT prophylaxis-SCDs PUD prophylaxis-not indicated no history of GERD or GI bleed Discussed plan of care with patient and nurse [id number] Preventive counseling healthy eating habits, physical activity, and regular checkups Plan discussed with: Patient My Orders Orders - RACHEL SHAH Procedure Category Date Status Time Admit ADMIT 02/12/25 Verified 16:57 Allergies XIOMARA 02/12/25 Verified 16:57 Code Status CODE 02/12/25 Verified 16:57 Ondansetron Hcl PHA 02/12/25 Verified (Zofran) 17:00 Comprehensive LAB 02/13/25 Verified Metabolic Panel 04:00 Acetaminophen Tablet PHA 02/12/25 Verified (Tylenol Tablet) 17:00 Nitroglycerin PHA 02/12/25 Verified Sublingual (Ntrostat 17:00 Morphine Sulfate PHA 02/12/25 Verified Injection 17:00 Oxygen By Nasal RT 02/12/25 Verified Cannula 16:57 Date of Service: Feb 12, 2025 Billing Provider: RACHEL SHAH Common Visit Codes: 58657-[id number] INP/OBS CARE (HIGH) Secondary Visit Codes: [id number]-[id number] COUNSELING IND RACHEL SHAH Feb 12, 2025 17:05
[2025-02-12 17:10] VITALS: BP 99/71; PULSE 66; RESP 16; TEMP 96.8; O2SAT 97
[2025-02-12] MEDS: MORPHINE SULFATE INJ 2 MG/ml SYRG IV PRN ×2 (17:31→20:28)
[2025-02-12] MEDS: ONDANSETRON HCL 4 MG/2 ML VIAL IV ONE (17:40)
--- NOTE | 2025-02-12 17:43 | DVHOP2 ---
Operative Report - 2 Report Details Date: 02/12/25 Preop Diagnosis: Chronotropic incompetence Postop Diagnosis: Chronotropic incompetence, successful permanent pacemaker implantation. Surgeon: Chino Garcia MD Anesthesiologist: Dr. burroughs Anesthesia: General Implant: Permanent pacemaker Consent: The patient was informed of the risks and benefits of the procedure. These include but are not limited to complications of anesthesia, postoperative infection, incomplete relief of symptoms, recurrence of symptoms, damage to blood vessels, nerves and tendons, deep venous thrombosis, pulmonary embolism and possible need for repeat surgery in the future. Complications: No complications Estimated Blood Loss: 5 cc Findings: Chronotropic incompetence Indications for Surgery: Chronotropic incompetence Name of Procedure Performed Permanent pacemaker implantation Procedure Details Procedure Details: Prior full informed consent obtained the patient was given general anesthesia by Anesthesiology. Patient was prepped and draped in usual fashion an incision made over the left pectoral area and dissection planes with the electrocautery and blunt dissection to form a pocket under the left pectoral fascia. A venogram was performed and the subclavian vein was identified under fluoroscopic guidance. A cook needle was inserted and AJ curved guidewire was used to place peel-away sheaths through which active fixation electrodes were placed into the RV apex and right atrial appendage without complications. After adequate capture and sensitivity thresholds obtained they were sutured with 0 Ethibond.. We then flushed the pocket with antibiotic solution and placed the generator in the pocket. The pocket was sutured with 3-0 Vicryl and the skin was closed with 4-0 Monocryl. Patient tolerated the procedure well there were no complications. Adequate capture and sensitivity thresholds were obtained as mentioned.+ the generator placed was an Amvia Edge DR-T by [employer]. Serial #[id number]. The atrial lead is a Solia S45 serial [id number] by [employer]. The ventricular lead is a Solia S 53 serial number [id number] by [employer]. The R-wave was 7.3 At 0.5 volts 0.4 milliseconds and 700 Ohms of impedance. The right atrial P wave was 4.0 volts at2 volts and 0.4 milliseconds. 485 Ohms of impedance. The mode was set at DDDR/CLS with a lower rate of 60 and an upper rate of 140. Av delay of 250/220 milliseconds. PV AERP at 300 milliseconds. Right atrial sensitivity automatically set at 0.5 mV. RV sensitivity at 2 mV. RA output at five-0.4 milliseconds with an RV output at 4.0 volts and 0.4 milliseconds A chest x-ray was ordered for evaluation of placement. Patient tolerated the procedure well there were no complications. Impression: Successful placement of DDD pacemaker. Indication is chronotropic incompetence. Recommendations:: Continue medical therapy. Risk factor modification to continue. Pain medications as needed. Given patient's allergy to adhesive tape we will avoid all adhesive tape and glue. Condition Good Disposition Still a Patient Date of Service: Feb 12, 2025 Billing Provider: CHINO GARCIA Sr., MD Cardiology Common Codes: [id number]-[id number] INP/OBS CARE (High) Card. Pacer Implants/Gen [id number] DUAL LEAD PACER CHINO GARCIA Sr., MD Feb 12, 2025 17:43
[2025-02-12 18:00] VITALS: BP 99/71; PULSE 66; RESP 16; TEMP 96.8; O2SAT 97
--- NOTE | 2025-02-12 18:43 | DVH ---
CHEST RADIOGRAPH Indication: baseline Technique: Single frontal view of the chest was obtained Comparison: XY CHEST PORTABLE on DOS: 07/18/24, XY CHEST PORTABLE on DOS: 07/15/24 FINDINGS: Lines and Tubes: None Lungs: No focal consolidation. Pleura: No effusion. No pneumothorax. Cardiomediastinal contours: Unremarkable Bones: No acute osseous abnormality. IMPRESSION: 1. Dual-chamber pacemaker in place with pulse generator over the left chest. 2. Battery orientation configuration of or higher is are slightly different than prior study of 07/18.
--- NOTE | 2025-02-12 18:47 | DVH ---
C-ARM FLUOROSCOPY: PROCEDURE: C-arm for pacemaker placement over left chest FLUOROSCOPY TIME: 355.1 seconds DAP: 59.03 mGy mgy FINDINGS: Spot intraoperative C arm radiographs demonstrating placement of pacemaker.. IMPRESSION: 1. Please refer to surgical report for detailed findings.
[2025-02-12 20:00] VITALS: PULSE 69
[2025-02-12] MEDS: ONDANSETRON HCL 4 MG/2 ML VIAL IV PRN (20:30)
[2025-02-12 21:00] VITALS: BP 103/73; PULSE 64; RESP 18; TEMP 97.8; O2SAT 64
[2025-02-13 01:00] VITALS: BP 95/66; PULSE 72; RESP 18; TEMP 97.8; O2SAT 98
[2025-02-13 05:00] VITALS: BP 91/64; PULSE 65; RESP 16; TEMP 97.8; O2SAT 97
[2025-02-13 06:14] LABS: Hematocrit 40.8 % (36.0-46.0); Hemoglobin 14.3 g/dL (12.2-16.2); Mean Corpuscular Hemoglobin 32.0 pg (28.0-32.0); Mean Corpuscular Volume 91.5 fL (80.0-100.0); Nucleated Red Blood Cells % 0.1 %
[2025-02-13 06:19] LABS: Alanine Aminotransferase 42 U/L (7-40); Alkaline Phosphatase 89 U/L (46-116); Anion Gap 9 (5-15); BUN/Creatinine Ratio 12.0 (10.0-20.0); Blood Urea Nitrogen 10 mg/dL (9-23); Calcium 9.4 mg/dL (8.7-10.4); Carbon Dioxide 26 mmol/L (20-31); Chloride 105 mmol/L (98-107); Glucose 118 mg/dL (74-106); Potassium 4.2 mmol/L (3.5-5.1); Sodium 140 mmol/L (136-145); Total Protein 6.6 g/dL (5.7-8.2)
[2025-02-13 06:20] LABS: Albumin 4.2 g/dL (3.2-4.8)
[2025-02-13 06:21] LABS: Bilirubin, Total 0.6 mg/dL (0.2-1.0)
[2025-02-13 08:13] VITALS: BP 98/65; PULSE 75; RESP 16; TEMP 97.2; O2SAT 95
[2025-02-13] MEDS: KETOROLAC TROMETH 30 MG/ML 1ML VIAL IV ONE (08:47)
[2025-02-13 09:29] LABS: Base Excess -1.8 mmol/L (-2.0-3.0)
[2025-02-13] MEDS: LORazepam 0.5 MG TAB PO ONE (10:15)
[2025-02-13] MEDS: SODIUM CHLORIDE 0.9% 500 ML IV ONE (12:45)
[2025-02-13 13:00] VITALS: BP_SYST 143; BP_SYST 87; BP_DIAS 53; BP_DIAS 73; PULSE 56; PULSE 72; RESP 16; RESP 17; TEMP 96.6; TEMP 98.2; O2SAT 93; O2SAT 97
[2025-02-13] MEDS: diphenhdrAMINE HCL 50 MG/1 ML VL IV ONE (13:03)
--- NOTE | 2025-02-13 13:24 | DVHPN2 ---
Progress Note - Dictate Date Seen: Feb 13, 2025 Medical Necessity Reason Pt with a Central, PICC or Fol: No Subjective Complains of nonspecific chest and right shoulder discomfort. Patient had a pacemaker placed left anterior chest yesterday. vital signs Vital Sign Date Time Temp Pulse Resp B/P (MAP) Pulse Ox O2 Delivery O2 Flow Rate FiO2 02/13/25 09:31 75 18 98/56 02/13/25 08:13 97.2 95 97.2 02/13/25 08:00 Room Air* 0 21 Total Intake and Output 02/12/25 02/12/25 02/13/25 15:00 23:00 07:00 Intake Total 100 ml 1930 ml 500 ml Balance 100 ml 1930 ml 500 ml medications Current Medications Medications Dose Ordered Sig/Leticia Route Start Time Stop Time Status Last Admin Dose Admin Acetaminophen/ Hydrocodone Bitart 1 tab Q4HPRN PRN PO 02/12/25 16:30 Morphine Sulfate 2 mg Q3HPRN PRN IV 02/12/25 16:30 02/13/25 09:31 2 MG Ondansetron HCl 4 mg Q4HP PRN IV 02/12/25 17:00 02/13/25 02:47 4 MG Acetaminophen 650 mg Q6HP PRN PO 02/12/25 17:00 Nitroglycerin 0.4 mg Q5MINP PRN SL 02/12/25 17:00 Morphine Sulfate 2 mg Q30M PRN IV 02/12/25 17:00 02/12/25 20:28 2 MG Famotidine 20 mg Q12HR PO 02/13/25 22:00 objective Comfortable in bed without any acute distress at present. Family at bedside. Heart regular rate and rhythm S1-S2. Lungs fair air movement without rales wheezes. Abdomen soft positive bowel sounds. Extremities no edema. Good range of motion in the right and left shoulder. Complains of pain around the incision site/pacemaker site and also chest and neck shoulder regions. laboratory and microbiology Laboratory Tests 02/13/25 05:32 Test 02/13/25 05:32 Range/Units Serum Glucose 118 H 74-106 mg/dL Assessment/Plan Supportive care and treatment for her musculoskeletal pain. Explained to her that post pacemaker placement it is expected to have some discomfort at the incision site and possible musculoskeletal pain. We will use NSAIDs and nausea medications as needed. Reassured the patient. Monitor her today and if she remains stable consider discharge home tomorrow. Problems(with codes): (1) Pacemaker (2) Postoperative nausea (3) Musculoskeletal pain Plan discussed with: Patient ZENY CURRY MD Feb 13, 2025 13:24
--- NOTE | 2025-02-13 14:11 | ECG ---
[facility] Test Date: 2025-02-13 Test Time: 14:10:29 Pat Name: MACRINA ZAMUDIO Department: Respiratoy Room: 0206 A Gender: F Histotechnologist: : 1975 Requested By: ZENY CURRY Order Number: [id number] Reading MD: Johnson Garcia Measurements Intervals [place] Rate: 68 P: 55 SC: 152 QRS: 88 QRSD: 98 T: 42 QT: 412 QTc: 439 Interpretive Statements Sinus rhythm Minimal ST elevation, inferior leads Electronically Signed On 02-15-2025 13:24:52 PDT by Johnson Garcia Please click the below link to view image of tracing.
--- NOTE | 2025-02-13 14:14 | DVH ---
CHEST RADIOGRAPH Indication: Chest pain s/p pacemaker placement Technique: Single frontal view of the chest was obtained Comparison: XY CHEST XRAY 1 VIEW on DOS: 02/12/25, XY CHEST PORTABLE on DOS: 07/18/24, XY CHEST PORTAB LE on DOS: 07/15/24 FINDINGS: Lines and Tubes: Pacemaker in place over the left chest with atrial and ventricular leads in place fi ndings are unchanged from 02/12/2025 Lungs: No focal consolidation. Pleura: No effusion. No pneumothorax. Cardiomediastinal contours: Unremarkable Bones: No acute osseous abnormality. IMPRESSION: 1. No significant change from 02/12/2025
[2025-02-13] MEDS: HYDROcodone-ACET 5/325MG TAB PO PRN (14:55)
[2025-02-13] MEDS: SODIUM CHLORIDE 0.9% 1,000 ML IV SCH (15:15)
[2025-02-13 16:18] VITALS: BP 78/48; PULSE 71; RESP 16; TEMP 97.8; O2SAT 97
[2025-02-13] MEDS: FAMOTIDINE 20 MG TAB PO SCH (19:30)
[2025-02-13 21:00] VITALS: BP 91/60; PULSE 70; RESP 18; TEMP 98.2; O2SAT 98
[2025-02-13] MEDS: diphenhdrAMINE HCL 50 MG/1 ML VL IV PRN (21:21)
[2025-02-14 01:00] VITALS: BP 101/73; PULSE 82; RESP 17; TEMP 99.2; O2SAT 94
[2025-02-14 05:00] VITALS: BP 93/61; PULSE 80; RESP 17; TEMP 98.1; O2SAT 95
[2025-02-14 09:00] VITALS: BP 112/61; PULSE 86; RESP 17; TEMP 99.3; O2SAT 92
[2025-02-14] MEDS ORDERED: ACET160S68 PO (11:45)
[2025-02-14] MEDS ORDERED: DOXY25SU3 PO (11:45)
--- NOTE | 2025-02-14 11:47 | DVHDS2 ---
Discharge Summary Date of Admission Feb 12, 2025 at 16:24 Date of Discharge: Feb 14, 2025 Labs/Diagnostic Data: Laboratory Results Test 02/13/25 09:18 02/13/25 05:32 Blood Gas Specimen Type Arterial Blood Gas Sample Site Right radial Blood Gas Patient Temperature 37.0 Arterial Blood Date Drawn [id number] Arterial Blood pH 7.443 (7.350-7.450) Arterial Blood Partial Pressure CO2 32.0 mmHg (32.0-45.0) Arterial Blood Partial Pressure O2 94.2 mmHg (83.0-108.0) Arterial Blood HCO3 21.4 mmol/L (21.0-28.0) Arterial Blood Oxygen Saturation 96.7 % (94.0-98.0) Arterial Blood Base Excess -1.8 mmol/L (-2.0-3.0) Arterial Blood Oxyhemoglobin 95.4 % (94.0-98.0) Arterial Blood Carboxyhemoglobin 0.9 % (0.5-1.5) Arterial Blood Methemoglobin 0.4 % (0.0-1.5) Casper Test Modified Blood Gas Total Hemoglobin 14.30 g/dL (12.0-16.0) Blood Gas Modality Room air FiO2 % 21.0 White Blood Count 10.3 10^3/uL (4.4-10.8) Red Blood Count 4.46 10^6/uL (4.0-5.20) Hemoglobin 14.3 g/dL (12.2-16.2) Hematocrit 40.8 % (36.0-46.0) Mean Corpuscular Volume 91.5 fL (80.0-100.0) Mean Corpuscular Hemoglobin 32.0 pg (28.0-32.0) Mean Corpuscular Hemoglobin Concent 34.9 g/dL (32.0-36.0) Red Cell Distribution Width 12.6 % (11.8-14.3) Platelet Count 224 10^3/uL (140-450) Mean Platelet Volume 9.7 fL (6.9-10.8) Neutrophils (%) (Auto) 87.1 % (37.0-80.0) Lymphocytes (%) (Auto) 7.8 % (10.0-50.0) Monocytes (%) (Auto) 5.0 % (0.0-12.0) Eosinophils (%) (Auto) 0.0 % (0.0-7.0) Basophils (%) (Auto) 0.1 % (0.0-2.0) Neutrophils # (Auto) 9.0 10 ^3/uL (1.6-8.6) Lymphocytes # (Auto) 0.8 10 ^3/uL (0.4-5.4) Monocytes # (Auto) 0.5 10 ^3/uL (0-1.3) Eosinophils # (Auto) 0 10 ^3/uL (0-0.8) Basophils # (Auto) 0 10 ^3/uL (0-0.2) Nucleated Red Blood Cells 0.1 % Sodium Level 140 mmol/L (136-145) Potassium Level 4.2 mmol/L (3.5-5.1) Chloride Level 105 mmol/L (98-107) Carbon Dioxide Level 26 mmol/L (20-31) Anion Gap 9 (5-15) Blood Urea Nitrogen 10 mg/dL (9-23) Creatinine 0.83 mg/dL (0.550-1.02) Glomerular Filtration Rate Calc 86 mL/min (>90) BUN/Creatinine Ratio 12.0 (10.0-20.0) Serum Glucose 118 mg/dL (74-106) Calcium Level 9.4 mg/dL (8.7-10.4) Total Bilirubin 0.6 mg/dL (0.2-1.0) Aspartate Amino Transferase (AST) 51 U/L (13-40) Alanine Aminotransferase (ALT) 42 U/L (7-40) Alkaline Phosphatase 89 U/L (46-116) Total Protein 6.6 g/dL (5.7-8.2) Albumin 4.2 g/dL (3.2-4.8) Other Laboratory Tests 02/13/25 05:32 Brief Hx & Hospital Course: Case, Allison Hoffman is a 49-year-old female with past medical history of hypertension, dysrhythmias, bilateral shoulder surgery, cholecystectomy, right thigh biopsy, hernia repair, hysterectomy, and appendectomy who presents to the hospital today for pacemaker placement. Patient rates her pain currently 4/10 aching and constant. Patient denies any recent trauma or injury, recent sick contacts, shortness of breath, fever, chills, abdominal pain, nausea, vomiting, or diarrhea. She is observed post pacemaker placement. Patient complained of musculoskeletal sharp pain in the chest and shoulders as well as neck region. Patient also complained of nausea. Patient is supportively treated. Toradol seemed to help her. She is advised to take oral Tylenol as well as oral antibiotic at home. Liquid form is prescribed. Otherwise while in the hospital patient's EKG did not reveal any acute cardiac arrhythmia. Rest of her evaluation workup is normal. Therefore I have talked with the patient and family members at bedside regarding her expected course of recovery from pacemaker placement and pain improvement in the next 1-2 weeks. She is advised to follow up with her medical research assistant to further manage her symptoms as deemed appropriate. Patient verbalized understanding of this, verbalized understanding over hospital diagnosis, treatment she received, discharge medications, discharge instructions and agree with follow-up plan of care as outlined Operations or Procedures Operative Report - 2 Report Details Date: 02/12/25 Preop Diagnosis: Chronotropic incompetence Postop Diagnosis: Chronotropic incompetence, successful permanent pacemaker implantation. Surgeon: Johnson Garcia MD Anesthesiologist: Dr. burroughs Anesthesia: General Implant: Permanent pacemaker Consent: The patient was informed of the risks and benefits of the procedure. These include but are not limited to complications of anesthesia, postoperative infection, incomplete relief of symptoms, recurrence of symptoms, damage to blood vessels, nerves and tendons, deep venous thrombosis, pulmonary embolism and possible need for repeat surgery in the future. Complications: No complications Estimated Blood Loss: 5 cc Findings: Chronotropic incompetence Indications for Surgery: Chronotropic incompetence Name of Procedure Performed Permanent pacemaker implantation Procedure Details Procedure Details: Prior full informed consent obtained the patient was given general anesthesia by Anesthesiology. Patient was prepped and draped in usual fashion an incision made over the left pectoral area and dissection planes with the electrocautery and blunt dissection to form a pocket under the left pectoral fascia. A venogram was performed and the subclavian vein was identified under fluoroscopic guidance. A cook needle was inserted and AJ curved guidewire was used to place peel-away sheaths through which active fixation electrodes were placed into the RV apex and right atrial appendage without complications. After adequate capture and sensitivity thresholds obtained they were sutured with 0 Ethibond.. We then flushed the pocket with antibiotic solution and placed the generator in the pocket. The pocket was sutured with 3-0 Vicryl and the skin was closed with 4-0 Monocryl. Patient tolerated the procedure well there were no complications. Adequate capture and sensitivity thresholds were obtained as mentioned.+ the generator placed was an Delores CARUSO by [employer]. Serial #[id number]. The atrial lead is a Solia S45 serial [id number] by [employer]. The ventricular lead is a Solia S 53 serial number [id number] by [employer]. The R-wave was 7.3 At 0.5 volts 0.4 milliseconds and 700 Ohms of impedance. The right atrial P wave was 4.0 volts at2 volts and 0.4 milliseconds. 485 Ohms of impedance. The mode was set at DDDR/CLS with a lower rate of 60 and an upper rate of 140. Av delay of 250/220 milliseconds. PV AERP at 300 milliseconds. Right atrial sensitivity automatically set at 0.5 mV. RV sensitivity at 2 mV. RA output at five-0.4 milliseconds with an RV output at 4.0 volts and 0.4 milliseconds A chest x-ray was ordered for evaluation of placement. Patient tolerated the procedure well there were no complications. Impression: Successful placement of DDD pacemaker. Indication is chronotropic incompetence. Recommendations:: Continue medical therapy. Risk factor modification to continue. Pain medications as needed. Given patient's allergy to adhesive tape we will avoid all adhesive tape and glue. Condition Good Condition at Discharge: Good Final Diagnosis/Problems List Chronotropic incompetence, successful permanent pacemaker implantation. Discharge Disposition: Home Discharge Instruct/Medications Diet: Regular Activity: No Restrictions, As Tolerated Follow Up/Referral: next week post pacemaker follow up Medications: as prescribed New Medications: Acetaminophen (Tylenol Childrens) 160 Mg/5 Ml Kendra 650 MG PO Q6HPRN PRN, #500 ML Doxycycline (Monohydrate) (Doxycycline) 25 Mg/5 Ml Kendra 100 MG PO BID, #240 ML Continued Medications: Multiple Vitamins W/ Minerals (Multiple Vitamin/Minerals) 1 Tab Tab 1 TAB PO DAILY for SUPPLEMENT Scheduled Doxycycline (Monohydrate) (Doxycycline), 100 MG PO BID Multiple Vitamins W/ Minerals (Multiple Vitamin/Minerals), 1 TAB PO DAILY, (Reported) Scheduled PRN Acetaminophen (Tylenol Childrens), 650 MG PO Q6HPRN PRN Discontinued Medications Multiple Vitamin (Multivitamins), 1 TAB PO DAILY, (Reported) Discontinued Reason: Prescription changed Discharge Statement: "Patient was advised to return to the ER or call 911 if any headaches, dizziness, shortness of breath, chest pain, abdominal pain, bleeding, fevers, or worsening of medical condition. Patient was counseled about treatment plan, medications, possible side effects, patientverbalized understanding. All questions were answered to the best of my ability. This discharge took greater then 30 minutes in planning, reviewing documentation, counseling the patient, and discussing with other team members." ASSESSMENT ASSESSMENT Assessment Chronotropic incompetence, successful permanent pacemaker implantation. ZENY CURRY MD Feb 14, 2025 11:47
[2025-02-14 12:54] VITALS: BP 103/80; PULSE 78; RESP 18; TEMP 99.1; O2SAT 97
[2025-02-14 13:00] VITALS: BP 103/80; PULSE 83; RESP 17; TEMP 99.1; O2SAT 95
[2025-02-14] MEDS: KETOROLAC TROMETH 30 MG/ML 1ML VIAL IV ONE (13:42)
--- NOTE | 2025-02-15 07:34 | ECG ---
[facility] Test Date: 2025-02-14 Test Time: 10:51:09 Pat Name: MACRINA ZAMUDIO Department: Respiratoy Room: 0206 A Gender: F Speeder Frame Tender: EVETTE : 1975 Requested By: ZUHAIR HENDERSON Order Number: [id number] Reading MD: Johnson Garcia Measurements Intervals [place] Rate: 82 P: 36 MN: 150 QRS: 75 QRSD: 95 T: 20 QT: 362 QTc: 423 Interpretive Statements Sinus rhythm Borderline T abnormalities, anterior leads Electronically Signed On 02-15-2025 13:25:14 PDT by Johnson Garcia Please click the below link to view image of tracing.
--- NOTE | 2025-02-15 07:35 | ECG ---
[facility] Test Date: 2025-02-14 Test Time: 10:49:34 Pat Name: MACRINA ZAMUDIO Department: Respiratoy Room: 0206 A Gender: F Certified Pharmacy Technician: EVETTE : 1975 Requested By: RACHEL SHAH Order Number: [id number] Reading MD: Johnson Garcia Measurements Intervals [place] Rate: 79 P: 22 NM: 151 QRS: 71 QRSD: 93 T: 18 QT: 358 QTc: 411 Interpretive Statements Sinus rhythm Borderline T abnormalities, anterior leads Electronically Signed On 02-15-2025 13:25:10 PDT by Johnson Garcia Please click the below link to view image of tracing.
== END 2025-02-14 15:45 | disposition home or self-care (01) | DRG 242 ==
LOC: SUR 11:28 → OVERFLOW 16:24 → TELE-CENTR 17:52 → CENTRAL 02-13 11:14
PROVIDERS: ADMIT Hospitalist
PROC: 02H63JZ Insertion of Pacemaker Lead into Right Atrium, Percutaneous Approach (ICD-10-PCS; 2025-02-12)
PROC: 02HK3JZ Insertion of Pacemaker Lead into Right Ventricle, Percutaneous Approach (ICD-10-PCS; 2025-02-12)
PROC: 0JH606Z Insertion of Pacemaker, Dual Chamber into Chest Subcutaneous Tissue and Fascia, Open Approach (ICD-10-PCS; principal; 2025-02-12 13:28)
DX: I45.89 Other specified conduction disorders (principal); J96.01 Acute respiratory failure with hypoxia; I44.1 Atrioventricular block, second degree; I10 Essential (primary) hypertension; Z90.49 Acquired absence of other specified parts of digestive tract; Z90.710 Acquired absence of both cervix and uterus; Z91.048 Other nonmedicinal substance allergy status
CPT/HCPCS: 36415; 36600; 71045; 76000; 80053; 82805; 85025; 93005; G0378; J1100; J1885; J2003; J2250; J2405; J2704

== ENCOUNTER 2025-04-07 07:32 | Inpatient (IN) | payer BC, MEDICAID ==
[2025-04-07] VITALS (13 sets, daily range): BP systolic 100–126; BP diastolic 68–80; PULSE 62–76; RESP 12–18; TEMP 97.5–98; O2SAT 94–99
[~2025-04-07] VITALS: Ht 162.6 cm; Wt 63.3 kg
[~2025-04-07 07:32] MED LIST changes: +ACET160S68 PO
[2025-04-07] MEDS: HEPARIN IN NS 1000Units/500mL 1,500 ML ONE (08:17)
[2025-04-07] MEDS: IODIXANOL 320MG/ML 100ML BTL IV ONE ×2 (08:17→10:17)
[2025-04-07] MEDS ORDERED: fentaNYL CITRATE 100 MCG/2 ML VL ONE (08:43)
[2025-04-07] MEDS ORDERED: MIDAZOLAM HCL 2MG/2ML 2ml VIAL (1mg/ml) ONE (08:43)
[2025-04-07] MEDS ORDERED: diphenhdrAMINE HCL 50 MG/1 ML VL ONE (08:50)
[2025-04-07] MEDS: SODIUM CHLORIDE 0.9% 400 ML IV ONE (09:45)
[2025-04-07] MEDS: VERAPAMIL 2.5MG/ML INJ 2ML VIAL IV ONE (10:08)
[2025-04-07] MEDS: HEPARIN SODIUM (PORCINE) 5000 UNITS/ML 1ML VIAL ONE (10:08)
[2025-04-07] MEDS: ANGIOMAX 250 MG VIAL IV ONE (10:08)
[2025-04-07] MEDS: LIDOCAINE 2%HCL (LOCAL ANESTH.) INJ 20ML MDV ONE (10:09)
[2025-04-07] MEDS: SODIUM CHL 0.9% 50 ML ONE (10:09)
[2025-04-07] MEDS: VANCOMYCIN 1GM/250ML KIT 250 ML IV ONE (10:40)
[2025-04-07] MEDS: VANCOMYCIN HCL 1000 MG VL ONE (10:40)
--- NOTE | 2025-04-07 10:51 | DVHOP2 ---
Operative Report - 2 Report Details Date: 04/07/25 Preop Diagnosis: Coronary artery disease Postop Diagnosis: No significant CAD Surgeon: Chino Garcia MD Anesthesiologist: Dr. Saunders Anesthesia: General Consent: The patient was informed of the risks and benefits of the procedure. These include but are not limited to complications of anesthesia, postoperative infection, incomplete relief of symptoms, recurrence of symptoms, damage to blood vessels, nerves and tendons, deep venous thrombosis, pulmonary embolism and possible need for repeat surgery in the future. Complications: No complications Estimated Blood Loss: 1 cc Findings: Normal coronaries. Normal left ventricular function. Small brachial artery aneurysm. Normal left ventricular function Indications for Surgery: Chest pain Name of Procedure Performed Left heart catheterization bilateral cine coronary angiography. Left ventriculography Procedure Details Procedure Details: Prior local anesthesia with 2% lidocaine to the right wrist and full informed consent obtained patient was prepped and draped in usual fashion followed by placement of a six Albanian sheath into the radial artery followed by placement of a multipurpose catheter into the right radial artery. 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 We used a soft angled glide to cross it and place the catheter into the right ventricle and right and left coronary ostia. No complications. Hemodynamics: Aortic blood pressure was 110/70. End-diastolic pressure was five. There was no gradient across the aortic valve on pullback. Coronary anatomy: The RCA is large and normal the PDA and posterolateral bra nches are normal. Left main is large and normal. Left anterior descending is large with two diagonals free of significant disease. The circumflex is large with two marginals free of significant disease Ventriculography in the OROZCO projection revealed an EF of about 65% Impression normal left ventricular end-diastolic pressure at rest. Normal ejection fraction. No significant CAD. Small brachial artery aneurysm. It is not hemodynamically significant nor does not require intervention. Recommendations continue medical therapy. Risk factor modification to continue. Condition Good Disposition Still a Patient Date of Service: Apr 07, 2025 Billing Provider: CHINO GARCIA Sr., MD Cardiology Common Codes: 80365-GCLWQIZ INP/OBS CARE (High) Cardiology Procedure Codes: 30319-NXTV HEART CATH W/INTRA INJ CHINO GARCIA Sr., MD Apr 07, 2025 10:51
--- NOTE | 2025-04-07 12:01 | DVHOP2 ---
Operative Report - 2 Report Details Date: 04/07/25 Preop Diagnosis: Chronotropic incompetence Postop Diagnosis: Successful lead revision Surgeon: Chino Garcia MD Anesthesiologist: Dr. Saunders Anesthesia: General Consent: The patient was informed of the risks and benefits of the procedure. These include but are not limited to complications of anesthesia, postoperative infection, incomplete relief of symptoms, recurrence of symptoms, damage to blood vessels, nerves and tendons, deep venous thrombosis, pulmonary embolism and possible need for repeat surgery in the future. Complications: No complications Estimated Blood Loss: 5 cc Findings: Successful lead revision with repositioning of RV lead from apex into interventricular septum Indications for Surgery: Chest pain diaphragmatic stimulation Name of Procedure Performed RV lead revision Procedure Details Procedure Details: Patient under light general anesthesia. Lidocaine was instilled into the left pectoral area incision was made over the left pectoral pocket. Excision of adhesions and removal of the existing generator. Formation of subpectoral pocket and flushed with antibiotic solution. We liberated the atrial and ventricular leads and reposition of the ventricular lead into the high mid septum from the RV apex given diaphragmatic stimulation. Leads were sutured with 0 Ethibond and adequate capture and sensitivities were obtained as will be delineated. The leads were sutured and then the pocket was flushed as well as mentioned. We then connected the leads to the generator. We placed the generator and the leads in the sub pectoral pocket formed previously. This was sutured with 0 Ethibond and 4-0 Vicryl. 4-0 Monocryl was used to close the skin. Patient tolerated the procedure well there were no complications. The atrial and ventricular leads have not changed. A [employer] lead serial number [id number] in the atrium originally placed 02/12/2025 at a capture of 0.9 volts at 0.4 milliseconds P waves of 2.4 mV at 469 Ohms of impedance. A [employer] ventricular lead S 53 serial [id number] with a ventricular th reshold capture of 0.7 volts 0.4 milliseconds a P-wave of 9.6 with an impedance of 742 Ohms of impedance. The pacemaker generator did not change. The settings are at a DDD-MIRANDA mode at a rate of 60/150 with a PVARP of 275 milliseconds. Right atrial sensitivity of 0.5 mV with a RA output of 4 volts at 0.4 milliseconds. RV sensitivity of 2.0 mV with an RV output of 4 volts at 0.4 milliseconds with maximum sensitivity. This was done under fluoroscopic guidance. Patient tolerated the procedure well there were no complications. Patient did experience pacemaker mediated tachycardia for which a PV JOSE A was prolonged. No complications. Patient left the room in good condition. Condition Good Disposition Still a Patient Date of Service: Apr 07, 2025 Billing Provider: CHINO GARCIA Sr., MD Cardiology Common Codes: 91054-VIZROIH INP/OBS CARE (High) Cardiology Procedure Codes: 59407 -PTCA W/STENT PLACEMENT Card. Pacer Implants/Gen [id number]/Replace TTVPM/PACER (Ventricular lead revision/repositioning from apex to mid RV septum.) CHINO GARCIA Sr., MD Apr 07, 2025 12:00
[2025-04-07] MEDS ORDERED: NITROGLYCERIN 0.4 MG SL TAB SL PRN (12:15)
[2025-04-07] MEDS ORDERED: MORPHINE SULFATE INJ 2 MG/ml SYRG IV PRN (12:15)
[2025-04-07] MEDS: ONDANSETRON HCL 4 MG/2 ML VIAL IV ONE (12:15)
[2025-04-07] MEDS: HYDROmorphone HCL 2 MG/ML VL/or syr IV ONE (12:15)
--- NOTE | 2025-04-07 13:46 | DVH ---
INDICATION: POST PACEMAKER REVISION TECHNIQUE: Frontal view of the chest. COMPARISON: XR CHEST 2 VIEW on DOS: 02/22/25, XY CHEST XRAY 1 VIEW on DOS: 02/13/25, XY CHEST XRAY 1 EW on DOS: 02/12/25, XR CHEST 2 VIEW on DOS: 02/08/25, CT CHEST WITHOUT CONTRAST on DOS: 07/18/24 FINDINGS: Dual lead left-sided pacemaker. The heart and mediastinal contours are grossly unremarkable. There i s no evidence of pleural disease. The lungs are clear. The bony structures of the chest are intact without fracture. IMPRESSION: 1. No evidence of acute disease.
[2025-04-07] MEDS: KETOROLAC TROMETH 30 MG/ML 1ML VIAL IV ONE (16:25)
[2025-04-07 17:05] LABS: Hematocrit 41.0 % (36.0-46.0); Hemoglobin 14.0 g/dL (12.2-16.2); Mean Corpuscular Hemoglobin 32.4 pg (28.0-32.0); Mean Corpuscular Volume 94.7 fL (80.0-100.0); Nucleated Red Blood Cells % 0.0 %
[2025-04-07 17:14] LABS: Potassium 3.7 mmol/L (3.5-5.1); Sodium 142 mmol/L (136-145)
[2025-04-07 17:15] LABS: Anion Gap 11 (5-15); Calcium 9.1 mg/dL (8.7-10.4); Carbon Dioxide 24 mmol/L (20-31); Chloride 107 mmol/L (98-107)
[2025-04-07 17:20] LABS: BUN/Creatinine Ratio 7.9 (10.0-20.0)
[2025-04-07 17:21] LABS: Blood Urea Nitrogen 7 mg/dL (9-23); Glucose 110 mg/dL (74-106)
--- NOTE | 2025-04-07 17:29 | ECG ---
[facility] Test Date: 2025-04-07 Test Time: 12:39:55 Pat Name: MACRINA ZAMUDIO Department: Room: [facility]2T B Gender: F School Patrol: NIDIA : 1975 Requested By: CHINO GARCIA Order Number: [id number] Reading MD: Chino Garcia Measurements Intervals [place] Rate: 58 P: 25 MA: 166 QRS: 81 QRSD: 92 T: 38 QT: 474 QTc: 465 Interpretive Statements Electronic ventricular pacemaker Electronically Signed On 04-08-2025 14:39:21 PDT by Chino Garcia Please click the below link to view image of tracing.
[2025-04-07] MEDS ORDERED: HYDROcodone-ACET 10/325MG TAB PO PRN (18:30)
[2025-04-07] MEDS: HYDROmorphone HCL 2 MG/ML VL/or syr IV PRN (19:01)
[2025-04-08] VITALS (9 sets, daily range): BP systolic 107–146; BP diastolic 58–75; PULSE 58–74; RESP 16–19; TEMP 97.6–98.2; O2SAT 94–99
[2025-04-08] MEDS: HYDROmorphone HCL 2 MG/ML VL/or syr IV PRN (02:35)
--- NOTE | 2025-04-08 06:26 | DVH ---
CHEST RADIOGRAPH Indication: s/p pacemaker lead revision Technique: Single frontal view of the chest was obtained COMPARISON: XY CHEST PORTABLE on DOS: 04/07/25, XR CHEST 2 VIEW on DOS: 02/22/25, XY CHEST XRAY 1 VIEW o n DOS: 02/13/25, XY CHEST XRAY 1 VIEW on DOS: 02/12/25, XR CHEST 2 VIEW on DOS: 02/08/25 FINDINGS: Lines and Tubes: None. Left anterior chest wall bipolar cardiac pacing device. Lungs: Clear Pleura: No effusion. No pneumothorax. Cardiomediastinal contours: Unremarkable Bones: Unremarkable IMPRESSION: 1. No radiographic evidence of acute cardiopulmonary abnormality.
[2025-04-08 06:43] LABS: Hematocrit 39.8 % (36.0-46.0); Hemoglobin 13.7 g/dL (12.2-16.2); Mean Corpuscular Hemoglobin 32.0 pg (28.0-32.0); Mean Corpuscular Volume 93.1 fL (80.0-100.0); Nucleated Red Blood Cells % 0.0 %
[2025-04-08 07:06] LABS: Alanine Aminotransferase 18 U/L (7-40); Albumin 3.9 g/dL (3.2-4.8); Alkaline Phosphatase 94 U/L (46-116); Anion Gap 10 (5-15); BUN/Creatinine Ratio 12.2 (10.0-20.0); Bilirubin, Total 0.6 mg/dL (0.2-1.0); Blood Urea Nitrogen 11 mg/dL (9-23); Calcium 9.2 mg/dL (8.7-10.4); Carbon Dioxide 24 mmol/L (20-31); Chloride 103 mmol/L (98-107); Glucose 97 mg/dL (74-106); Potassium 4.2 mmol/L (3.5-5.1); Sodium 137 mmol/L (136-145); Total Protein 6.8 g/dL (5.7-8.2)
[2025-04-08] MEDS: KETOROLAC TROMETH 30 MG/ML 1ML VIAL IV PRN (11:40)
--- NOTE | 2025-04-08 13:57 | DVHINCON2 ---
Date of service: Apr 08, 2025 Reason for Consultation Post pacemaker pain management and medical management History of Present Illness Allison Hoffman is a 49-year-old female with past medical history of hypertension, dysrhythmias, bilateral shoulder surgery, presents to the hospital for pacemaker lead revision. She underwent a successful lead revision by her side show entertainer and postop admitted to the hospital for pain control and pain management. Currently she does complain of pain but says Toradol IV as well as IV Dilaudid is helping. Does not want to take [place] given her nausea. Past Medical History hypertension, dysrhythmias Past Surgical History Status post pacemaker placement/revision, bilateral shoulder surgery, cholecystectomy, right thigh biopsy, hernia repair, hysterectomy, and appendectomy Family History: Colon cancer FH: cancer G8 FATHER (vocal chord cancer, lung cancer, throat cancer, skin cancer, prostate cancer, bone cancer, bladder cancer), FH: ovarian cancer Hypertension G8 MOTHER Allergies: Uncoded Allergies: ADHESIVE TAPE (Allergy, Severe, anaphylaxis, 07/19/24) Home Meds Active Scripts Acetaminophen (Tylenol Childrens) 160 Mg/5 Ml Kendra, 650 MG PO Q6HPRN PRN, #500 ML Prov:ZENY CURRY MD 02/14/25 Reported Medications Multiple Vitamins W/ Minerals (Multiple Vitamin/Minerals) 1 Tab Tab, 1 TAB PO DAILY for SUPPLEMENT 02/08/25 Current Medications Current Medications Medications (Trade) Dose Ordered Sig/Leticia Route PRN Reason Start Time Stop Time Status Last Admin Ketorolac Tromethamine (Toradol Injection) 15 mg Q6HPRN PRN IV MODERATE PAIN (4-6 PAIN SCALE) 04/07/25 16:00 04/12/25 15:59 04/08/25 11:40 Acetaminophen/ Hydrocodone Bitart ([place] 10/325MG Tab) 1 tab Q6HP PRN PO MILD PAIN (1-3 PAIN SCALE) 04/07/25 18:30 Hydromorphone HCl (Dilaudid Injection) 0.5 mg Q8HPRN PRN IV SEVERE PAIN (7-10 PAIN SCALE) 04/07/25 18:30 04/07/25 19:53 DC 04/07/25 19:01 Hydromorphone HCl (Dilaudid Injection) 0.5 mg Q6HPRN PRN IV SEVERE PAIN (7-10 PAIN SCALE) 04/08/25 01:00 04/08/25 09:24 Review of Systems Besides complains of pain and nausea no other complaints. Other review of systems reviewed normal. Vital Signs Vital Signs Date Time Temp Pulse Resp B/P (MAP) Pulse Ox O2 Delivery O2 Flow Rate FiO2 04/08/25 09:24 65 17 110/58 04/08/25 08:30 98.0 99 98.0 04/08/25 08:05 Room Air* 0 21 Physical Exam Comfortable alert awake oriented to history. A HEENT neck supple no JVD regular rate rhythm S1-S2. Lungs fair air movement without rales wheezes poor inspiratory effort. Abdomen soft nontender positive bowel sounds. Extremities no edema positive pulses. Labs/Diagnostic Data Labs Test 04/08/25 06:13 Range/Units White Blood Count 10.4 4.4-10.8 10^3/uL Red Blood Count 4.27 4.0-5.20 10^6/uL Hemoglobin 13.7 12.2-16.2 g/dL Hematocrit 39.8 36.0-46.0 % Mean Corpuscular Volume 93.1 80.0-100.0 fL Mean Corpuscular Hemoglobin 32.0 28.0-32.0 pg Mean Corpuscular Hemoglobin Concent 34.4 32.0-36.0 g/dL Red Cell Distribution Width 12.5 11.8-14.3 % Platelet Count 272 140-450 10^3/uL Mean Platelet Volume 9.5 6.9-10.8 fL Neutrophils (%) (Auto) 84.2 H 37.0-80.0 % Lymphocytes (%) (Auto) 9.5 L 10.0-50.0 % Monocytes (%) (Auto) 6.0 0.0-12.0 % Eosinophils (%) (Auto) 0.1 0.0-7.0 % Basophils (%) (Auto) 0.2 0.0-2.0 % Neutrophils # (Auto) 8.8 H 1.6-8.6 10 ^3/uL Lymphocytes # (Auto) 1.0 0.4-5.4 10 ^3/uL Monocytes # (Auto) 0.6 0-1.3 10 ^3/uL Eosinophils # (Auto) 0 0-0.8 10 ^3/uL Basophils # (Auto) 0 0-0.2 10 ^3/uL Nucleated Red Blood Cells 0.0 % Sodium Level 137 # 136-145 mmol/L Potassium Level 4.2 3.5-5.1 mmol/L Chloride Level 103 98-107 mmol/L Carbon Dioxide Level 24 20-31 mmol/L Anion Gap 10 5-15 Blood Urea Nitrogen 11 9-23 mg/dL Creatinine 0.90 0.550-1.02 mg/dL Glomerular Filtration Rate Calc 78 >90 mL/min BUN/Creatinine Ratio 12.2 10.0-20.0 Serum Glucose 97 74-106 mg/dL Calcium Level 9.2 8.7-10.4 mg/dL Total Bilirubin 0.6 0.2-1.0 mg/dL Aspartate Amino Transferase (AST) 28 13-40 U/L Alanine Aminotransferase (ALT) 18 7-40 U/L Alkaline Phosphatase 94 46-116 U/L Total Protein 6.8 5.7-8.2 g/dL Albumin 3.9 3.2-4.8 g/dL Assessment Continue IV Toradol and IV Dilaudid as needed. Encouraged [place] once her nausea improves. Otherwise continue rest of supportive care and treatment. Encouraged activity ambulation. Incentive spirometry. Further clinical management per clinical course. Discussed with the nurse regarding care plan. Problems(with codes): (1) Pacemaker (2) Musculoskeletal pain (3) Postoperative nausea Plan discussed with: Other ZENY CURRY MD Apr 08, 2025 13:57
[2025-04-08] MEDS: ceFAZolin 1GM/50ML 50 ML IV SCH (16:05)
[2025-04-08] MEDS: FAMOTIDINE 20 MG TAB PO SCH (22:18)
[2025-04-08] MEDS: SENNA 8.6 MG TAB PO SCH (22:18)
[2025-04-09 01:00] VITALS: BP 118/73; PULSE 63; RESP 18; TEMP 97.7; O2SAT 96
[2025-04-09 05:00] VITALS: BP 149/79; PULSE 61; RESP 16; TEMP 97.6; O2SAT 94
[2025-04-09 08:00] VITALS: PULSE 59
[2025-04-09 08:30] VITALS: BP 130/81; PULSE 69; RESP 18; TEMP 98.1; O2SAT 97
[2025-04-09 13:00] VITALS: BP 128/83; PULSE 61; RESP 18; TEMP 97.7; O2SAT 98
[2025-04-09] MEDS ORDERED: HYDR-4798 PO (13:56)
[2025-04-09] MEDS ORDERED: NALO4SPR2 (13:56)
[2025-04-09] MEDS ORDERED: DOXY100C79 PO (13:56)
--- NOTE | 2025-04-09 13:59 | DVHDS2 ---
Discharge Summary Date of Admission Apr 07, 2025 at 12:05 Date of Discharge: Apr 09, 2025 Labs/Diagnostic Data: Laboratory Results Test 04/08/25 06:13 White Blood Count 10.4 10^3/uL (4.4-10.8) Red Blood Count 4.27 10^6/uL (4.0-5.20) Hemoglobin 13.7 g/dL (12.2-16.2) Hematocrit 39.8 % (36.0-46.0) Mean Corpuscular Volume 93.1 fL (80.0-100.0) Mean Corpuscular Hemoglobin 32.0 pg (28.0-32.0) Mean Corpuscular Hemoglobin Concent 34.4 g/dL (32.0-36.0) Red Cell Distribution Width 12.5 % (11.8-14.3) Platelet Count 272 10^3/uL (140-450) Mean Platelet Volume 9.5 fL (6.9-10.8) Neutrophils (%) (Auto) 84.2 % (37.0-80.0) Lymphocytes (%) (Auto) 9.5 % (10.0-50.0) Monocytes (%) (Auto) 6.0 % (0.0-12.0) Eosinophils (%) (Auto) 0.1 % (0.0-7.0) Basophils (%) (Auto) 0.2 % (0.0-2.0) Neutrophils # (Auto) 8.8 10 ^3/uL (1.6-8.6) Lymphocytes # (Auto) 1.0 10 ^3/uL (0.4-5.4) Monocytes # (Auto) 0.6 10 ^3/uL (0-1.3) Eosinophils # (Auto) 0 10 ^3/uL (0-0.8) Basophils # (Auto) 0 10 ^3/uL (0-0.2) Nucleated Red Blood Cells 0.0 % Sodium Level 137 mmol/L (136-145) Potassium Level 4.2 mmol/L (3.5-5.1) Chloride Level 103 mmol/L (98-107) Carbon Dioxide Level 24 mmol/L (20-31) Anion Gap 10 (5-15) Blood Urea Nitrogen 11 mg/dL (9-23) Creatinine 0.90 mg/dL (0.550-1.02) Glomerular Filtration Rate Calc 78 mL/min (>90) BUN/Creatinine Ratio 12.2 (10.0-20.0) Serum Glucose 97 mg/dL (74-106) Calcium Level 9.2 mg/dL (8.7-10.4) Total Bilirubin 0.6 mg/dL (0.2-1.0) Aspartate Amino Transferase (AST) 28 U/L (13-40) Alanine Aminotransferase (ALT) 18 U/L (7-40) Alkaline Phosphatase 94 U/L (46-116) Total Protein 6.8 g/dL (5.7-8.2) Albumin 3.9 g/dL (3.2-4.8) Other Laboratory Tests 04/08/25 06:13 Brief Hx & Hospital Course: This is a 49-year-old female with a prior pacemaker placement with a issues admitted by fuel cell binder for lead revision. She underwent successful revision of her pacemaker lead as well as coronary angiogram. Angiogram did not reveal any severe/significant coronary artery disease. Postop patient pain is controlled. Tolerating diet. She is requesting narcotics to be prescribed for home. Therefore Orma as prescribed and discuss the side effects with the her. Otherwise overall she is clinically stable not having any other issues. Therefore she has been discharged home in stable condition. Patient is advised to follow up with the fuel cell binder next week. She has verbalized understanding of this and agree with the discharge care plan. Consults/Reason for consult Operative Report - 2 Report Details Date: 04/07/25 Preop Diagnosis: Chronotropic incompetence Postop Diagnosis: Successful lead revision Surgeon: Johnson Garcia MD Anesthesiologist: Dr. Saunders Anesthesia: General Consent: The patient was informed of the risks and benefits of the procedure. These include but are not limited to complications of anesthesia, postoperative infection, incomplete relief of symptoms, recurrence of symptoms, damage to blood vessels, nerves and tendons, deep venous thrombosis, pulmonary embolism and possible need for repeat surgery in the future. Complications: No complications Estimated Blood Loss: 5 cc Findings: Successful lead revision with repositioning of RV lead from apex into interventricular septum Indications for Surgery: Chest pain diaphragmatic stimulation Name of Procedure Performed RV lead revision Operations or Procedures Operative Report - 2 Report Details Date: 04/07/25 Preop Diagnosis: Coronary artery disease Postop Diagnosis: No significant CAD Surgeon: Johnson Garcia MD Anesthesiologist: Dr. Saunders Anesthesia: General Consent: The patient was informed of the risks and benefits of the procedure. These include but are not limited to complications of anesthesia, postoperative infection, incomplete relief of symptoms, recurrence of symptoms, damage to blood vessels, nerves and tendons, deep venous thrombosis, pulmonary embolism and possible need for repeat surgery in the future. Complications: No complications Estimated Blood Loss: 1 cc Findings: Normal coronaries. Normal left ventricular function. Small brachial artery aneurysm. Normal left ventricular function Indications for Surgery: Chest pain Name of Procedure Performed Left heart catheterization bilateral cine coronary angiography. Left ventriculography Procedure Details Procedure Details: Prior local anesthesia with 2% lidocaine to the right wrist and full informed consent obtained patient was prepped and draped in usual fashion followed by placement of a six [place] sheath into the radial artery followed by placement of a multipurpose catheter into the right radial artery. 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 We used a soft angled glide to cross it and place the catheter into the right ventricle and right and left coronary ostia. No complications. Hemodynamics: Aortic blood pressure was 110/70. End-diastolic pressure was five. There was no gradient across the aortic valve on pullback. Coronary anatomy: The RCA is large and normal the PDA and posterolateral branches are normal. Left main is large and normal. Left anterior descending is large with two diagonals free of significant disease. The circumflex is large with two marginals free of significant disease Ventriculography in the OROZCO projection revealed an EF of about 65% Impression normal left ventricular end-diastolic pressure at rest. Normal ejection fraction. No significant CAD. Small brachial artery aneurysm. It is not hemodynamically significant nor does not require intervention. Recommendations continue medical therapy. Risk factor modification to continue. Condition Good Condition at Discharge: Stable Final Diagnosis/Problems List Successful lead revision of pacemaker Discharge Disposition: Home Discharge Instruct/Medications Diet: Consistent carbohydrate, Cardiac 2g Na,low cholest Activity: No Restrictions, As Tolerated Activity comment: Do not lift your left arm above shoulder for one week Follow Up/Referral: Dr. Garcia fuel cell binder next week Medications: As prescribed Scheduled Doxycycline (Monohydrate) (Doxycycline), 100 MG PO BID Multiple Vitamins W/ Minerals (Multiple Vitamin/Minerals), 1 TAB PO DAILY, (Reported) Scheduled PRN Acetaminophen (Tylenol Childrens), 650 MG PO Q6HPRN PRN Hydrocodone-Acetaminophen (Hydrocodone Bitartrate/AC 10-325 mg), 1 TAB PO Q6HPRN PRN Naloxone HCl (Narcan), 4 MG NA Q5MINP PRN Discharge Statement: "Patient was advised to return to the ER or call 911 if any headaches, dizziness, shortness of breath, chest pain, abdominal pain, bleeding, fevers, or worsening of medical condition. Patient was counseled about treatment plan, medications, possible side effects, patientverbalized understanding. All questions were answered to the best of my ability. This discharge took greater then 30 minutes in planning, reviewing documentation, counseling the patient, and discussing with other team members." ASSESSMENT ASSESSMENT Assessment Successful lead revision of pacemaker ZENY CURRY MD Apr 09, 2025 13:59
[2025-04-09 15:11] VITALS: PULSE 60; TEMP 36.5
== END 2025-04-09 16:09 | disposition home or self-care (01) | DRG 261 ==
LOC: CATH 07:32 → OVERFLOW 12:05 → TELE-WESTW 15:26
PROVIDERS: ADMIT Internal Medicine; ATTEND Hospitalist
PROC: 02WA3MZ Revision of Cardiac Lead in Heart, Percutaneous Approach (ICD-10-PCS; principal; 2025-04-07)
PROC: 4A023N7 Measurement of Cardiac Sampling and Pressure, Left Heart, Percutaneous Approach (ICD-10-PCS; 2025-04-07)
PROC: B211YZZ Fluoroscopy of Multiple Coronary Arteries using Other Contrast (ICD-10-PCS; 2025-04-07)
PROC: B215YZZ Fluoroscopy of Left Heart using Other Contrast (ICD-10-PCS; 2025-04-07)
DX: R07.89 Other chest pain (principal); I45.89 Other specified conduction disorders; I72.1 Aneurysm of artery of upper extremity; R00.0 Tachycardia, unspecified; I10 Essential (primary) hypertension; Z95.0 Presence of cardiac pacemaker; Z80.0 Family history of malignant neoplasm of digestive organs; Z80.8 Family history of malignant neoplasm of other organs or systems; Z82.49 Family history of ischemic heart disease and other diseases of the circulatory system; Z80.52 Family history of malignant neoplasm of bladder; Z80.41 Family history of malignant neoplasm of ovary; Z80.1 Family history of malignant neoplasm of trachea, bronchus and lung; Z90.710 Acquired absence of both cervix and uterus; Z90.49 Acquired absence of other specified parts of digestive tract; Z88.8 Allergy status to other drugs, medicaments and biological substances
CPT/HCPCS: 33215; 36415; 71045; 80048; 80053; 85025; 93005; 93458; 97110; 97116; 97163; 99152; G0378; J1100; J1885; J2250; J2405; Q9967

== ENCOUNTER 2025-06-16 16:39 | Inpatient (IN) | payer BC, MEDICAID ==
[~2025-06-16] VITALS: Ht 162.6 cm; Wt 63.5 kg
[~2025-06-16 16:39] MED LIST changes: +DOXY100C79 PO; +HYDR-4798 PO; +NALO4SPR2
[2025-06-16] MEDS ORDERED: DOCUSATE SOD 100 MG CAP PO PRN (20:15)
[2025-06-16] MEDS ORDERED: ONDANSETRON HCL 4 MG/2 ML VIAL IV PRN (20:15)
[2025-06-16] MEDS ORDERED: MORPHINE SULFATE INJ 2 MG/ml SYRG IV PRN (20:15)
[2025-06-16] MEDS ORDERED: NITROGLYCERIN 0.4 MG SL TAB SL PRN (20:15)
[2025-06-16] MEDS ORDERED: ACETAMINOPHEN 325 MG TAB PO PRN (20:15)
[2025-06-16] MEDS ORDERED: VANCOMYCIN PER PHARMACY 0 MG IV SCH (20:15)
[2025-06-16 20:16] VITALS: RESP 18
[2025-06-16 21:31] LABS: Hematocrit 37.4 % (36.0-46.0); Hemoglobin 13.2 g/dL (12.2-16.2); Mean Corpuscular Hemoglobin 31.7 pg (28.0-32.0); Mean Corpuscular Volume 90.0 fL (80.0-100.0); Nucleated Red Blood Cells % 0.0 %
[2025-06-16 21:43] LABS: INR 1.04 (0.9-1.15); Prothrombin Time 11.0 sec (9.3-11.8)
[2025-06-16 21:46] LABS: Alanine Aminotransferase 29 U/L (7-40); Albumin 4.3 g/dL (3.2-4.8); Alkaline Phosphatase 100 U/L (46-116); Anion Gap 10 (5-15); BUN/Creatinine Ratio 8.6 (10.0-20.0); Bilirubin, Total 0.4 mg/dL (0.2-1.0); Calcium 9.5 mg/dL (8.7-10.4); Carbon Dioxide 26 mmol/L (20-31); Chloride 106 mmol/L (98-107); Glucose 85 mg/dL (74-106); Sodium 142 mmol/L (136-145); Total Protein 7.0 g/dL (5.7-8.2)
[2025-06-16 21:55] LABS: Blood Urea Nitrogen 9 mg/dL (9-23); Potassium 3.5 mmol/L (3.5-5.1)
[2025-06-16] MEDS ORDERED: VANCOMYCIN 1.25GM/250ML 250 ML IV ONE (22:00)
[2025-06-16] MEDS: VANCOMYCIN 1GM/250ML KIT 250 ML IV ONE (22:32)
[2025-06-16] MEDS: SODIUM CHLORIDE 0.9% 1,000 ML IV SCH (22:32)
[2025-06-16] MEDS: MORPHINE SULFATE 4 MG/ML SYR/VIAL IV PRN (22:35)
[2025-06-17] VITALS (8 sets, daily range): BP systolic 95–129; BP diastolic 55–84; PULSE 64–75; RESP 13–19; TEMP 97.1–98.3; O2SAT 94–100
[2025-06-17] MEDS: diphenhydrAMINE HCL 50 MG/1 ML VL IV ONE (00:41)
[2025-06-17] MEDS: FAMOTIDINE (10MG/ML) 2ML VL IV ONE (00:42)
--- NOTE | 2025-06-17 01:06 | DVHHP2 ---
REX LEGER OPTIONS ADVISOR 06/17/25 0106: History of Present Illness Reason for Visit: Surgical evaluation History of Present Illness 49-year-old female with past medical history of dysrhythmias, hypertension, pacemaker placement presents for surgical evaluation and surgical debridement of a poorly healing chest wound. Patient previously had a pacemaker placed on April 07, 2025, however incision has not healed appropriately. Patient was directly admitted at the request of Cardiology for surgery in the a.m.. At this time the patient denies any fevers, chills, malaise, dizziness, shortness of breath, chest pain, palpitations, nausea, vomiting, purulent discharge from the wound. Cardiovascular: Other (Pacemaker) Smoke: No ALCOHOL: none Drugs: None Lives: with Family Review of Systems Constitutional: No: Fever, Chills, Sweats, Weakness, Malaise, Other Eyes: No: Pain, Vision change, Conjunctivae inflammation, Eyelid inflammation, Other, Redness ENT: No: Ear pain, Ear discharge, Nose pain, Nose discharge, Nose congestion, Mouth pain, Mouth swelling, Throat pain, Throat swelling, Other Respiratory: No: Cough, Dry, Shortness of breath, SOB with excertion, Wheezing, Hemoptysis, Pleuritic Pain, Sputum, Wheezing, Other Cardiovascular: No: Chest Pain, Palpitations, Orthopnea, Paroxysmal Noc. Dyspnea, Edema, Lt Headedness, Other Gastrointestinal: No: Nausea, Vomiting, Abdominal Pain, Diarrhea, Constipation, Melena, Hematochezia, Other Genitourinary: No Dysuria, No Frequency, No Incontinence, No Hematuria, No Retention, No Other Musculoskeletal: No: other, neck pain, shoulder pain, arm pain, back pain, hand pain, leg pain, foot pain Skin: Other (Open wound to left upper chest); No: Rash, Lesions, Jaundice, Bruising Neurological: No: Weakness, Numbness, Incoordination, Change in speech, Confusion, Seizures, Other Allergies: Coded Allergies: Vancomycin (Verified Allergy, Unknown, 06/17/25) Uncoded Allergies: ADHESIVE TAPE (Allergy, Severe, anaphylaxis, 07/19/24) Medications Current Medications Medications Dose Ordered Sig/Leticia Route Start Time Stop Time Status Last Admin Dose Admin Sodium Chloride 1,000 ml @ 75 mls/hr [id number] IV 06/16/25 20:15 06/16/25 22:32 75 MLS/HR Docusate Sodium 100 mg BIDPRN PRN PO 06/16/25 20:15 Acetaminophen 650 mg Q6HP PRN PO 06/16/25 20:15 Acetaminophen/ Hydrocodone Bitart 1 tab Q6HPRN PRN PO 06/16/25 20:15 Ondansetron HCl 4 mg Q4HP PRN IV 06/16/25 20:15 Morphine Sulfate 2 mg Q4HPRN PRN IV 06/16/25 20:15 06/16/25 22:35 2 MG Nitroglycerin 0.4 mg Q5MINP PRN SL 06/16/25 20:15 Morphine Sulfate 2 mg Q30M PRN IV 06/16/25 20:15 Ceftriaxone Sodium 50 ml @ 100 mls/hr DAILY@09 IV 06/16/25 20:29 06/16/25 21:59 100 MLS/HR Vancomycin HCl 0 ml @ 0 mls/hr PER PHARMACY IV 06/16/25 20:15 Exam Vital Signs Vital Signs Date Time Temp Pulse Resp B/P (MAP) Pulse Ox O2 Delivery O2 Flow Rate FiO2 06/16/25 23:05 62 17 118/79 General Appearance: Alert, Oriented X3, Cooperative, No acute distress HEENT: Atraumatic, PERRLA, EOMI Respiratory: Clear to auscultation, Normal air movement Cardiovascular: Regular rate, Normal S1, Normal S2 Abdominal: Normal bowel sounds, Soft, No tenderness Extremities: No edema, Normal pulses Skin: No significant lesion (Open wound left upper chest. ) Neuro: Normal gait, Normal speech, Strength at 5/5 X4 ext Psych/Mental Status: Mental status NL, Mood NL Labs/Xrays Labs Test 06/16/25 21:00 Range/Units White Blood Count 6.2 4.4-10.8 10^3/uL Red Blood Count 4.16 4.0-5.20 10^6/uL Hemoglobin 13.2 12.2-16.2 g/dL Hematocrit 37.4 36.0-46.0 % Mean Corpuscular Volume 90.0 80.0-100.0 fL Mean Corpuscular Hemoglobin 31.7 28.0-32.0 pg Mean Corpuscular Hemoglobin Concent 35.2 32.0-36.0 g/dL Red Cell Distribution Width 12.4 11.8-14.3 % Platelet Count 258 140-450 10^3/uL Mean Platelet Volume 9.4 6.9-10.8 fL Neutrophils (%) (Auto) 52.2 37.0-80.0 % Lymphocytes (%) (Auto) 36.6 10.0-50.0 % Monocytes (%) (Auto) 8.9 0.0-12.0 % Eosinophils (%) (Auto) 1.7 0.0-7.0 % Basophils (%) (Auto) 0.6 0.0-2.0 % Neutrophils # (Auto) 3.2 1.6-8.6 10 ^3/uL Lymphocytes # (Auto) 2.3 0.4-5.4 10 ^3/uL Monocytes # (Auto) 0.6 0-1.3 10 ^3/uL Eosinophils # (Auto) 0.1 0-0.8 10 ^3/uL Basophils # (Auto) 0 0-0.2 10 ^3/uL Nucleated Red Blood Cells 0.0 % Prothrombin Time 11.0 9.3-11.8 sec Prothrombin Time INR 1.04 0.9-1.15 Sodium Level 142 136-145 mmol/L Potassium Level 3.5 3.5-5.1 mmol/L Chloride Level 106 98-107 mmol/L Carbon Dioxide Level 26 20-31 mmol/L Anion Gap 10 5-15 Blood Urea Nitrogen 9 9-23 mg/dL Creatinine 1.05 H 0.550-1.02 mg/dL Glomerular Filtration Rate Calc 65 >90 mL/min BUN/Creatinine Ratio 8.6 L 10.0-20.0 Serum Glucose 85 74-106 mg/dL Calcium Level 9.5 8.7-10.4 mg/dL Total Bilirubin 0.4 0.2-1.0 mg/dL Aspartate Amino Transferase (AST) 37 13-40 U/L Alanine Aminotransferase (ALT) 29 7-40 U/L Alkaline Phosphatase 100 46-116 U/L Total Protein 7.0 5.7-8.2 g/dL Albumin 4.3 3.2-4.8 g/dL SEPSIS Sepsis Screen Physician Orders Admit (06/16/25 20:09) Code Status (06/16/25 20:09) Vital Signs .PER UNIT PROTOCOL (06/16/25 20:09) Review Orders With Adm. (06/16/25 20:) Encourage Activity As Tolerate (06/16/25 20:) Sodium Chloride 0.9% (06/16/25 20:15) Oxygen By Face Mask (06/16/25:) Docusate Sodium Capsule (Colace Capsule) (06/16/25 20:15) Acetaminophen Tablet (Tylenol Tablet) (06/16/25 20:) Notify Md Of Changes From Base (06/16/25 20:) Advance Directive (06/16/25:) Chest Two Views Routine (06/17/25 04:00) Basic Metabolic Panel (06/17/25 05:00) Basic Metabolic Panel (06/18/25 05:00) Basic Metabolic Panel (06/19/25 05:00) Basic Metabolic Panel (06/20/25 05:00) Complete Blood Count (06/17/25 05:00) Complete Blood Count (06/18/25 05:00) Complete Blood Count (06/19/25 05:00) Complete Blood Count (06/20/25 05:00) Blood Culture (06/16/25 20:) Patient Condition (06/16/25 20:) Allergies (06/16/25:) Hydrocodone-Acet 5/325mg Tab ([place] 5/32 (06/16/25 20:15) Ondansetron Hcl (Zofran) (06/16/25 20:15) Sequential Compression Device (06/16/25 ) Nitroglycerin Sublingual (Ntrostat Subli (06/16/25 20:) Morphine Sulfate Injection (06/16/25 20:) Stat Ekg For Chest Pain (06/16/25 20:) Notify Md Of Changes From Base (06/16/25 20:) Research Test Engine Evaluator For 24 Hours (06/16/25 20:) Emergency Dysrhythmia Protocol (06/16/25:) Rhythm Strips Once Every Shift (06/16/25 20:) Oxygen By Nasal Cannula (06/16/25 20:) * Cardiology Consult (06/16/25 20:) Vancomycin Per Pharmacy (06/16/25 20:) Electrocardigram (06/16/25:) Npo (Nothing By Mouth) Diet (06/17/25 Breakfast) Wound Culture W/ Gs (06/16/25 20:09) Communication Order (06/16/25 20:09) Morphine Sulfate Injection (06/16/25 20:15) Ceftriaxone 1gm/50ml (Rocephin) (06/16/25 20:29) Vital Signs Date Time Temp Pulse Resp B/P (MAP) Pulse Ox O2 Delivery O2 Flow Rate FiO2 06/16/25 23:05 62 17 118/79 06/16/25 22:35 69 18 122/88 Laboratory Tests Test 06/16/25 21:00 White Blood Count 6.2 10^3/uL (4.4-10.8) Medications Medications Dose Ordered Sig/Leticia Route Start Time Stop Time Status Last Admin Dose Admin Ceftriaxone Sodium 50 ml @ 100 mls/hr DAILY@09 IV 06/16/25 20:29 06/16/25 21:59 100 MLS/HR Dexamethasone Sodium Phosphate 10 mg ONCE ONCE IV 06/17/25 00:30 06/17/25 00:34 DC 06/17/25 00:41 10 MG Diphenhydramine HCl 50 mg ONCE ONCE IV 06/17/25 00:30 06/17/25 00:34 DC 06/17/25 00:41 50 MG Famotidine 20 mg ONCE ONCE IV 06/17/25 00:30 06/17/25 00:34 DC 06/17/25 00:42 20 MG Morphine Sulfate 2 mg Q4HPRN PRN IV 06/16/25 20:15 06/16/25 22:35 2 MG Sodium Chloride 1,000 ml @ 75 mls/hr [id number] IV 06/16/25 20:15 06/16/25 22:32 75 MLS/HR Vancomycin HCl 250 ml @ 250 mls/hr ONCE ONCE IV 06/16/25 22:00 06/16/25 22:59 DC 06/16/25 22:32 250 MLS/HR Assessment/Plan Assessment/Plan Nonhealing surgical wound Pacemaker in place History of dysrhythmias Plan Admit telemetry Cardiology consult. Plan for surgical debridement in a.m. NPO diet CBC, BMP, PT/INR, CXR, EKG ordered Wound culture IV ABX IVF DVT PPX SCDs Plan discussed with: Patient My Orders Orders - REX LEGER NP Procedure Category Date Status Time Admit ADMIT 06/16/25 Transmitted 20:09 Code Status CODE 06/16/25 Transmitted 20:09 Vital Signs XIOMARA 06/16/25 In Process 20:09 Review Orders With XIOMARA 06/16/25 In Process Adm. 20:09 Encourage Activity As XIOMARA 06/16/25 In Process Tolerate 20:09 Sodium Chloride 0.9% PHA 06/16/25 In Process 20:15 Oxygen By Face Mask RT 06/16/25 Transmitted 20:09 Docusate Sodium PHA 06/16/25 In Process Capsule (Colace 20:15 Acetaminophen Tablet PHA 06/16/25 In Process (Tylenol Tablet) 20:15 Notify Of Changes XIOMARA 06/16/25 In Process From Base 20:09 Advance Directive XIOMARA 06/16/25 In Process 20:09 Chest Two Views XY 06/17/25 Logged Routine 04:00 Basic Metabolic Panel LAB 06/17/25 Logged 05:00 Basic Metabolic Panel LAB 06/18/25 Verified 05:00 Basic Metabolic Panel LAB 06/19/25 Verified 05:00 Basic Metabolic Panel LAB 06/20/25 Verified 05:00 Complete Blood Count LAB 06/17/25 Logged 05:00 Complete Blood Count LAB 06/18/25 Verified 05:00 Complete Blood Count LAB 06/19/25 Verified 05:00 Complete Blood Count LAB 06/20/25 Verified 05:00 Blood Culture ANNELIESE 06/16/25 In Process 20:09 Patient Condition ORDERS 06/16/25 Transmitted 20:09 Allergies XIOMARA 06/16/25 In Process 20:09 Hydrocodone-Acet PHA 06/16/25 In Process 5/325mg Tab ([place] 20:15 Ondansetron Hcl PHA 06/16/25 In Process (Zofran) 20:15 Sequential XIOMARA 06/16/25 In Process Compression Device Nitroglycerin PHA 06/16/25 In Process Sublingual (Ntrostat 20:15 Morphine Sulfate PHA 06/16/25 In Process Injection 20:15 Stat Ekg For Chest XIOMARA 06/16/25 In Process Pain 20:09 Notify Of Changes XIOMARA 06/16/25 In Process From Base 20:09 Research Test Engine Evaluator For XIOMARA 06/16/25 In Process 24 Hours 20:09 Emergency Dysrhythmia XIOMARA 06/16/25 In Process Protocol 20:09 Rhythm Strips Once XIOMARA 06/16/25 In Process Every Shift 20:09 Oxygen By Nasal RT 06/16/25 Transmitted Cannula 20:09 * Cardiology Consult CONS 06/16/25 Transmitted 20:09 Vancomycin Per PHA 06/16/25 In Process Pharmacy 20:15 Electrocardigram EKG 06/16/25 Logged 20:09 Npo (Nothing By DIET 06/17/25 Transmitted Mouth) Diet Breakfast Wound Culture W/ Gs ANNELIESE 06/16/25 In Process 20:09 Communication Order ORDERS 06/16/25 Transmitted 20:09 Morphine Sulfate PHA 06/16/25 In Process Injection 20:15 Ceftriaxone 1gm/50ml PHA 06/16/25 In Process (Rocephin) 20:29 Date of Service: Jun 17, 2025 Billing Provider: ZENY CURRY MD Common Visit Codes: NOT BILLABLE ZENY CURRY MD 06/17/25 1201: Review of Systems Allergies: Coded Allergies: Vancomycin (Verified Allergy, Unknown, 06/17/25) Uncoded Allergies: ADHESIVE TAPE (Allergy, Severe, anaphylaxis, 07/19/24) Additional Comments Additional Comments Additional Comments Patient is seen and evaluated by me earlier today and discussed with the Dr. Garcia Cardiology. Patient is seen and evaluated and admitted by nurse practitioner sales recruiter. I agree with his evaluation, documentation, assessment and care plan as outlined. REX LEGER OPTIONS ADVISOR Jun 17, 2025 01:06 ZENY CURRY MD Jun 17, 2025 12:01
--- NOTE | 2025-06-17 05:46 | DVH ---
MEDICAL RECORDS NUMBER: [id number] PROCEDURE: XY CHEST TWO VIEWS ROUTINE DATE: 06/17/2025 05:19 AM HISTORY: pre surgical Views:1 COMPARISON: XR CHEST 2 VIEW on DOS: 02/22/25, XR CHEST 2 VIEW on DOS: 02/08/25, CR CHEST 2 VIEW on DOS: 07/09/24 FINDINGS/IMPRESSION: Lungs: The lungs are clear. Mediastinum: Mediastinal structures appear unremarkable.A LEFT-sided pacing device is noted. No pneumothorax is seen. Skeletal: The skeletal structures appear unremarkable.
[2025-06-17 06:56] LABS: Hematocrit 41.7 % (36.0-46.0); Hemoglobin 14.5 g/dL (12.2-16.2); Mean Corpuscular Hemoglobin 31.7 pg (28.0-32.0); Mean Corpuscular Volume 91.5 fL (80.0-100.0); Nucleated Red Blood Cells % 0.0 %
[2025-06-17 07:10] LABS: Chloride 107 mmol/L (98-107); Sodium 141 mmol/L (136-145)
[2025-06-17 07:11] LABS: Anion Gap 10 (5-15); Calcium 9.3 mg/dL (8.7-10.4); Carbon Dioxide 24 mmol/L (20-31)
[2025-06-17 07:15] LABS: Potassium 3.4 mmol/L (3.5-5.1)
[2025-06-17 07:16] LABS: BUN/Creatinine Ratio 8.2 (10.0-20.0)
[2025-06-17] MEDS ORDERED: fentaNYL CITRATE 100 MCG/2 ML VL ONE (07:19)
[2025-06-17] MEDS ORDERED: MIDAZOLAM HCL 2MG/2ML 2ml VIAL (1mg/ml) ONE (07:19)
[2025-06-17] MEDS ORDERED: MEPERIDINE HCL (25 MG/ML) 1ML VIAL ONE (07:19)
[2025-06-17 07:25] LABS: Blood Urea Nitrogen 8 mg/dL (9-23); Glucose 126 mg/dL (74-106)
[2025-06-17] MEDS ORDERED: PROPOFOL 10 MG/ML 20 ML IV ONE (07:45)
[2025-06-17] MEDS: ceFAZolin 1GM VL ONE (07:49)
[2025-06-17] MEDS: LIDOCAINE HCL 2 %PF INJ 10ML AMP IJ ONE (07:49)
[2025-06-17] MEDS ORDERED: hydrALAZINE HCL 20 MG/ML VL IV PRN (08:30)
[2025-06-17] MEDS ORDERED: MIDAZOLAM HCL 2MG/2ML 2ml VIAL (1mg/ml) IV PRN (08:30)
[2025-06-17] MEDS ORDERED: ONDANSETRON HCL 4 MG/2 ML VIAL IV PRN (08:30)
[2025-06-17] MEDS ORDERED: KETOROLAC TROMETH 30 MG/ML 1ML VIAL IV ONE (08:30)
[2025-06-17] MEDS: HYDROmorphone HCL 2 MG/ML VL/or syr IV PRN (08:55)
--- NOTE | 2025-06-17 08:55 | DVHOP2 ---
Operative Report - 2 Report Details Date: 06/17/25 Preop Diagnosis: Infected pacemaker incision Postop Diagnosis: Successful debridement of pacemaker incision and superficial pocket Surgeon: Chino Garcia MD Drug Abuse Counselor: Glen LI Anesthesiologist: Dr. Madrid Anesthesia: Mac, Local Consent: The patient was informed of the risks and benefits of the procedure. These include but are not limited to complications of anesthesia, postoperative infection, incomplete relief of symptoms, recurrence of symptoms, damage to blood vessels, nerves and tendons, deep venous thrombosis, pulmonary embolism and possible need for repeat surgery in the future. Complications: No complications Estimated Blood Loss: Five cc Findings: Minor induration and pocket suppuration Indications for Surgery: Recurrent drainage from edge of pacemaker incision indicative of superficial pocket infection. Name of Procedure Performed Debridement of superficial pacemaker pocket Procedure Details Procedure Details: Prior full informed consent obtained the patient was prepped and draped in the usual fashion and heavy sedation by anesthesia as well as local anesthetic with 2% lidocaine to the left pectoral area. We identified the site of pocket suppuration and an extensive debridement of the surrounding tissue and cleaning with antibiotic solution and removal of all surrounding suture matter as well as the indurated surrounding edges of the existing incision were debrided. The pocket was closed subsequent to copious irrigation with antibiotic filled solution. Cauterizing all bleeders we then proceeded to close the pocket with 0 Prolene with mattress suture. Patient tolerated procedure well there were no complications. There did not appear to be any significant infection of the actual pocket below the fascia affecting the existing pacemaker. There was no fluctuance or induration and the tissues looked healthy and intact. Specimen: Debridement of indurated and infected tissue was disposed of Condition Good Disposition Still a Patient Date of Service: Jun 17, 2025 Billing Provider: CHINO GARCIA Sr., MD Cardiology Common Codes: [id number] INP/OBS CARE (High) (Surgical debridement of infected pacemaker pocket) CHINO GARCIA Sr., MD Jun 17, 2025 08:55
[2025-06-17] MEDS: BUPIVACAINE HCL 0.25% P/F 10 ML VIAL ONE (08:56)
[2025-06-17] MEDS: LIDOCAINE 1% HCL (LOCAL ANESTH.) INJ 20ML MDV ONE (08:57)
[2025-06-17] MEDS: ceFAZolin 2 GM/D5W50ml 50 ML IV ONE (08:57)
[2025-06-17] MEDS: LIDOCAINE W/ EPINEPHRINE 1% 20ML VIAL ONE (08:57)
[2025-06-17] MEDS: HYDROmorphone HCL 2 MG/ML VL/or syr ONE (09:34)
[2025-06-17] MEDS: MORPHINE SULFATE 4 MG/ML SYR/VIAL IV PRN (09:49)
--- NOTE | 2025-06-17 10:52 | DVHCONRES ---
Date Seen: Jun 17, 2025 Resident Creating Document: AMBER HUMPHREY RESIDENT History of Present Illness 49-year-old female with past medical history of dysrhythmias, hypertension, pacemaker placement presents for surgical evaluation and surgical debridement of a poorly healing chest wound. Patient previously had a pacemaker placed on April 07, 2025, however incision has not healed appropriately. Patient was directly admitted at the request of Cardiology for surgery in the a.m.. At this time the patient denies any fevers, chills, malaise, dizziness, shortness of breath, chest pain, palpitations, nausea, vomiting, purulent discharge from the wound. 06/17/2025-patient underwent successful debridement of pacemaker incision and superficial pocket by Dr. Garcia. Per Dr. Garcia, there did not appear to be any significant infection of the actual pocket below the fascia affecting the existing pacemaker. There was no fluctuance or induration and the tissues looked healthy and intact. Denies taking any home medications Family History: Colon cancer FH: cancer G8 FATHER (vocal chord cancer, lung cancer, throat cancer, skin cancer, prostate cancer, bone cancer, bladder cancer), FH: ovarian cancer Hypertension G8 MOTHER Allergies: Coded Allergies: Vancomycin (Verified Allergy, Unknown, 06/17/25) Uncoded Allergies: ADHESIVE TAPE (Allergy, Severe, anaphylaxis, 07/19/24) Home Meds Active Scripts Doxycycline (Monohydrate) (Doxycycline) 100 Mg Cap, 100 MG PO BID, #10 CAP Prov:ZENY CURRY MD 04/09/25 Naloxone HCl (Narcan) 4 Mg/0.1 Ml Spr, 4 MG NA Q5MINP PRN, #1 SPRAY Prov:ZENY CURRY MD 04/09/25 Hydrocodone-Acetaminophen (Hydrocodone Bitartrate/AC 10-325 mg) 1 Tab Tab, 1 TAB PO Q6HPRN PRN, #10 TAB Prov:ZENY CURRY MD 04/09/25 Acetaminophen (Tylenol Childrens) 160 Mg/5 Ml Kendra, 650 MG PO Q6HPRN PRN, #500 ML Prov:ZENY CURRY MD 02/14/25 Reported Medications Multiple Vitamins W/ Minerals (Multiple Vitamin/Minerals) 1 Tab Tab, 1 TAB PO DAILY for SUPPLEMENT 02/08/25 Current Medications Current Medications Medications (Trade) Dose Ordered Sig/Leticia Route PRN Reason Start Time Stop Time Status Last Admin Sodium Chloride 1,000 ml @ 75 mls/hr [id number] IV 06/16/25 20:15 06/17/25 10:21 Docusate Sodium (Colace Capsule) 100 mg BIDPRN PRN PO FOR CONSTIPATION 06/16/25 20:15 Acetaminophen (Tylenol Tablet) 650 mg Q6HP PRN PO PAIN SCALE 1-3 OR TEMP>100.4 06/16/25 20:15 Acetaminophen/ Hydrocodone Bitart ([place] 5/325MG Tab) 1 tab Q6HPRN PRN PO MODERATE PAIN (4-6 PAIN SCALE) 06/16/25 20:15 Ondansetron HCl (Zofran) 4 mg Q4HP PRN IV NAUSEA / VOMITING 06/16/25 20:15 Morphine Sulfate 2 mg Q4HPRN PRN IV SEVERE PAIN (7-10 PAIN SCALE) 06/16/25 20:15 06/16/25 22:35 Nitroglycerin (Ntrostat Sublingual) 0.4 mg Q5MINP PRN SL FOR CHEST PAIN 06/16/25 20:15 Morphine Sulfate 2 mg Q30M PRN IV FOR CHEST PAIN 06/16/25 20:15 Ceftriaxone Sodium 50 ml @ 100 mls/hr DAILY@09 IV 06/16/25 20:29 06/17/25 10:20 Vancomycin HCl 0 ml @ 0 mls/hr PER PHARMACY IV 06/16/25 20:15 06/17/25 01:17 DC Ondansetron HCl (Zofran) 4 mg ONCE PRN IV NAUSEA / VOMITING 06/17/25 08:30 06/17/25 08:57 DC Hydralazine HCl (Apresoline Injection) 5 mg Q10M PRN IV SBP>160 06/17/25 08:30 06/17/25 09:21 DC Morphine Sulfate 2 mg Q2HPRN PRN IV BREAKTHROUGH PAIN (7-10) 06/17/25 08:30 06/17/25 08:57 DC 06/17/25 09:49 Midazolam HCl (Versed Injection) 1 mg Q10M PRN IV ANXIETY 06/17/25 08:30 06/17/25 09:11 DC Ephedrine Sulfate (ePHEDrine SULFATE) 10 mg Q10M PRN IV SBP LESS THAN 90 06/17/25 08:30 06/17/25 09:11 DC Hydromorphone HCl (Dilaudid Injection) 0.5 mg Q10M PRN IV SEVERE PAIN (7-10 PAIN SCALE) 06/17/25 08:30 06/17/25 09:11 DC 06/17/25 09:32 Vancomycin HCl 100 ml @ 200 mls/hr Q8H IV 06/17/25 10:00 Vital Signs Vital Signs Date Time Temp Pulse Resp B/P (MAP) Pulse Ox O2 Delivery O2 Flow Rate FiO2 06/17/25 10:00 64 12 103/66 (78) 98 06/17/25 08:55 Nasal Cannula 2.0 95 06/17/25 08:25 97.4 97.4 Physical Exam Patient lying in bed, in no acute distress General: Well-built, afebrile, palor, mucosae are moist Cardiovascular: Regular S1 and S2. No murmurs, gallops or rubs. No JVD elevation. No pedal edema Respiratory: Normal B/L air entry on room air. Clear lung sounds on auscultation Abdomen: Soft, nontender, nondistended, normoactive bowel sounds, no rebound tenderness, no organomegaly, no masses Genitourinary: Deferred MSK/skin: Mobilizes 4 limbs. Skin is dry and warm Neurological: No motor, no sensitive deficits, normal speech. Pupils are isocoric and reactive. Psych/Mental Status: A/Ox3 Labs/Diagnostic Data Labs Test 06/17/25 05:50 06/16/25 21:00 Range/Units White Blood Count 6.7 4.4-10.8 10^3/uL Red Blood Count 4.56 4.0-5.20 10^6/uL Hemoglobin 14.5 12.2-16.2 g/dL Hematocrit 41.7 # 36.0-46.0 % Mean Corpuscular Volume 91.5 80.0-100.0 fL Mean Corpuscular Hemoglobin 31.7 28.0-32.0 pg Mean Corpuscular Hemoglobin Concent 34.7 32.0-36.0 g/dL Red Cell Distribution Width 12.8 11.8-14.3 % Platelet Count 288 140-450 10^3/uL Mean Platelet Volume 9.5 6.9-10.8 fL Neutrophils (%) (Auto) 88.9 H 37.0-80.0 % Lymphocytes (%) (Auto) 9.3 L 10.0-50.0 % Monocytes (%) (Auto) 1.5 0.0-12.0 % Eosinophils (%) (Auto) 0.1 0.0-7.0 % Basophils (%) (Auto) 0.2 0.0-2.0 % Neutrophils # (Auto) 6.0 1.6-8.6 10 ^3/uL Lymphocytes # (Auto) 0.6 0.4-5.4 10 ^3/uL Monocytes # (Auto) 0.1 0-1.3 10 ^3/uL Eosinophils # (Auto) 0 0-0.8 10 ^3/uL Basophils # (Auto) 0 0-0.2 10 ^3/uL Nucleated Red Blood Cells 0.0 % Sodium Level 141 136-145 mmol/L Potassium Level 3.4 L 3.5-5.1 mmol/L Chloride Level 107 98-107 mmol/L Carbon Dioxide Level 24 20-31 mmol/L Anion Gap 10 5-15 Blood Urea Nitrogen 8 L 9-23 mg/dL Creatinine 0.97 0.550-1.02 mg/dL Glomerular Filtration Rate Calc 72 >90 mL/min BUN/Creatinine Ratio 8.2 L 10.0-20.0 Serum Glucose 126 H 74-106 mg/dL Calcium Level 9.3 8.7-10.4 mg/dL Beta HCG, Quantitative 2.1 1.5-4.2 mIU/mL Prothrombin Time 11.0 9.3-11.8 sec Prothrombin Time INR 1.04 0.9-1.15 Total Bilirubin 0.4 0.2-1.0 mg/dL Aspartate Amino Transferase (AST) 37 13-40 U/L Alanine Aminotransferase (ALT) 29 7-40 U/L Alkaline Phosphatase 100 46-116 U/L Total Protein 7.0 5.7-8.2 g/dL Albumin 4.3 3.2-4.8 g/dL Assessment Infected pacemaker incision status post debridement of pacemaker incision and superficial pocket 06/17 History of similar pacemaker site infection 1 year back Symptomatic bradycardia status post pacemaker placement Hypokalemia Fluid culture resulting in Enterobacter cloacae sensitive to meropenem, levofloxacin 07/23/2024 Plan/Recommendation 06/17/2025-patient underwent successful debridement of pacemaker incision and superficial pocket by Dr. Garcia. Per Dr. Garcia, there did not appear to be any significant infection of the actual pocket below the fascia affecting the existing pacemaker. There was no fluctuance or induration and the tissues looked healthy and intact. Recommend Infectious Disease consultation, for IV antibiotics. Patient would likely benefit from MSSA and MRSA coverage for 2 weeks. Correct underlying electrolyte disorder, K greater than 4, Mag greater than 2 We will continue to follow up Cardiac diet advised Thank you for consulting Cardiology Case discussed with Dr. Garcia Plan discussed with: Patient Visit Coding Cardiology RES Date of Service: Jun 17, 2025 Billing Provider: CHINO GARCIA Sr., MD Cardiology Common Codes: CONSULT ONLY AMBER HUMPHREY RESIDENT Jun 17, 2025 10:52
[2025-06-17] MEDS: VANCOMYCIN 500mg/100mL 100 ML IV SCH (11:26)
[2025-06-17] MEDS: POTASSIUM CHL 20MEQ/100ML 100 ML IV SCH (11:48)
[2025-06-17] MEDS: HYDROcodone-ACET 5/325MG TAB PO PRN (23:57)
[2025-06-18] VITALS (8 sets, daily range): BP systolic 94–114; BP diastolic 64–87; PULSE 55–74; RESP 17–19; TEMP 97–98.5; O2SAT 93–98
--- NOTE | 2025-06-18 06:39 | DVHINCON2 ---
Date of service: Jun 17, 2025 Family History: Colon cancer FH: cancer G8 FATHER (vocal chord cancer, lung cancer, throat cancer, skin cancer, prostate cancer, bone cancer, bladder cancer), FH: ovarian cancer Hypertension G8 MOTHER Allergies: Coded Allergies: Vancomycin (Verified Allergy, Unknown, 06/17/25) Uncoded Allergies: ADHESIVE TAPE (Allergy, Severe, anaphylaxis, 07/19/24) Home Meds Active Scripts Doxycycline (Monohydrate) (Doxycycline) 100 Mg Cap, 100 MG PO BID, #10 CAP Prov:ZENY CURRY MD 04/09/25 Naloxone HCl (Narcan) 4 Mg/0.1 Ml Spr, 4 MG NA Q5MINP PRN, #1 SPRAY Prov:ZENY CURRY MD 04/09/25 Hydrocodone-Acetaminophen (Hydrocodone Bitartrate/AC 10-325 mg) 1 Tab Tab, 1 TAB PO Q6HPRN PRN, #10 TAB Prov:ZENY CURRY MD 04/09/25 Acetaminophen (Tylenol Childrens) 160 Mg/5 Ml Kendra, 650 MG PO Q6HPRN PRN, #500 ML Prov:ZENY CURRY MD 02/14/25 Reported Medications Multiple Vitamins W/ Minerals (Multiple Vitamin/Minerals) 1 Tab Tab, 1 TAB PO DAILY for SUPPLEMENT 02/08/25 Current Medications Current Medications Medications (Trade) Dose Ordered Sig/Leitcia Route PRN Reason Start Time Stop Time Status Last Admin Ondansetron HCl (Zofran) 4 mg ONCE PRN IV NAUSEA / VOMITING 06/17/25 08:30 06/17/25 08:57 DC Hydralazine HCl (Apresoline Injection) 5 mg Q10M PRN IV SBP>160 06/17/25 08:30 06/17/25 09:21 DC Morphine Sulfate 2 mg Q2HPRN PRN IV BREAKTHROUGH PAIN (7-10) 06/17/25 08:30 06/17/25 08:57 DC 06/17/25 09:49 Midazolam HCl (Versed Injection) 1 mg Q10M PRN IV ANXIETY 06/17/25 08:30 06/17/25 09:11 DC Ephedrine Sulfate (ePHEDrine SULFATE) 10 mg Q10M PRN IV SBP LESS THAN 90 06/17/25 08:30 11/13/25 09:11 DC Hydromorphone HCl (Dilaudid Injection) 0.5 mg Q10M PRN IV SEVERE PAIN (7-10 PAIN SCALE) 06/17/25 08:30 06/17/25 09:11 DC 06/17/25 09:32 Vancomycin HCl 100 ml @ 200 mls/hr Q8H IV 06/17/25 10:00 06/17/25 12:02 DC Potassium Chloride 100 ml @ 50 mls/hr Q2H IV 06/17/25 11:00 06/17/25 14:59 DC 06/17/25 11:48 Vital Signs Vital Signs Date Time Temp Pulse Resp B/P (MAP) Pulse Ox O2 Delivery O2 Flow Rate FiO2 06/18/25 04:46 97.0 57 17 94/64 (74) 93 97.0 06/17/25 20:00 Room Air* 0 21 Labs/Diagnostic Data Labs Test 06/17/25 05:50 06/16/25 21:00 Range/Units White Blood Count 6.7 4.4-10.8 10^3/uL Red Blood Count 4.56 4.0-5.20 10^6/uL Hemoglobin 14.5 12.2-16.2 g/dL Hematocrit 41.7 # 36.0-46.0 % Mean Corpuscular Volume 91.5 80.0-100.0 fL Mean Corpuscular Hemoglobin 31.7 28.0-32.0 pg Mean Corpuscular Hemoglobin Concent 34.7 32.0-36.0 g/dL Red Cell Distribution Width 12.8 11.8-14.3 % Platelet Count 288 140-450 10^3/uL Mean Platelet Volume 9.5 6.9-10.8 fL Neutrophils (%) (Auto) 88.9 H 37.0-80.0 % Lymphocytes (%) (Auto) 9.3 L 10.0-50.0 % Monocytes (%) (Auto) 1.5 0.0-12.0 % Eosinophils (%) (Auto) 0.1 0.0-7.0 % Basophils (%) (Auto) 0.2 0.0-2.0 % Neutrophils # (Auto) 6.0 1.6-8.6 10 ^3/uL Lymphocytes # (Auto) 0.6 0.4-5.4 10 ^3/uL Monocytes # (Auto) 0.1 0-1.3 10 ^3/uL Eosinophils # (Auto) 0 0-0.8 10 ^3/uL Basophils # (Auto) 0 0-0.2 10 ^3/uL Nucleated Red Blood Cells 0.0 % Sodium Level 141 136-145 mmol/L Potassium Level 3.4 L 3.5-5.1 mmol/L Chloride Level 107 98-107 mmol/L Carbon Dioxide Level 24 20-31 mmol/L Anion Gap 10 5-15 Blood Urea Nitrogen 8 L 9-23 mg/dL Creatinine 0.97 0.550-1.02 mg/dL Glomerular Filtration Rate Calc 72 >90 mL/min BUN/Creatinine Ratio 8.2 L 10.0-20.0 Serum Glucose 126 H 74-106 mg/dL Calcium Level 9.3 8.7-10.4 mg/dL Magnesium Level 1.9 1.6-2.6 mg/dL Beta HCG, Quantitative 2.1 1.5-4.2 mIU/mL Prothrombin Time 11.0 9.3-11.8 sec Prothrombin Time INR 1.04 0.9-1.15 Total Bilirubin 0.4 0.2-1.0 mg/dL Aspartate Amino Transferase (AST) 37 13-40 U/L Alanine Aminotransferase (ALT) 29 7-40 U/L Alkaline Phosphatase 100 46-116 U/L Total Protein 7.0 5.7-8.2 g/dL Albumin 4.3 3.2-4.8 g/dL Microbiology Date/Time Source Procedure Growth Status 06/16/25 21:10 Blood Blood Culture - Preliminary NO GROWTH AFTER 24 HOURS OF INCUBATION. Resulted Problems(with codes): (1) Infection of pacemaker pocket (2) Pacemaker (3) Allergic reaction (4) Cellulitis of chest wall Plan/Recommendation ASSESSMENT AND PLAN: ID Problem List: -Recurrent pacemaker pocket infection (current episode; prior pocket infection with Enterobacter) -Cardiac implantable electronic device (CIED) with multiple lead revisions (most recent 04/08/2025) -Status post incision and debridement of infected pacemaker pocket on 06/17/2025 with intraoperative cultures pending (few gram-positive cocci, few gram-positive mallory reported) -Hypertension -Dyslipidemia -Adhesive tape allergy; poor tolerance of midline and PICC lines historically Assessment This is a 49 y.o. female with hypertension and dyslipidemia, s/p original pacemaker placement approximately one year ago with multiple subsequent lead revisions, who presents with a recurrent pacemaker pocket infection. Most recent lead revision occurred 04/08/2025. She underwent surgical incision and debridement of the pacemaker pocket on 06/17/2025 with cultures obtained. Early culture reporting notes few gram-positive cocci and few gram-positive mallory; blood cultures show no growth to date. Prior organism at the same site was Enterobacter, suggesting the current episode is likely a new infection. Given recurrent infection with a retained device, biofilm-associated infection is a concern with attendant risks of bacteremia, endocarditis, and lead involvement. Vitals and initial labs are stable (WBC 8.7; platelets 253; sodium 142; BUN 7; creatinine 0.89). Plan: -Antimicrobial therapy: -Initiate/continue IV antibiotic therapy tailored to the susceptibilities of the gram-positive organism once finalized; plan for a minimum treatment duration of approximately 4 weeks, per standard for CIED pocket infection after I\&D when hardware remains in place. -Consider adjunctive oral rifampin if the organism and medication profile allow (pending susceptibilities and interaction review). -Monitor culture results (operative and blood) and adjust regimen accordingly. -Vascular access: -Given adhesive tape allergy and poor tolerance of prior midline/PICC, consider midline versus central venous catheter depending on final antibiotic selection and dwell requirements; use adhesive alternatives and securement strategies mindful of tape allergy. -Procedural follow-up: -Monitor wound closely post-I\&D; at the time of surgery, no fluctuance or induration was noted post-debridement. -Laboratory/monitoring: -Serial clinical assessments for fever, bacteremia, and signs of endocarditis or lead infection. -Follow-up blood cultures as clinically indicated. -Follow-up: -Infectious Diseases follow-up in 4 weeks, with close interval monitoring thereafter given multiple reinfections at the same site. -Activity/work: -Patient is not excluded from returning to work as long as IV antibiotics and access remain functional and she has no procedure- or therapy-related contraindications (per discussion documented). Isolation Precautions: standard Assessment and plan were discussed with the patient as written above. Plan is subject to change pending incorporation of new diagnostics. Updates may be added as an addendum. Thank you for the consult. ID will continue to follow. Please contact Infectious Disease for any questions or concerns. Anila Cates M.D. [facility] \ History: The patient's chart and available medications/labs were reviewed; the patient was seen and examined. History obtained from: Not specified in transcript. Allison Rodriguez is a 49 y.o. female with a history of hypertension and dyslipidemia who presents with recurrent pacemaker pocket infection. She had an original pacemaker placed about one year ago with multiple subsequent revisions. Most recent lead revision occurred 04/08/2025. On 06/17/2025, she underwent incision and debridement of the infected pocket with cultures obtained. On 04/07/2025, a cardiac catheterization was performed followed by lead revision with RV lead repositioned from apex to interventricular septum. On 06/17/2025, incision and debridement of the infected pacemaker pocket were performed; no fluctuance or induration was noted post-operatively. Early culture reporting indicates few gram-positive cocci and few gram-positive mallory. Blood cultures show no growth to date. Review of Systems: A complete ROS was not provided in the transcript. No additional ROS details discussed. Past Medical History: -Hypertension -Dyslipidemia Past Surgical History: -Original pacemaker placement ~1 year ago; multiple pacemaker lead revisions (most recent 04/08/2025) -Incision and debridement of infected pacemaker pocket (06/17/2025) -Bilateral shoulder surgeries -Cholecystectomy -Right thyroid biopsy -Appendectomy -Hysterectomy (mentioned; wording/type unclear in transcript) Home Medications: -Tylenol (acetaminophen) at home; dose/frequency not specified -No antiarrhythmics reported Allergies: -Multiple adhesive tapes (reported allergy/intolerance) -Historical poor tolerance of midline and PICC lines (tolerance issue) Family History: -Father: multiple cancers reported, including lung, throat, skin, prostate, bone, bladder; metastatic disease; unknown primary; colon cancer -Family history of ovarian cancer -Mother: hypertension Social History: -Not provided in transcript Objective: Vital Signs on Arrival: -Temp: 98 (unit not specified) -Pulse: 65 -Resp: 18 -BP: 130/80 -SpO2: Not clearly stated (dictated as 1797% on room air) Most Recent Vital Signs: -Not provided beyond initial set Admission Weight: -Not provided in transcript -BMI: Not provided in transcript Physical Exam: General: NAD Neck: Supple. No masses. HEENT: PERRL. Normal lids and conjunctiva. Moist mucous membranes. Oropharynx without lesions, exudates or excessive erythema. Normal appearance of the external aspects of the nose and ears. Heart: Regular rhythm, normal rate. No murmur. No lower extremity edema. Lungs: Normal respiratory effort. Clear to auscultation bilaterally. No wheezes. No crackles. Abdomen: Soft. Non-tender. Non-distended. No masses or abdominal hernia. Msk: No digital cyanosis. Normal strength and tone in all 4 limbs Skin: Warm and dry, no rashes. Neuro: Alert. No facial droop or slurred speech. Extra-ocular movements intact. Sensation intact to soft touch in all 4 limbs. Psych: Appropriate mood. Full affect. Oriented to person, place, time, and situation. Lines: -Not provided in transcript Diagnostic Studies: Available diagnostic studies were reviewed. Significant results below. -Hematology/Chemistry: -WBC: 8.7 -Platelets: 253 -Sodium: 142 -BUN: 7 -Creatinine: 0.89 -Other values: Not provided in transcript -Microbiology: -Operative pocket cultures (06/17/2025): few gram-positive cocci; few gram- positive mallory (final speciation/susceptibilities pending) -Blood cultures: no growth to date -Procedures: -04/07/2025: Cardiac catheterization followed by RV lead revision (repositioned from apex to interventricular septum) -06/17/2025: Incision and debridement of infected pacemaker pocket; no fluctuance or induration noted post-operatively Pertinent Imaging: -Statement in transcript: Radiographic evidence of acute cardiopulmonary abnormality. (Modality/date not specified; no imaging report details provided.) Isolation Precautions: -Standard Plan discussed with: Patient ANILA CATES MD Jun 18, 2025 06:39
--- NOTE | 2025-06-18 06:40 | DVHPN2 ---
Consult Progress Note Objective vital signs Vital Sign Date Time Temp Pulse Resp B/P (MAP) Pulse Ox O2 Delivery O2 Flow Rate FiO2 06/18/25 04:46 97.0 57 17 94/64 (74) 93 97.0 06/17/25 20:00 Room Air* 0 21 Total Intake and Output 06/17/25 06/17/25 06/18/25 15:00 23:00 07:00 Intake Total 150 ml 640 ml Balance 150 ml 640 ml medications Current Medications Medications Dose Ordered Sig/Leticia Route Start Time Stop Time Status Last Admin Dose Admin Sodium Chloride 1,000 ml @ 75 mls/hr [id number] IV 06/16/25 20:15 06/17/25 10:21 75 MLS/HR Docusate Sodium 100 mg BIDPRN PRN PO 06/16/25 20:15 Acetaminophen 650 mg Q6HP PRN PO 06/16/25 20:15 Acetaminophen/ Hydrocodone Bitart 1 tab Q6HPRN PRN PO 06/16/25 20:15 06/17/25 23:57 1 TAB Ondansetron HCl 4 mg Q4HP PRN IV 06/16/25 20:15 Morphine Sulfate 2 mg Q4HPRN PRN IV 06/16/25 20:15 06/18/25 03:21 2 MG Nitroglycerin 0.4 mg Q5MINP PRN SL 06/16/25 20:15 Morphine Sulfate 2 mg Q30M PRN IV 06/16/25 20:15 Ceftriaxone Sodium 50 ml @ 100 mls/hr DAILY@09 IV 06/16/25 20:29 06/17/25 10:20 100 MLS/HR laboratory and microbiology Laboratory Tests 06/17/25 05:50 Test 06/17/25 05:50 Range/Units Serum Glucose 126 H 74-106 mg/dL ANILA BUENROSTRO MD Jun 18, 2025 06:40
[2025-06-18 07:20] LABS: Hematocrit 37.2 % (36.0-46.0); Hemoglobin 12.6 g/dL (12.2-16.2); Mean Corpuscular Hemoglobin 31.2 pg (28.0-32.0); Mean Corpuscular Volume 91.9 fL (80.0-100.0); Nucleated Red Blood Cells % 0.1 %
[2025-06-18 07:22] LABS: Anion Gap 10 (5-15); Carbon Dioxide 26 mmol/L (20-31); Chloride 105 mmol/L (98-107); Potassium 4.0 mmol/L (3.5-5.1); Sodium 141 mmol/L (136-145)
[2025-06-18 07:24] LABS: Calcium 8.9 mg/dL (8.7-10.4)
[2025-06-18 07:28] LABS: BUN/Creatinine Ratio 9.6 (10.0-20.0)
[2025-06-18 07:30] LABS: Blood Urea Nitrogen 8 mg/dL (9-23); Glucose 108 mg/dL (74-106)
[2025-06-18] MEDS: diphenhydrAMINE HCL 50 MG/1 ML VL IV PRN (09:24)
--- NOTE | 2025-06-18 14:23 | DVHPNRES ---
Progress Note Date Seen: Jun 18, 2025 Resident Creating Document: ALEKSANDER GUNTER RESIDENT Has the PT tested + for MRSA If YES, has PT been informed?: No Medical Necessity Reason Pt with a Central, PICC or Fol: No Subjective Review of Systems 49-year-old female with past medical history of dysrhythmias, hypertension, pacemaker placement presents for surgical evaluation and surgical debridement of a poorly healing chest wound. Patient previously had a pacemaker placed on April 07, 2025, however incision has not healed appropriately. Patient was directly admitted at the request of Cardiology for surgery in the a.m.. At this time the patient denies any fevers, chills, malaise, dizziness, shortness of breath, chest pain, palpitations, nausea, vomiting, purulent discharge from the wound. 06/17/2025-patient underwent successful debridement of pacemaker incision and superficial pocket by Dr. Garcia. Per Dr. Garcia, there did not appear to be any significant infection of the actual pocket below the fascia affecting the existing pacemaker. There was no fluctuance or induration and the tissues looked healthy and intact. Denies taking any home medications 06/18/25: wbc wnl, no fevers, normal BP and HR, per Dr Garcia: patient should continue IV AB at home, pending ID indications on which one and the duration of it, also patient already has an appt with Dr Garcia on SaturdayJun 28 10: 45, no need of further interventions per cardiology team in this admission Objective vital signs Vital Sign Date Time Temp Pulse Resp B/P (MAP) Pulse Ox O2 Delivery O2 Flow Rate FiO2 06/18/25 12:51 59 16 108/70 06/18/25 09:00 97.8 97 97.8 06/18/25 08:00 Room Air* 0 21 Total Intake and Output 06/17/25 06/17/25 06/18/25 15:00 23:00 07:00 Intake Total 150 ml 640 ml Balance 150 ml 640 ml medications Current Medications Medications Dose Ordered Sig/Leticia Route Start Time Stop Time Status Last Admin Dose Admin Sodium Chloride 1,000 ml @ 75 mls/hr [id number] IV 06/16/25 20:15 06/18/25 11:30 75 MLS/HR Docusate Sodium 100 mg BIDPRN PRN PO 06/16/25 20:15 Acetaminophen 650 mg Q6HP PRN PO 06/16/25 20:15 Acetaminophen/ Hydrocodone Bitart 1 tab Q6HPRN PRN PO 06/16/25 20:15 06/17/25 23:57 1 TAB Ondansetron HCl 4 mg Q4HP PRN IV 06/16/25 20:15 Morphine Sulfate 2 mg Q4HPRN PRN IV 06/16/25 20:15 06/18/25 12:21 2 MG Nitroglycerin 0.4 mg Q5MINP PRN SL 06/16/25 20:15 Morphine Sulfate 2 mg Q30M PRN IV 06/16/25 20:15 Ceftriaxone Sodium 50 ml @ 100 mls/hr DAILY@09 IV 06/16/25 20:29 06/18/25 08:54 100 MLS/HR Diphenhydramine HCl 25 mg Q8HR PRN IV 06/18/25 09:30 06/18/25 09:24 25 MG Examination Patient lying in bed, in no acute distress General: Well-built, afebrile, palor, mucosae are moist Cardiovascular: pocket looks fine, no discharge, normal S1 S2 Respiratory: Normal B/L air entry on room air. Clear lung sounds on auscultation Abdomen: Soft, nontender, nondistended, normoactive bowel sounds, no rebound tenderness, no organomegaly, no masses Genitourinary: Deferred MSK/skin: Mobilizes 4 limbs. Skin is dry and warm Neurological: No motor, no sensitive deficits, normal speech. Pupils are isocoric and reactive. Psych/Mental Status: A/Ox3 laboratory and microbiology Laboratory Tests 06/18/25 05:45 Test 06/18/25 05:45 Range/Units Serum Glucose 108 H 74-106 mg/dL Microbiology Date/Time Source Procedure Growth Status 06/16/25 21:30 Chest Gram Stain - Final Resulted 06/16/25 21:30 Chest Wound Culture - Preliminary Resulted 06/16/25 21:10 Blood Blood Culture - Preliminary NO GROWTH AFTER 24 HOURS OF INCUBATION. 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 Garcia. Per Dr. Garcia, there did not appear to be any significant infection of the actual pocket below the fascia affecting the existing pacemaker. There was no fluctuance or induration and the tissues looked healthy and intact. Recommend Infectious Disease consultation, for IV antibiotics. Patient would likely benefit from MSSA and MRSA coverage for 2 weeks. Correct underlying electrolyte disorder, K greater than 4, Mag greater than 2 06/18/25: wbc wnl, no fevers, normal BP and HR, per Dr Garcia: patient should continue IV AB at home, pending ID indications on which one and the duration of it, also patient already has an appt with Dr Garcia on SaturdayJun 28 10: 45, no need of further interventions per cardiology team in this admission, we will sign off of this case Case discussed with Dr. Garcia Plan discussed with: Patient, Other (rn) Visit Coding Cardiology RES Date of Service: Jun 18, 2025 Billing Provider: CHINO GARCIA Sr., MD, MARIA RESIDENT Jun 18, 2025 14:23
--- NOTE | 2025-06-18 14:46 | DVHPN2 ---
Progress Note - Dictate Date Seen: Jun 18, 2025 Medical Necessity Reason Pt with a Central, PICC or Fol: No Subjective Patient has complaints of itching secondary to adhesive tape. Requesting IV Benadryl. Wound cultures results are still pending. Anxious to go home. vital signs Vital Sign Date Time Temp Pulse Resp B/P (MAP) Pulse Ox O2 Delivery O2 Flow Rate FiO2 06/18/25 12:51 59 16 108/70 06/18/25 09:00 97.8 97 97.8 06/18/25 08:00 Room Air* 0 21 Total Intake and Output 06/17/25 06/17/25 06/18/25 15:00 23:00 07:00 Intake Total 150 ml 640 ml Balance 150 ml 640 ml medications Current Medications Medications Dose Ordered Sig/Leticia Route Start Time Stop Time Status Last Admin Dose Admin Sodium Chloride 1,000 ml @ 75 mls/hr [id number] IV 06/16/25 20:15 06/18/25 11:30 75 MLS/HR Docusate Sodium 100 mg BIDPRN PRN PO 06/16/25 20:15 Acetaminophen 650 mg Q6HP PRN PO 06/16/25 20:15 Acetaminophen/ Hydrocodone Bitart 1 tab Q6HPRN PRN PO 06/16/25 20:15 06/17/25 23:57 1 TAB Ondansetron HCl 4 mg Q4HP PRN IV 06/16/25 20:15 Morphine Sulfate 2 mg Q4HPRN PRN IV 06/16/25 20:15 06/18/25 12:21 2 MG Nitroglycerin 0.4 mg Q5MINP PRN SL 06/16/25 20:15 Morphine Sulfate 2 mg Q30M PRN IV 06/16/25 20:15 Ceftriaxone Sodium 50 ml @ 100 mls/hr DAILY@09 IV 06/16/25 20:29 06/18/25 08:54 100 MLS/HR Diphenhydramine HCl 25 mg Q8HR PRN IV 06/18/25 09:30 06/18/25 09:24 25 MG objective Comfortable in bed. Complains of generalized itching. HEENT neck supple no JVD. Heart regular rate and rhythm S1-S2. Lungs fair air movement without rales wheezes. Abdomen soft positive bowel sounds. Extremities no edema. laboratory and microbiology Laboratory Tests 06/18/25 05:45 Test 06/18/25 05:45 Range/Units Serum Glucose 108 H 74-106 mg/dL Assessment/Plan Await wound culture results to decide whether she needs IV antibiotics versus oral antibiotics. This is discussed with the patient at bedside along with the nurse at bedside. Meantime continue current antibiotics and IV Benadryl and pain medications as she is on. I will also add either Zyrtec or Pinky for allergic reaction. Pending recommendations from Infectious Disease doctor Darryn. Problems(with codes): (1) Allergic reaction (2) Cellulitis of chest wall (3) Pacemaker Plan discussed with: Patient ZENY CURRY MD Jun 18, 2025 14:46
[2025-06-18] MEDS: hydrOXYzine HCL 10 MG TAB PO SCH (21:12)
--- NOTE | 2025-06-18 23:49 | DVHPN2 ---
Consult Progress Note Date Seen: Jun 18, 2025 Subjective Patient reports: Feels better (tolerating ceftriaxone) Objective vital signs Vital Sign Date Time Temp Pulse Resp B/P (MAP) Pulse Ox O2 Delivery O2 Flow Rate FiO2 06/18/25 21:13 62 17 114/87 06/18/25 21:00 98.5 96 98.5 06/18/25 20:00 Room Air* 0 21 Total Intake and Output 06/17/25 06/17/25 06/18/25 15:00 23:00 07:00 Intake Total 150 ml 640 ml Balance 150 ml 640 ml medications Current Medications Medications Dose Ordered Sig/Leticia Route Start Time Stop Time Status Last Admin Dose Admin Sodium Chloride 1,000 ml @ 75 mls/hr [id number] IV 06/16/25 20:15 06/18/25 11:30 75 MLS/HR Docusate Sodium 100 mg BIDPRN PRN PO 06/16/25 20:15 Acetaminophen 650 mg Q6HP PRN PO 06/16/25 20:15 Acetaminophen/ Hydrocodone Bitart 1 tab Q6HPRN PRN PO 06/16/25 20:15 06/17/25 23:57 1 TAB Ondansetron HCl 4 mg Q4HP PRN IV 06/16/25 20:15 Morphine Sulfate 2 mg Q4HPRN PRN IV 06/16/25 20:15 06/18/25 21:13 2 MG Nitroglycerin 0.4 mg Q5MINP PRN SL 06/16/25 20:15 Morphine Sulfate 2 mg Q30M PRN IV 06/16/25 20:15 Ceftriaxone Sodium 50 ml @ 100 mls/hr DAILY@09 IV 06/16/25 20:29 06/18/25 08:54 100 MLS/HR Diphenhydramine HCl 25 mg Q8HR PRN IV 06/18/25 09:30 06/18/25 21:13 25 MG Hydroxyzine HCl 10 mg TID PO 06/18/25 22:00 06/18/25 21:12 10 MG laboratory and microbiology Laboratory Tests 06/18/25 05:45 Test 06/18/25 05:45 Range/Units Serum Glucose 108 H 74-106 mg/dL Problem List/Assessment/Plan Problems(with codes): (1) Infection of pacemaker pocket (2) Allergic reaction (3) Cellulitis of chest wall (4) Pacemaker Problem List/Assessment/Plan ASSESSMENT AND PLAN: ID Problem List: -Recurrent pacemaker pocket infection (current episode; prior pocket infection with Enterobacter) -Cardiac implantable electronic device (CIED) with multiple lead revisions (most recent 04/08/2025) -Status post incision and debridement of infected pacemaker pocket on 06/17/2025 with intraoperative cultures pending (few gram-positive cocci, few gram-positive mallory reported) -Hypertension -Dyslipidemia -Adhesive tape allergy; poor tolerance of midline and PICC lines historically Assessment This is a 49 y.o. female with hypertension and dyslipidemia, s/p original pacemaker placement approximately one year ago with multiple subsequent lead revisions, who presents with a recurrent pacemaker pocket infection. Most recent lead revision occurred 04/08/2025. She underwent surgical incision and debridement of the pacemaker pocket on 06/17/2025 with cultures obtained. Early culture reporting notes few gram-positive cocci and few gram-positive mallory; blood cultures show no growth to date. Prior organism at the same site was Enterobacter, suggesting the current episode is likely a new infection. Given recurrent infection with a retained device, biofilm-associated infection is a concern with attendant risks of bacteremia, endocarditis, and lead involvement. Vitals and initial labs are stable (WBC 8.7; platelets 253; sodium 142; BUN 7; creatinine 0.89). Plan: -Antimicrobial therapy: -Initiate/continue IV antibiotic therapy tailored to the susceptibilities of the gram-positive organism once finalized; plan for a minimum treatment duration of approximately 4 weeks, per standard for CIED pocket infection after I\&D when hardware remains in place. -Consider adjunctive oral rifampin if the organism and medication profile allow (pending susceptibilities and interaction review). -Monitor culture results (operative and blood) and adjust regimen accordingly. -Vascular access: -Given adhesive tape allergy and poor tolerance of prior midline/PICC, consider midline versus central venous catheter depending on final antibiotic selection and dwell requirements; use adhesive alternatives and securement strategies mindful of tape allergy. -Procedural follow-up: -Monitor wound closely post-I\&D; at the time of surgery, no fluctuance or induration was noted post-debridement. -Laboratory/monitoring: -Serial clinical assessments for fever, bacteremia, and signs of endocarditis or lead infection. -Follow-up blood cultures as clinically indicated. -Follow-up: -Infectious Diseases follow-up in 4 weeks, with close interval monitoring thereafter given multiple reinfections at the same site. -Activity/work: -Patient is not excluded from returning to work as long as IV antibiotics and access remain functional and she has no procedure- or therapy-related contraindications (per discussion documented). Isolation Precautions: standard Assessment and plan were discussed with the patient as written above. Plan is subject to change pending incorporation of new diagnostics. Updates may be added as an addendum. Thank you for the consult. ID will continue to follow. Please contact Infectious Disease for any questions or concerns. Anila Cates M.D. [facility] Teams: [email or web address] \ Physical Exam: General: NAD Neck: Supple. No masses. HEENT: PERRL. Normal lids and conjunctiva. Moist mucous membranes. Oropharynx without lesions, exudates or excessive erythema. Normal appearance of the external aspects of the nose and ears. Heart: Regular rhythm, normal rate. No murmur. No lower extremity edema. Lungs: Normal respiratory effort. Clear to auscultation bilaterally. No wheezes. No crackles. Abdomen: Soft. Non-tender. Non-distended. No masses or abdominal hernia. Msk: No digital cyanosis. Normal strength and tone in all 4 limbs Skin: Warm and dry, no rashes. Neuro: Alert. No facial droop or slurred speech. Extra-ocular movements intact. Sensation intact to soft touch in all 4 limbs. Psych: Appropriate mood. Full affect. Oriented to person, place, time, and situation. Plan discussed with: Patient ANILA CATES MD Jun 18, 2025 23:49
[2025-06-19] VITALS (8 sets, daily range): BP systolic 111–145; BP diastolic 64–96; PULSE 55–68; RESP 16–19; TEMP 98–99.6; O2SAT 95–97
[2025-06-19 05:40] LABS: Hematocrit 41.1 % (36.0-46.0); Hemoglobin 13.6 g/dL (12.2-16.2); Mean Corpuscular Hemoglobin 30.9 pg (28.0-32.0); Mean Corpuscular Volume 93.4 fL (80.0-100.0); Nucleated Red Blood Cells % 0.1 %
[2025-06-19 05:44] LABS: Chloride 106 mmol/L (98-107); Potassium 3.9 mmol/L (3.5-5.1); Sodium 142 mmol/L (136-145)
[2025-06-19 05:45] LABS: Anion Gap 5 (5-15); Carbon Dioxide 31 mmol/L (20-31)
[2025-06-19 05:46] LABS: Calcium 9.2 mg/dL (8.7-10.4)
[2025-06-19 05:50] LABS: BUN/Creatinine Ratio 7.8 (10.0-20.0); Glucose 90 mg/dL (74-106)
[2025-06-19 05:54] LABS: Blood Urea Nitrogen 7 mg/dL (9-23)
--- NOTE | 2025-06-19 15:11 | DVHPN2 ---
Progress Note - Dictate Date Seen: Jun 19, 2025 Has the PT tested + for MRSA If YES, has PT been informed?: No Medical Necessity Reason Pt with a Central, PICC or Fol: No Subjective Patient continued to request IV Benadryl and IV morphine. I have talked with the patient regarding dependence and advised to cut down as much as possible. Meantime she is waiting for PICC line placement for IV antibiotics per recommendations from Infectious Disease doctor Darryn. vital signs Vital Sign Date Time Temp Pulse Resp B/P (MAP) Pulse Ox O2 Delivery O2 Flow Rate FiO2 06/19/25 13:00 98.4 55 18 111/78 (89) 95 98.4 06/19/25 08:00 Room Air* 0 21 Total Intake and Output 06/18/25 06/18/25 06/19/25 15:00 23:00 07:00 Intake Total 1075 ml 640 ml Balance 1075 ml 640 ml medications Current Medications Medications Dose Ordered Sig/Leticia Route Start Time Stop Time Status Last Admin Dose Admin Docusate Sodium 100 mg BIDPRN PRN PO 06/16/25 20:15 Acetaminophen 650 mg Q6HP PRN PO 06/16/25 20:15 Acetaminophen/ Hydrocodone Bitart 1 tab Q6HPRN PRN PO 06/16/25 20:15 06/17/25 23:57 1 TAB Ondansetron HCl 4 mg Q4HP PRN IV 06/16/25 20:15 Morphine Sulfate 2 mg Q4HPRN PRN IV 06/16/25 20:15 06/19/25 11:28 2 MG Nitroglycerin 0.4 mg Q5MINP PRN SL 06/16/25 20:15 Morphine Sulfate 2 mg Q30M PRN IV 06/16/25 20:15 Ceftriaxone Sodium 50 ml @ 100 mls/hr DAILY@09 IV 06/16/25 20:29 06/19/25 08:40 100 MLS/HR Diphenhydramine HCl 25 mg Q8HR PRN IV 06/18/25 09:30 06/19/25 08:40 25 MG Hydroxyzine HCl 10 mg TID PO 06/18/25 22:00 06/19/25 05:00 10 MG objective Comfortable in bed. HEENT neck supple no JVD. Heart regular rate and rhythm S1-S2. Lungs fair air movement without rales wheezes. Abdomen soft positive bowel sounds. Extremities no edema. laboratory and microbiology Laboratory Tests 06/19/25 05:07 Test 06/19/25 05:07 Range/Units Serum Glucose 90 74-106 mg/dL Assessment/Plan Wound culture preliminary results growing coagulase negative organisms. Apparently susceptibilities are not routinely done on this. We will wait for Infectious Disease recommendations for type of antibiotics and duration with a PICC line. PICC line will be placed tomorrow due to they are not available today. Meantime continue current antibiotic and supportive care and treatment as she is on. Follow clinical management per clinical course and recommendations from the Infectious Disease. Discussed with the patient as well as nurse at bedside regarding her care plan. Problems(with codes): (1) Cellulitis of chest wall (2) Allergic reaction (3) Pacemaker (4) Infection of pacemaker pocket Plan discussed with: Patient ZENY CURRY MD Jun 19, 2025 15:11
[2025-06-20] VITALS (8 sets, daily range): BP systolic 96–133; BP diastolic 67–97; PULSE 56–78; RESP 17–18; TEMP 97.7–98.9; O2SAT 94–100
[2025-06-20] MEDS: rifAMPin 300 MG CAP PO SCH (11:51)
[2025-06-20] MEDS: LINEZOLID 600MG TABLET PO SCH ×2 (12:00→12:24)
--- NOTE | 2025-06-20 12:00 | DVHPN2 ---
Consult Progress Note Objective vital signs Vital Sign Date Time Temp Pulse Resp B/P (MAP) Pulse Ox O2 Delivery O2 Flow Rate FiO2 06/20/25 09:50 58 17 133/97 06/20/25 08:47 98.9 97 98.9 06/19/25 20:00 Room Air* 0 21 Total Intake and Output 06/19/25 06/19/25 06/20/25 15:00 23:00 07:00 Intake Total 1200 ml 1200 ml Balance 1200 ml 1200 ml medications Current Medications Medications Dose Ordered Sig/Leticia Route Start Time Stop Time Status Last Admin Dose Admin Docusate Sodium 100 mg BIDPRN PRN PO 06/16/25 20:15 Acetaminophen 650 mg Q6HP PRN PO 06/16/25 20:15 Acetaminophen/ Hydrocodone Bitart 1 tab Q6HPRN PRN PO 06/16/25 20:15 06/17/25 23:57 1 TAB Ondansetron HCl 4 mg Q4HP PRN IV 06/16/25 20:15 Morphine Sulfate 2 mg Q4HPRN PRN IV 06/16/25 20:15 06/20/25 09:50 2 MG Nitroglycerin 0.4 mg Q5MINP PRN SL 06/16/25 20:15 Morphine Sulfate 2 mg Q30M PRN IV 06/16/25 20:15 Diphenhydramine HCl 25 mg Q8HR PRN IV 06/18/25 09:30 06/20/25 09:39 25 MG Hydroxyzine HCl 10 mg TID PO 06/18/25 22:00 06/20/25 05:07 10 MG Rifampin 300 mg BID PO 06/20/25 11:51 Linezolid 600 mg BID PO 06/20/25 12:00 laboratory and microbiology Laboratory Tests 06/19/25 05:07 Test 06/19/25 05:07 Range/Units Serum Glucose 90 74-106 mg/dL Problem List/Assessment/Plan Problem List/Assessment/Plan ASSESSMENT AND PLAN: ID Problem List: -Recurrent pacemaker pocket infection (current episode; prior pocket infection with Enterobacter) -Cardiac implantable electronic device (CIED) with multiple lead revisions (most recent 04/08/2025) -Status post incision and debridement of infected pacemaker pocket on 06/17/2025 with intraoperative cultures pending (few gram-positive cocci, few gram-positive mallory reported) -Hypertension -Dyslipidemia -Adhesive tape allergy; poor tolerance of midline and PICC lines historically Assessment This is a 49 y.o. female with hypertension and dyslipidemia, s/p original pacemaker placement approximately one year ago with multiple subsequent lead revisions, who presents with a recurrent pacemaker pocket infection. Most recent lead revision occurred 04/08/2025. She underwent surgical incision and debridement of the pacemaker pocket on 06/17/2025 with cultures obtained. Early culture reporting notes few gram-positive cocci and few gram-positive mallory; blood cultures show no growth to date. Prior organism at the same site was Enterobacter, suggesting the current episode is likely a new infection. Given recurrent infection with a retained device, biofilm-associated infection is a concern with attendant risks of bacteremia, endocarditis, and lead involvement. Vitals and initial labs are stable (WBC 8.7; platelets 253; sodium 142; BUN 7; creatinine 0.89). Plan: -Antimicrobial therapy: -Initiate/continue IV antibiotic therapy tailored to the susceptibilities of the gram-positive organism once finalized; plan for a minimum treatment duration of approximately 4 weeks, per standard for CIED pocket infection after I\&D when hardware remains in place. -Consider adjunctive oral rifampin if the organism and medication profile allow (pending susceptibilities and interaction review). -Monitor culture results (operative and blood) and adjust regimen accordingly. -Vascular access: -Given adhesive tape allergy and poor tolerance of prior midline/PICC, consider midline versus central venous catheter depending on final antibiotic selection and dwell requirements; use adhesive alternatives and securement strategies mindful of tape allergy. -Procedural follow-up: -Monitor wound closely post-I\&D; at the time of surgery, no fluctuance or induration was noted post-debridement. -Laboratory/monitoring: -Serial clinical assessments for fever, bacteremia, and signs of endocarditis or lead infection. -Follow-up blood cultures as clinically indicated. -Follow-up: -Infectious Diseases follow-up in 4 weeks, with close interval monitoring thereafter given multiple reinfections at the same site. -Activity/work: -Patient is not excluded from returning to work as long as IV antibiotics and access remain functional and she has no procedure- or therapy-related contraindications (per discussion documented). Isolation Precautions: standard Assessment and plan were discussed with the patient as written above. Plan is subject to change pending incorporation of new diagnostics. Updates may be added as an addendum. Thank you for the consult. ID will continue to follow. Please contact Infectious Disease for any questions or concerns. Anila Cates M.D. [facility] Teams: [email or web address] \ Physical Exam: General: NAD Neck: Supple. No masses. HEENT: PERRL. Normal lids and conjunctiva. Moist mucous membranes. Oropharynx without lesions, exudates or excessive erythema. Normal appearance of the external aspects of the nose and ears. Heart: Regular rhythm, normal rate. No murmur. No lower extremity edema. Lungs: Normal respiratory effort. Clear to auscultation bilaterally. No wheezes. No crackles. Abdomen: Soft. Non-tender. Non-distended. No masses or abdominal hernia. Msk: No digital cyanosis. Normal strength and tone in all 4 limbs Skin: Warm and dry, no rashes. Neuro: Alert. No facial droop or slurred speech. Extra-ocular movements intact. Sensation intact to soft touch in all 4 limbs. Psych: Appropriate mood. Full affect. Oriented to person, place, time, and situation. ANILA CATES MD Jun 20, 2025 12:00
--- NOTE | 2025-06-20 12:03 | DVHPN2 ---
Consult Progress Note Date Seen: Jun 20, 2025 Subjective Patient reports: Feels better (no drainage or pain in pacer pocket) Objective vital signs Vital Sign Date Time Temp Pulse Resp B/P (MAP) Pulse Ox O2 Delivery O2 Flow Rate FiO2 06/20/25 09:50 58 17 133/97 06/20/25 08:47 98.9 97 98.9 06/19/25 20:00 Room Air* 0 21 Total Intake and Output 06/19/25 06/19/25 06/20/25 15:00 23:00 07:00 Intake Total 1200 ml 1200 ml Balance 1200 ml 1200 ml medications Current Medications Medications Dose Ordered Sig/Leticia Route Start Time Stop Time Status Last Admin Dose Admin Docusate Sodium 100 mg BIDPRN PRN PO 06/16/25 20:15 Acetaminophen 650 mg Q6HP PRN PO 06/16/25 20:15 Acetaminophen/ Hydrocodone Bitart 1 tab Q6HPRN PRN PO 06/16/25 20:15 06/17/25 23:57 1 TAB Ondansetron HCl 4 mg Q4HP PRN IV 06/16/25 20:15 Morphine Sulfate 2 mg Q4HPRN PRN IV 06/16/25 20:15 06/20/25 09:50 2 MG Nitroglycerin 0.4 mg Q5MINP PRN SL 06/16/25 20:15 Morphine Sulfate 2 mg Q30M PRN IV 06/16/25 20:15 Diphenhydramine HCl 25 mg Q8HR PRN IV 06/18/25 09:30 06/20/25 09:39 25 MG Hydroxyzine HCl 10 mg TID PO 06/18/25 22:00 06/20/25 05:07 10 MG Rifampin 300 mg BID PO 06/20/25 11:51 Linezolid 600 mg BID PO 06/20/25 12:00 laboratory and microbiology Laboratory Tests 06/19/25 05:07 Test 06/19/25 05:07 Range/Units Serum Glucose 90 74-106 mg/dL Problem List/Assessment/Plan Problem List/Assessment/Plan ASSESSMENT AND PLAN: ID Problem List: -Recurrent pacemaker pocket infection (current episode; prior pocket infection with Enterobacter) -Cardiac implantable electronic device (CIED) with multiple lead revisions (most recent 04/08/2025) -Status post incision and debridement of infected pacemaker pocket on 06/17/2025 with intraoperative cultures pending (few gram-positive cocci, few gram-positive mallory reported) -Hypertension -Dyslipidemia -Adhesive tape allergy; poor tolerance of midline and PICC lines historically Assessment This is a 49 y.o. female with hypertension and dyslipidemia, s/p original pacemaker placement approximately one year ago with multiple subsequent lead revisions, who presents with a recurrent pacemaker pocket infection. Most recent lead revision occurred 04/08/2025. She underwent surgical incision and debridement of the pacemaker pocket on 06/17/2025 with cultures obtained. Early culture reporting notes few gram-positive cocci and few gram-positive mallory; blood cultures show no growth to date. Prior organism at the same site was Enterobacter, suggesting the current episode is likely a new infection. Given recurrent infection with a retained device, biofilm-associated infection is a concern with attendant risks of bacteremia, endocarditis, and lead involvement. Vitals and initial labs are stable (WBC 8.7; platelets 253; sodium 142; BUN 7; creatinine 0.89). 06/19: coag negative staph on culture Plan: -Antimicrobial therapy: - given picc line and midline access difficulties, in combination with coag negative growth on culture, willing to forego line in exchange for a highly bioavailable oral antibiotic plus rifampin for 6 weeks. - recommend TTE to evaluate for lead infection - switch to linezolid and rifampin. plan for 6 weeks once confirmation patient tolerates this regimen without allergy - fu in 4 weeks in ID clinic I\&D when hardware remains in place. -Consider adjunctive oral rifampin if the organism and medication profile allow (pending susceptibilities and interaction review). -Monitor culture results (operative and blood) and adjust regimen accordingly. -Procedural follow-up: -Monitor wound closely post-I\&D; at the time of surgery, no fluctuance or induration was noted post-debridement. -Laboratory/monitoring: -Serial clinical assessments for fever, bacteremia, and signs of endocarditis or lead infection. -Follow-up blood cultures as clinically indicated. -Follow-up: -Infectious Diseases follow-up in 4 weeks, with close interval monitoring thereafter given multiple reinfections at the same site. -Activity/work: -Patient is not excluded from returning to work as long as IV antibiotics and access remain functional and she has no procedure- or therapy-related contraindications (per discussion documented). Isolation Precautions: standard Assessment and plan were discussed with the patient as written above. Plan is subject to change pending incorporation of new diagnostics. Updates may be added as an addendum. Thank you for the consult. ID will continue to follow. Please contact Infectious Disease for any questions or concerns. Anila Cates M.D. [facility] Teams: [email or web address] \ Physical Exam: General: NAD Neck: Supple. No masses. HEENT: PERRL. Normal lids and conjunctiva. Moist mucous membranes. Oropharynx without lesions, exudates or excessive erythema. Normal appearance of the external aspects of the nose and ears. Heart: Regular rhythm, normal rate. No murmur. No lower extremity edema. Lungs: Normal respiratory effort. Clear to auscultation bilaterally. No wheezes. No crackles. Abdomen: Soft. Non-tender. Non-distended. No masses or abdominal hernia. Msk: No digital cyanosis. Normal strength and tone in all 4 limbs Skin: Warm and dry, no rashes. Neuro: Alert. No facial droop or slurred speech. Extra-ocular movements intact. Sensation intact to soft touch in all 4 limbs. Psych: Appropriate mood. Full affect. Oriented to person, place, time, and situation. Plan discussed with: Patient ANILA CATES MD Jun 20, 2025 12:03
[2025-06-20] MEDS ORDERED: RIFA300C58 PO (12:39)
[2025-06-20] MEDS ORDERED: LINE1TAB6 PO (12:39)
--- NOTE | 2025-06-20 13:34 | DVHPN2 ---
Progress Note - Dictate Date Seen: Jun 20, 2025 Has the PT tested + for MRSA If YES, has PT been informed?: No Medical Necessity Reason Pt with a Central, PICC or Fol: No Subjective She is evaluated by Infectious Disease. Patient unable to get PICC line due to allergic to tape and adhesives. Therefore infectious disease physician recommending either to place tunneled catheter for six weeks of IV antibiotics versus consider oral Zyvox and rifampin per six weeks. vital signs Vital Sign Date Time Temp Pulse Resp B/P (MAP) Pulse Ox O2 Delivery O2 Flow Rate FiO2 06/20/25 12:35 97.7 78 17 96/67 (77) 100 97.7 06/20/25 08:00 Room Air* 0 21 Total Intake and Output 06/19/25 06/19/25 06/20/25 15:00 23:00 07:00 Intake Total 1200 ml 1200 ml Balance 1200 ml 1200 ml medications Current Medications Medications Dose Ordered Sig/Leticia Route Start Time Stop Time Status Last Admin Dose Admin Docusate Sodium 100 mg BIDPRN PRN PO 06/16/25 20:15 Acetaminophen 650 mg Q6HP PRN PO 06/16/25 20:15 Acetaminophen/ Hydrocodone Bitart 1 tab Q6HPRN PRN PO 06/16/25 20:15 06/17/25 23:57 1 TAB Ondansetron HCl 4 mg Q4HP PRN IV 06/16/25 20:15 Morphine Sulfate 2 mg Q4HPRN PRN IV 06/16/25 20:15 06/20/25 09:50 2 MG Nitroglycerin 0.4 mg Q5MINP PRN SL 06/16/25 20:15 Morphine Sulfate 2 mg Q30M PRN IV 06/16/25 20:15 Diphenhydramine HCl 25 mg Q8HR PRN IV 06/18/25 09:30 06/20/25 09:39 25 MG Hydroxyzine HCl 10 mg TID PO 06/18/25 22:00 06/20/25 05:07 10 MG Rifampin 300 mg BID PO 06/20/25 11:51 06/20/25 11:51 300 MG Linezolid 600 mg BID PO 06/20/25 12:00 objective Comfortable in bed. Significant other is at bedside. HEENT neck supple no JVD. Heart regular rate and rhythm S1-S2. Lungs fair air movement without rales wheezes. Abdomen soft positive bowel sounds. Extremities no edema. laboratory and microbiology Laboratory Tests 06/19/25 05:07 Test 06/19/25 05:07 Range/Units Serum Glucose 90 74-106 mg/dL Assessment/Plan Wound culture preliminary results growing coagulase negative organisms. Apparently susceptibilities are not routinely done on this. Given patient unable to have PICC line due to adhesive allergies Infectious Disease recommending to consider tunneled catheter to be placed by interventional radiologist. The risks benefits of tunnel catheter including infection and catheter related blood gas discussed at length with the patient and significant other along with the nurse at bedside. Oral Zyvox apparently not covered by her health insurance and requires prior authorization. Therefore I have called and discussed with the on-call [facility] Medical group case preparer and liner regarding this. They will be working to get prior authorization to see if oral Zyvox can be approved by her insurance plan in the next 24-48 hours. Meantime we will continue present management and further clinical management per clinical course. Plan discussed with: Patient, Other ZENY CURRY MD Jun 20, 2025 13:34
--- NOTE | 2025-06-20 13:38 | ECG ---
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
[2025-06-21] VITALS (8 sets, daily range): BP systolic 105–118; BP diastolic 66–86; PULSE 64–83; RESP 16–18; TEMP 97.6–98.4; O2SAT 93–100
[2025-06-21 07:11] LABS: INR 1.06 (0.9-1.15); Partial Thromboplastin Time 27.9 SEC (24.5-34.5); Prothrombin Time 11.2 sec (9.3-11.8)
--- NOTE | 2025-06-21 09:58 | DVHPN2 ---
Consult Progress Note Date Seen: Jun 21, 2025 Subjective Patient reports: Feels better (explained to patient and antibiotic plan they are agreeable. ) Objective vital signs Vital Sign Date Time Temp Pulse Resp B/P (MAP) Pulse Ox O2 Delivery O2 Flow Rate FiO2 06/21/25 05:00 98.0 64 16 114/79 (91) 95 98.0 06/20/25 20:00 Room Air* 0 21 Total Intake and Output 06/20/25 06/20/25 06/21/25 15:00 23:00 07:00 Intake Total 700 ml 400 ml Balance 700 ml 400 ml medications Current Medications Medications Dose Ordered Sig/Leticia Route Start Time Stop Time Status Last Admin Dose Admin Docusate Sodium 100 mg BIDPRN PRN PO 06/16/25 20:15 Acetaminophen 650 mg Q6HP PRN PO 06/16/25 20:15 Acetaminophen/ Hydrocodone Bitart 1 tab Q6HPRN PRN PO 06/16/25 20:15 06/17/25 23:57 1 TAB Ondansetron HCl 4 mg Q4HP PRN IV 06/16/25 20:15 Morphine Sulfate 2 mg Q4HPRN PRN IV 06/16/25 20:15 06/21/25 01:13 2 MG Nitroglycerin 0.4 mg Q5MINP PRN SL 06/16/25 20:15 Morphine Sulfate 2 mg Q30M PRN IV 06/16/25 20:15 Diphenhydramine HCl 25 mg Q8HR PRN IV 06/18/25 09:30 06/20/25 19:43 25 MG Hydroxyzine HCl 10 mg TID PO 06/18/25 22:00 06/21/25 05:19 10 MG Rifampin 300 mg BID PO 06/20/25 11:51 06/20/25 20:56 300 MG Linezolid 600 mg BID PO 06/20/25 12:00 laboratory and microbiology Laboratory Tests 06/19/25 05:07 Test 06/19/25 05:07 Range/Units Serum Glucose 90 74-106 mg/dL Problem List/Assessment/Plan Problem List/Assessment/Plan ASSESSMENT AND PLAN: ID Problem List: -Recurrent pacemaker pocket infection (current episode; prior pocket infection with Enterobacter) -Cardiac implantable electronic device (CIED) with multiple lead revisions (most recent 04/08/2025) -Status post incision and debridement of infected pacemaker pocket on 06/17/2025 with intraoperative cultures pending (few gram-positive cocci, few gram-positive mallory reported) -Hypertension -Dyslipidemia -Adhesive tape allergy; poor tolerance of midline and PICC lines historically Assessment This is a 49 y.o. female with hypertension and dyslipidemia, s/p original pacemaker placement approximately one year ago with multiple subsequent lead revisions, who presents with a recurrent pacemaker pocket infection. Most recent lead revision occurred 04/08/2025. She underwent surgical incision and debridement of the pacemaker pocket on 06/17/2025 with cultures obtained. Early culture reporting notes few gram-positive cocci and few gram-positive mallory; blood cultures show no growth to date. Prior organism at the same site was Enterobacter, suggesting the current episode is likely a new infection. Given recurrent infection with a retained device, biofilm-associated infection is a concern with attendant risks of bacteremia, endocarditis, and lead involvement. Vitals and initial labs are stable (WBC 8.7; platelets 253; sodium 142; BUN 7; creatinine 0.89). 06/19: coag negative staph on culture Plan: -Antimicrobial therapy: - given picc line and midline access difficulties, in combination with coag negative growth on culture, willing to forego line in exchange for a highly bioavailable oral antibiotic plus rifampin for 6 weeks. - recommend TTE to evaluate for lead infection - switch to linezolid and rifampin. plan for 6 weeks of oral antibiotics once confirmation patient tolerates this regimen without allergy - fu in 4 weeks in ID clinic I\&D when hardware remains in place. -Consider adjunctive oral rifampin if the organism and medication profile allow (pending susceptibilities and interaction review). -Monitor culture results (operative and blood) and adjust regimen accordingly. -Procedural follow-up: -Monitor wound closely post-I\&D; at the time of surgery, no fluctuance or induration was noted post-debridement. -Laboratory/monitoring: -Serial clinical assessments for fever, bacteremia, and signs of endocarditis or lead infection. -Follow-up blood cultures as clinically indicated. -Follow-up: -Infectious Diseases follow-up in 4 weeks, with close interval monitoring thereafter given multiple reinfections at the same site. -Activity/work: -Patient is not excluded from returning to work as long as IV antibiotics and access remain functional and she has no procedure- or therapy-related contraindications (per discussion documented). Isolation Precautions: standard Assessment and plan were discussed with the patient as written above. Plan is subject to change pending incorporation of new diagnostics. Updates may be added as an addendum. Thank you for the consult. ID will continue to follow. Please contact Infectious Disease for any questions or concerns. Anila Cates M.D. [facility] Teams: [email or web address] \ Physical Exam: General: NAD Neck: Supple. No masses. HEENT: PERRL. Normal lids and conjunctiva. Moist mucous membranes. Oropharynx without lesions, exudates or excessive erythema. Normal appearance of the external aspects of the nose and ears. Heart: Regular rhythm, normal rate. No murmur. No lower extremity edema. Lungs: Normal respiratory effort. Clear to auscultation bilaterally. No wheezes. No crackles. Abdomen: Soft. Non-tender. Non-distended. No masses or abdominal hernia. Msk: No digital cyanosis. Normal strength and tone in all 4 limbs Skin: Warm and dry, no rashes. Neuro: Alert. No facial droop or slurred speech. Extra-ocular movements intact. Sensation intact to soft touch in all 4 limbs. Psych: Appropriate mood. Full affect. Oriented to person, place, time, and situation. Plan discussed with: Patient ANILA CATES MD Jun 21, 2025 09:58
--- NOTE | 2025-06-21 16:12 | DVHPN2 ---
Progress Note - Dictate Date Seen: Jun 21, 2025 Has the PT tested + for MRSA If YES, has PT been informed?: No Medical Necessity Reason Pt with a Central, PICC or Fol: No Subjective Patient did not want to have tunnel catheter placed today. She wants to try oral antibiotics if possible. Discussed with the on-call [facility] Medical group case assistant and they are waiting for prior authorization and approval from her health plan for Zyvox oral medication. vital signs Vital Sign Date Time Temp Pulse Resp B/P (MAP) Pulse Ox O2 Delivery O2 Flow Rate FiO2 06/21/25 14:43 83 17 118/85 06/21/25 13:00 98.0 93 98.0 06/20/25 20:00 Room Air* 0 21 Total Intake and Output 06/20/25 06/20/25 06/21/25 15:00 23:00 07:00 Intake Total 700 ml 400 ml Balance 700 ml 400 ml medications Current Medications Medications Dose Ordered Sig/Leticia Route Start Time Stop Time Status Last Admin Dose Admin Docusate Sodium 100 mg BIDPRN PRN PO 06/16/25 20:15 Acetaminophen 650 mg Q6HP PRN PO 06/16/25 20:15 Acetaminophen/ Hydrocodone Bitart 1 tab Q6HPRN PRN PO 06/16/25 20:15 06/17/25 23:57 1 TAB Ondansetron HCl 4 mg Q4HP PRN IV 06/16/25 20:15 Morphine Sulfate 2 mg Q4HPRN PRN IV 06/16/25 20:15 06/21/25 14:43 2 MG Nitroglycerin 0.4 mg Q5MINP PRN SL 06/16/25 20:15 Morphine Sulfate 2 mg Q30M PRN IV 06/16/25 20:15 Diphenhydramine HCl 25 mg Q8HR PRN IV 06/18/25 09:30 06/21/25 13:06 25 MG Rifampin 300 mg BID PO 06/20/25 11:51 06/21/25 10:02 300 MG Linezolid 600 mg BID PO 06/20/25 12:00 06/21/25 10:02 600 MG objective Comfortable in bed. Significant other is at bedside. HEENT neck supple no JVD. Heart regular rate and rhythm S1-S2. Lungs fair air movement without rales wheezes. Abdomen soft positive bowel sounds. Extremities no edema. laboratory and microbiology Laboratory Tests 06/19/25 05:07 Test 06/19/25 05:07 Range/Units Serum Glucose 90 74-106 mg/dL Assessment/Plan Given her reluctance to undergo tunnel cath today it was canceled by [employer] labourer. I have discussed with the patient and significant other once again at bedside along with the nurse at bedside regarding option of oral antibiotics versus IV antibiotics with tunnel catheterization. Still waiting to hear from patient's health plan regarding prior authorization for Zyvox oral medication. Continue oral Zyvox and rifampin while she is here in the hospital. Meantime we will continue present management and further clinical management per clinical course. Dietary Evaluation Review Comments: Nutrition Recommendation 1) Haroon 1 pk BID 2) Monitor PO intake, lab values, weight trend, and I/O Expected Outcomes/Goals: Wound to improve FU 5-7 days Plan discussed with: Patient, Other ZENY CURRY MD Jun 21, 2025 16:12
[2025-06-21] MEDS: LINEZOLID 600MG/300ML 300 ML IV SCH (23:32)
[2025-06-22] VITALS (7 sets, daily range): BP systolic 95–115; BP diastolic 69–91; PULSE 68–90; RESP 16–19; TEMP 97.5–98.9; O2SAT 94–97
--- NOTE | 2025-06-22 14:34 | DVHPN2 ---
Progress Note - Dictate Date Seen: Jun 22, 2025 Has the PT tested + for MRSA If YES, has PT been informed?: No Medical Necessity Reason Pt with a Central, PICC or Fol: No Subjective Patient changed her mind and apparently discussed with the Infectious Disease regarding reconsidering tunnel catheter placement. Today Interventional Radiology however felt risks of catheter placement with a known allergic reactions and poor wound healing is greater than taking oral pills. Therefore he is recommending to continue oral antibiotics if possible. vital signs Vital Sign Date Time Temp Pulse Resp B/P (MAP) Pulse Ox O2 Delivery O2 Flow Rate FiO2 06/22/25 13:00 97.9 86 16 100/77 (85) 97 97.9 06/22/25 08:00 Room Air* 0 21 Total Intake and Output 06/21/25 06/21/25 06/22/25 15:00 23:00 07:00 Intake Total 954 ml 600 ml Balance 954 ml 600 ml medications Current Medications Medications Dose Ordered Sig/Leticia Route Start Time Stop Time Status Last Admin Dose Admin Docusate Sodium 100 mg BIDPRN PRN PO 06/16/25 20:15 Acetaminophen 650 mg Q6HP PRN PO 06/16/25 20:15 Acetaminophen/ Hydrocodone Bitart 1 tab Q6HPRN PRN PO 06/16/25 20:15 06/17/25 23:57 1 TAB Ondansetron HCl 4 mg Q4HP PRN IV 06/16/25 20:15 Morphine Sulfate 2 mg Q4HPRN PRN IV 06/16/25 20:15 06/22/25 10:22 2 MG Nitroglycerin 0.4 mg Q5MINP PRN SL 06/16/25 20:15 Morphine Sulfate 2 mg Q30M PRN IV 06/16/25 20:15 Diphenhydramine HCl 25 mg Q8HR PRN IV 06/18/25 09:30 06/21/25 21:03 25 MG Rifampin 300 mg BID PO 06/20/25 11:51 06/21/25 21:06 300 MG Linezolid 300 ml @ 150 mls/hr Q12HR IV 06/21/25 22:00 06/22/25 10:18 150 MLS/HR objective Comfortable in bed. Significant other is at bedside. HEENT neck supple no JVD. Heart regular rate and rhythm S1-S2. Lungs fair air movement without rales wheezes. Abdomen soft positive bowel sounds. Extremities no edema. laboratory and microbiology Laboratory Tests 06/19/25 05:07 Test 06/19/25 05:07 Range/Units Serum Glucose 90 74-106 mg/dL Assessment/Plan Given Interventional Radiology feels oral antibiotics should be tried given her allergies with the catheters adhesives and dressings. I have notified Dr. Carne infectious disease as well as Radiology Dr. Garcia regarding this via text today. I will leave further decision to both the physician's after discussing with the patient to come up with a plan either convince patient to take oral medication or take a risk and have tunnel catheter done for the IV antibiotics. Meantime continue present management. We will DC the telemetry given patient does not have any and rhythm or rate issues since admission. Discussed with the nurse regarding care plan. Problems(with codes): (1) Infection of pacemaker pocket (2) Allergic reaction (3) Pacemaker (4) Cellulitis of chest wall Dietary Evaluation Review Comments: Nutrition Recommendation 1) Haroon 1 pk BID 2) Monitor PO intake, lab values, weight trend, and I/O Expected Outcomes/Goals: Wound to improve FU 5-7 days Plan discussed with: Other ZENY CURRY MD Jun 22, 2025 14:34
[2025-06-23] VITALS (14 sets, daily range): BP systolic 98–124; BP diastolic 72–94; PULSE 65–91; RESP 11–20; TEMP 97.6–98.3; O2SAT 94–97
[2025-06-23 05:58] LABS: Hematocrit 45.0 % (36.0-46.0); Hemoglobin 15.9 g/dL (12.2-16.2); Mean Corpuscular Hemoglobin 31.9 pg (28.0-32.0); Mean Corpuscular Volume 90.4 fL (80.0-100.0); Nucleated Red Blood Cells % 0.2 %
[2025-06-23 06:03] LABS: Chloride 101 mmol/L (98-107); Potassium 3.8 mmol/L (3.5-5.1); Sodium 140 mmol/L (136-145)
[2025-06-23 06:04] LABS: Anion Gap 11 (5-15); Calcium 10.0 mg/dL (8.7-10.4); Carbon Dioxide 28 mmol/L (20-31)
[2025-06-23 06:09] LABS: BUN/Creatinine Ratio 7.6 (10.0-20.0); Glucose 100 mg/dL (74-106)
[2025-06-23 06:21] LABS: Blood Urea Nitrogen 8 mg/dL (9-23)
[2025-06-23] MEDS: SULFAMETHOX W/TRIMETH(800/160MG) DS TAB PO SCH (09:00)
--- NOTE | 2025-06-23 14:24 | DVHPN2 ---
Consult Progress Note Objective vital signs Vital Sign Date Time Temp Pulse Resp B/P (MAP) Pulse Ox O2 Delivery O2 Flow Rate FiO2 06/23/25 12:37 97.7 66 18 111/72 (85) 95 97.7 06/23/25 08:00 Room Air* 0 21 Total Intake and Output 06/22/25 06/22/25 06/23/25 15:00 23:00 07:00 Intake Total 950 ml Balance 950 ml medications Current Medications Medications Dose Ordered Sig/Leticia Route Start Time Stop Time Status Last Admin Dose Admin Docusate Sodium 100 mg BIDPRN PRN PO 06/16/25 20:15 Acetaminophen 650 mg Q6HP PRN PO 06/16/25 20:15 Acetaminophen/ Hydrocodone Bitart 1 tab Q6HPRN PRN PO 06/16/25 20:15 06/17/25 23:57 1 TAB Ondansetron HCl 4 mg Q4HP PRN IV 06/16/25 20:15 Morphine Sulfate 2 mg Q4HPRN PRN IV 06/16/25 20:15 06/23/25 12:02 2 MG Nitroglycerin 0.4 mg Q5MINP PRN SL 06/16/25 20:15 Morphine Sulfate 2 mg Q30M PRN IV 06/16/25 20:15 Diphenhydramine HCl 25 mg Q8HR PRN IV 06/18/25 09:30 06/23/25 10:03 25 MG Rifampin 300 mg BID PO 06/20/25 11:51 06/22/25 21:48 300 MG Linezolid 300 ml @ 150 mls/hr Q12HR IV 06/21/25 22:00 06/23/25 10:02 150 MLS/HR Trimethoprim/ Sulfamethoxazole 1 tab Q12HR PO 06/23/25 09:00 laboratory and microbiology Laboratory Tests 06/23/25 05:23 Test 06/23/25 05:23 Range/Units Serum Glucose 100 74-106 mg/dL Problem List/Assessment/Plan Problem List/Assessment/Plan ASSESSMENT AND PLAN: ID Problem List: -Recurrent pacemaker pocket infection (current episode; prior pocket infection with Enterobacter) -Cardiac implantable electronic device (CIED) with multiple lead revisions (most recent 04/08/2025) -Status post incision and debridement of infected pacemaker pocket on 06/17/2025 with intraoperative cultures pending (few gram-positive cocci, few gram-positive mallory reported) -Hypertension -Dyslipidemia -Adhesive tape allergy; poor tolerance of midline and PICC lines historically Assessment This is a 49 y.o. female with hypertension and dyslipidemia, s/p original pacemaker placement approximately one year ago with multiple subsequent lead revisions, who presents with a recurrent pacemaker pocket infection. Most recent lead revision occurred 04/08/2025. She underwent surgical incision and debridement of the pacemaker pocket on 06/17/2025 with cultures obtained. Early culture reporting notes few gram-positive cocci and few gram-positive mallory; blood cultures show no growth to date. Prior organism at the same site was Enterobacter, suggesting the current episode is likely a new infection. Given recurrent infection with a retained device, biofilm-associated infection is a concern with attendant risks of bacteremia, endocarditis, and lead involvement. Vitals and initial labs are stable (WBC 8.7; platelets 253; sodium 142; BUN 7; creatinine 0.89). 06/19: coag negative staph on culture Plan: -Antimicrobial therapy: - given picc line and midline access difficulties, in combination with coag negative growth on culture, willing to forego line in exchange for a highly bioavailable oral antibiotic plus rifampin for 6 weeks. - recommend TTE to evaluate for lead infection - switch to linezolid and rifampin. plan for 6 weeks of oral antibiotics once confirmation patient tolerates this regimen without allergy - fu in 4 weeks in ID clinic I\&D when hardware remains in place. -Consider adjunctive oral rifampin if the organism and medication profile allow (pending susceptibilities and interaction review). -Monitor culture results (operative and blood) and adjust regimen accordingly. -Procedural follow-up: -Monitor wound closely post-I\&D; at the time of surgery, no fluctuance or induration was noted post-debridement. -Laboratory/monitoring: -Serial clinical assessments for fever, bacteremia, and signs of endocarditis or lead infection. -Follow-up blood cultures as clinically indicated. -Follow-up: -Infectious Diseases follow-up in 4 weeks, with close interval monitoring thereafter given multiple reinfections at the same site. -Activity/work: -Patient is not excluded from returning to work as long as IV antibiotics and access remain functional and she has no procedure- or therapy-related contraindications (per discussion documented). Isolation Precautions: standard Assessment and plan were discussed with the patient as written above. Plan is subject to change pending incorporation of new diagnostics. Updates may be added as an addendum. Thank you for the consult. ID will continue to follow. Please contact Infectious Disease for any questions or concerns. Anila Cates M.D. [facility] Teams: [email or web address] \ Physical Exam: General: NAD Neck: Supple. No masses. HEENT: PERRL. Normal lids and conjunctiva. Moist mucous membranes. Oropharynx without lesions, exudates or excessive erythema. Normal appearance of the external aspects of the nose and ears. Heart: Regular rhythm, normal rate. No murmur. No lower extremity edema. Lungs: Normal respiratory effort. Clear to auscultation bilaterally. No wheezes. No crackles. Abdomen: Soft. Non-tender. Non-distended. No masses or abdominal hernia. Msk: No digital cyanosis. Normal strength and tone in all 4 limbs Skin: Warm and dry, no rashes. Neuro: Alert. No facial droop or slurred speech. Extra-ocular movements intact. Sensation intact to soft touch in all 4 limbs. Psych: Appropriate mood. Full affect. Oriented to person, place, time, and situation. Dietary Evaluation Review Comments: Nutrition Recommendation 1) Haroon 1 pk BID 2) Monitor PO intake, lab values, weight trend, and I/O Expected Outcomes/Goals: Wound to improve FU 5-7 days ANILA CATES MD Jun 23, 2025 14:24
[2025-06-23] MEDS: HEPARIN SODIUM (PORCINE) 5000 UNITS/ML 1ML VIAL ONE (16:13)
[2025-06-23] MEDS: fentaNYL CITRATE 100 MCG/2 ML VL ONE (16:13)
[2025-06-23] MEDS: MIDAZOLAM HCL 2MG/2ML 2ml VIAL (1mg/ml) ONE (16:13)
[2025-06-23] MEDS: LIDOCAINE 2%HCL (LOCAL ANESTH.) INJ 20ML MDV ONE (16:13)
[2025-06-23] MEDS ORDERED: SODIUM CHLORIDE 0.9% 1,000 ML IV ONE (16:45)
--- NOTE | 2025-06-23 16:45 | DVHPN2 ---
Progress Note - Dictate Date Seen: Jun 23, 2025 Has the PT tested + for MRSA If YES, has PT been informed?: No Medical Necessity Reason Pt with a Central, PICC or Fol: No Subjective Patient is not in her room as she is in the radiology department undergoing tunneled catheter placement for IV antibiotics. Her significant other is in the room discussed with the him and nurse regarding care plan. vital signs Vital Sign Date Time Temp Pulse Resp B/P (MAP) Pulse Ox O2 Delivery O2 Flow Rate FiO2 06/23/25 12:37 97.7 66 18 111/72 (85) 95 97.7 06/23/25 08:00 Room Air* 0 21 Total Intake and Output 06/22/25 06/22/25 06/23/25 15:00 23:00 07:00 Intake Total 950 ml Balance 950 ml medications Current Medications Medications Dose Ordered Sig/Leticia Route Start Time Stop Time Status Last Admin Dose Admin Docusate Sodium 100 mg BIDPRN PRN PO 06/16/25 20:15 Acetaminophen 650 mg Q6HP PRN PO 06/16/25 20:15 Acetaminophen/ Hydrocodone Bitart 1 tab Q6HPRN PRN PO 06/16/25 20:15 06/17/25 23:57 1 TAB Ondansetron HCl 4 mg Q4HP PRN IV 06/16/25 20:15 Morphine Sulfate 2 mg Q4HPRN PRN IV 06/16/25 20:15 06/23/25 12:02 2 MG Nitroglycerin 0.4 mg Q5MINP PRN SL 06/16/25 20:15 Morphine Sulfate 2 mg Q30M PRN IV 06/16/25 20:15 Diphenhydramine HCl 25 mg Q8HR PRN IV 06/18/25 09:30 06/23/25 10:03 25 MG Rifampin 300 mg BID PO 06/20/25 11:51 06/22/25 21:48 300 MG Linezolid 300 ml @ 150 mls/hr Q12HR IV 06/21/25 22:00 06/23/25 10:02 150 MLS/HR Trimethoprim/ Sulfamethoxazole 1 tab Q12HR PO 06/23/25 09:00 objective Comfortable in bed. Significant other is at bedside. HEENT neck supple no JVD. Heart regular rate and rhythm S1-S2. Lungs fair air movement without rales wheezes. Abdomen soft positive bowel sounds. Extremities no edema. laboratory and microbiology Laboratory Tests 06/23/25 05:23 Test 06/23/25 05:23 Range/Units Serum Glucose 100 74-106 mg/dL Assessment/Plan Patient is getting her tunneled catheter placed for four weeks of IV antibiotics regarding by Infectious Disease. We will continue IV Zyvox and oral rifampin while she is in the hospital. DC the Bactrim. Continue IV fluids overnight for 1 L. follow the labs tomorrow. Otherwise further clinical management per clinical course. Dietary Evaluation Review Comments: Nutrition Recommendation 1) Haroon 1 pk BID 2) Monitor PO intake, lab values, weight trend, and I/O Expected Outcomes/Goals: Wound to improve FU 5-7 days Plan discussed with: Other ZENY CURRY MD Jun 23, 2025 16:45
--- NOTE | 2025-06-23 17:15 | DVHSR ---
APPROVED REPORT EXAM: Two-dimensional and M-mode echocardiogram with Doppler and color Doppler. Blood Pressure: 133/97 mmHg INDICATION Evaluate for lead infection R/O endocarditis Surgery/Intervention Pacemaker: RISK [employer]CTORS Height: 5'4", Weight: 131 DIMENSIONS LVDd (3.8-5.7cm) LA (2D) 3.3 (1.9-4.0cm) Aortic Root (2.0-3.7cm) EF (%) 60.0 (55-70%) Rt. Atrium 4.0 (1.9-4.0cm) Asc. Aorta cm Mitral Valve Mitral Mitral Stenosis E wave 0.58m/s MV Mean GR. mmHg A wave 0.63m/s MV Peak GR. mmHg E/A ratio 0.9 2D MVA cm2 DECEL Time 203ms PRESS 1/2 Time ms Aortic Valve Aortic Valve Aortic Stenosis V1 0.85m/s AO Mean GR. 4mmHg V2 1.25m/s AO Peak GR. 6mmHg LVOT Diameter 1.8 (1.8-2.4cm) Doppler ARIANNA 1.73cm2 Tricuspid Valve TR Velocity 2.05m/s RVSP 20mmHg Other Information Quality : Technically Limited Rhythm : Technically limited study due to patient has bandages covering parasternal views. Conclusion Off axis views. Normal sinus rhythm. Chamber sizes appear to be within normal limits. Valves appear to be normal. Left ventricular function is preserved at 60% with normal RV function. Pacing lead noted in right atrium and right ventricle. No pericardial effusion masses or vegetations. Normal Doppler.
[2025-06-23] MEDS ORDERED: SODIUM CHLORIDE 0.9% 1,000 ML IV SCH (17:45)
[2025-06-23] MEDS: HYDROmorphone HCL 2 MG/ML VL/or syr IV PRN (17:55)
[2025-06-23] MEDS: SODIUM CHLORIDE 0.9% 1,000 ML IV SCH (18:25)
[2025-06-24 01:08] VITALS: BP 112/77; PULSE 85; RESP 20; TEMP 98; O2SAT 96
[2025-06-24 05:00] VITALS: BP 120/70; PULSE 81; RESP 20; TEMP 98.1; O2SAT 95
--- NOTE | 2025-06-24 05:08 | DVH ---
Exam: US US GUIDED VASCULAR ACCESS Clinical History: POWER-LINE PLACEMENT Comparison: US CHEST WALL on DOS: 08/18/24, US RT UPPER DVT on DOS: 08/07/24 Findings: Targeted sonographic evaluation of the right internal jugular vein was obtained utilizing grayscale and color Doppler imaging. IMPRESSION: Sonographic assistance for central line placement. Please refer to procedural report for detailed findings.
[2025-06-24 05:33] LABS: Hematocrit 38.5 % (36.0-46.0); Hemoglobin 13.4 g/dL (12.2-16.2); Mean Corpuscular Hemoglobin 31.6 pg (28.0-32.0); Mean Corpuscular Volume 90.5 fL (80.0-100.0); Nucleated Red Blood Cells % 0.1 %
[2025-06-24 05:40] LABS: Anion Gap 10 (5-15); Carbon Dioxide 25 mmol/L (20-31); Chloride 105 mmol/L (98-107); Potassium 3.9 mmol/L (3.5-5.1); Sodium 140 mmol/L (136-145)
[2025-06-24 05:41] LABS: Calcium 9.3 mg/dL (8.7-10.4)
[2025-06-24 05:45] LABS: Glucose 97 mg/dL (74-106)
[2025-06-24 05:46] LABS: BUN/Creatinine Ratio 9.9 (10.0-20.0); Blood Urea Nitrogen 9 mg/dL (9-23)
--- NOTE | 2025-06-24 07:50 | DVH ---
DATE: PROCEDURE: TUNNELED CENTRAL VENOUS CATHETER PLACEMENT USING FLUOROSCOPY AND ULTRASOUND HISTORY: PL OF CENTRAL VENOUS CATH DOCUMENTATION: Informed consent was obtained and a procedural time out was performed. SEDATION: Moderate sedation was utilized during the procedure. The patient received benzodiazepines and opioids, the dosing of which was documented in the patient s permanent medical record. Pre-sedation history and evaluation revealed no contraindications to sedation. The patient s level of consciousness and physiologic status was monitored continuously by the physician and nursing staff throughout the procedure. Total intra-service moderate sedation time was 30 minutes. FLUORO: 1 minutes, DAP: 2 mGy TECHNIQUE: The skin over the RIGHT internal jugular vein and chest was sterilely prepped, draped and anesthetized with 1% lidocaine with epinephrine. The vein was accessed with a 21-gauge needle under ultrasound guidance with an image archived in the PACS. A guidewire was then passed into the central veins under fluoroscopy. The subcutaneous tunnel was anesthetized with 1% lidocaine and the catheter was tunneled to the venous entry site, cut to the appropriate length, and inserted through a peel away sheath. A final radiograph was obtained, the catheter was flushed and secured in place, and sterile dressings were applied. Procedural physician complied with all CLIP criteria, including preprocedural hand hygiene and use of maximum sterile barriers including hat, gown, sterile gloves, mask, and head to toe drape. The neck and chest were prepped with chlorhexidine solution and draped in the usual sterile fashion. The prep solution was allowed to dry prior to puncture. FINDINGS: Ultrasound demonstrates a patent RIGHT internal jugular vein. The tip of the catheter was placed near the cavoatrial junction. No complications are identified. IMPRESSION: SUCCESSFUL 7.5 ARGENTINE DUAL-LUMEN POWER INJECTABLE TUNNELED CENTRAL VENOUS CATHETER PLACEMENT. THE CATHETER IS READY FOR IMMEDIATE USE.
[2025-06-24 09:00] VITALS: BP 117/84; PULSE 78; RESP 20; TEMP 97.3; O2SAT 97
--- NOTE | 2025-06-24 11:08 | DVH ---
INDICATION: PACEMAKER PLACEMENT TECHNIQUE: Frontal view of the chest. COMPARISON: XY CHEST TWO VIEWS ROUTINE on DOS: 06/17/25, XY CHEST PORTABLE on DOS: 04/08/25, XY CHEST PORTABLE on DOS: 04/07/25, XR CHEST 2 VIEW on DOS: 02/22/25, XY CHEST XRAY 1 VIEW on DOS: 02/13/25 FINDINGS: Left dual lead pacemaker. Right tunneled PICC with tip in the cavoatrial junction. The heart and mediastinal contours are grossly unremarkable. There is no evidence of pleural disease. The lungs are clear. The bony structures of the chest are intact without fracture. IMPRESSION: 1. No evidence of acute disease.
[2025-06-24] MEDS ORDERED: HYDROmorphone HCL 2 MG/ML VL/or syr IV PRN (11:30)
[2025-06-24 12:24] VITALS: BP 111/78; PULSE 89; RESP 20; TEMP 97; O2SAT 97
--- NOTE | 2025-06-24 13:57 | DVHDS2 ---
Discharge Summary Date of Admission Jun 16, 2025 at 19:07 Date of Discharge: Jun 24, 2025 Labs/Diagnostic Data: Laboratory Results Test 06/24/25 05:05 06/21/25 05:19 06/17/25 05:50 06/16/25 21:00 White Blood Count 6.9 10^3/uL (4.4-10.8) Red Blood Count 4.26 10^6/uL (4.0-5.20) Hemoglobin 13.4 g/dL (12.2-16.2) Hematocrit 38.5 % (36.0-46.0) Mean Corpuscular Volume 90.5 fL (80.0-100.0) Mean Corpuscular Hemoglobin 31.6 pg (28.0-32.0) Mean Corpuscular Hemoglobin Concent 34.9 g/dL (32.0-36.0) Red Cell Distribution Width 12.4 % (11.8-14.3) Platelet Count 256 10^3/uL (140-450) Mean Platelet Volume 8.9 fL (6.9-10.8) Neutrophils (%) (Auto) 62.2 % (37.0-80.0) Lymphocytes (%) (Auto) 24.9 % (10.0-50.0) Monocytes (%) (Auto) 9.8 % (0.0-12.0) Eosinophils (%) (Auto) 2.6 % (0.0-7.0) Basophils (%) (Auto) 0.5 % (0.0-2.0) Neutrophils # (Auto) 4.3 10 ^3/uL (1.6-8.6) Lymphocytes # (Auto) 1.7 10 ^3/uL (0.4-5.4) Monocytes # (Auto) 0.7 10 ^3/uL (0-1.3) Eosinophils # (Auto) 0.2 10 ^3/uL (0-0.8) Basophils # (Auto) 0 10 ^3/uL (0-0.2) Nucleated Red Blood Cells 0.1 % Sodium Level 140 mmol/L (136-145) Potassium Level 3.9 mmol/L (3.5-5.1) Chloride Level 105 mmol/L (98-107) Carbon Dioxide Level 25 mmol/L (20-31) Anion Gap 10 (5-15) Blood Urea Nitrogen 9 mg/dL (9-23) Creatinine 0.91 mg/dL (0.550-1.02) Glomerular Filtration Rate Calc 77 mL/min (>90) BUN/Creatinine Ratio 9.9 (10.0-20.0) Serum Glucose 97 mg/dL (74-106) Calcium Level 9.3 mg/dL (8.7-10.4) Prothrombin Time 11.2 sec (9.3-11.8) Prothrombin Time INR 1.06 (0.9-1.15) Activated Partial Thromboplast Time 27.9 SEC (24.5-34.5) Magnesium Level 1.9 mg/dL (1.6-2.6) Beta HCG, Quantitative 2.1 mIU/mL (1.5-4.2) Total Bilirubin 0.4 mg/dL (0.2-1.0) Aspartate Amino Transferase (AST) 37 U/L (13-40) Alanine Aminotransferase (ALT) 29 U/L (7-40) Alkaline Phosphatase 100 U/L (46-116) Total Protein 7.0 g/dL (5.7-8.2) Albumin 4.3 g/dL (3.2-4.8) Other Laboratory Tests 06/24/25 05:05 Brief Hx & Hospital Course: 49-year-old female with past medical history of dysrhythmias, hypertension, pacemaker placement presents for surgical evaluation and surgical debridement of a poorly healing chest wound. Patient previously had a pacemaker placed on April 07, 2025, however incision has not healed appropriately. Patient was directly admitted at the request of Cardiology for surgery in the a.m.. At this time the patient denies any fevers, chills, malaise, dizziness, shortness of breath, chest pain, palpitations, nausea, vomiting, purulent discharge from the wound. She is admitted and underwent successful debridement of her pacemaker site by sys dir. Subsequently she is evaluated by Infectious Disease. Patient is recommended IV antibiotics. However given her allergies and poor wound healing initially she refused to have PICC line placed. Therefore discussions was done to transitioned to oral antibiotics. However she did not wanted to take oral antibiotics for prolonged period of time as recommended due to upset stomach. Therefore patient had a 2nd attempt and underwent successful right-sided tunneled PICC line catheter placement by Radiology. Subsequently she is resumed on her IV Zyvox and continued on oral rifampin. She is tolerating these. Home health is arranged and Infectious Disease advised to continue these medications for four weeks total. She is to follow up with Dr. Crane infectious disease and her sys dir Dr. Sadler ongoing basis in the next 1-4 weeks to make sure patient is infection is improving. I have talked with the patient as well as significant other on multiple occasions during this hospitalization including today along with the nurse at bedside regarding her hospital diagnosis, procedure she has done including side effects related to poor wound healing and blood clots, side effects of antibiotics, discharge instructions follow-up plan of care at length. She has verbalized understanding of these and agree to follow the tool and production planner plan as outlined and given patient is feeling better she is requesting to be discharged home this evening. Operative Report - 2 Report Details Date: 06/17/25 Preop Diagnosis: Infected pacemaker incision Postop Diagnosis: Successful debridement of pacemaker incision and superficial pocket Surgeon: Chino Espinoza MD Yarder: Glen LI Anesthesiologist: Dr. Madrid Anesthesia: Mac, Local Consent: The patient was informed of the risks and benefits of the procedure. These include but are not limited to complications of anesthesia, postoperative infection, incomplete relief of symptoms, recurrence of symptoms, damage to blood vessels, nerves and tendons, deep venous thrombosis, pulmonary embolism and possible need for repeat surgery in the future. Complications: No complications Estimated Blood Loss: Five cc Findings: Minor induration and pocket suppuration Indications for Surgery: Recurrent drainage from edge of pacemaker incision indicative of superficial pocket infection. Name of Procedure Performed Debridement of superficial pacemaker pocket Procedure Details Procedure Details: Prior full informed consent obtained the patient was prepped and draped in the usual fashion and heavy sedation by anesthesia as well as local anesthetic with 2% lidocaine to the left pectoral area. We identified the site of pocket suppuration and an extensive debridement of the surrounding tissue and cleaning with antibiotic solution and removal of all surrounding suture matter as well as the indurated surrounding edges of the existing incision were debrided. The pocket was closed subsequent to copious irrigation with antibiotic filled solution. Cauterizing all bleeders we then proceeded to close the pocket with 0 Prolene with mattress suture. Patient tolerated procedure well there were no complications. There did not appear to be any significant infection of the actual pocket below the fascia affecting the existing pacemaker. There was no fluctuance or induration and the tissues looked healthy and intact. Specimen: Debridement of indurated and infected tissue was disposed of Consults/Reason for consult Problem List/Assessment/Plan ASSESSMENT AND PLAN: ID Problem List: -Recurrent pacemaker pocket infection (current episode; prior pocket infection with Enterobacter) -Cardiac implantable electronic device (CIED) with multiple lead revisions (most recent 04/08/2025) -Status post incision and debridement of infected pacemaker pocket on 06/17/2025 with intraoperative cultures pending (few gram-positive cocci, few gram-positive mallory reported) -Hypertension -Dyslipidemia -Adhesive tape allergy; poor tolerance of midline and PICC lines historically Assessment This is a 49 y.o. female with hypertension and dyslipidemia, s/p original pacemaker placement approximately one year ago with multiple subsequent lead revisions, who presents with a recurrent pacemaker pocket infection. Most recent lead revision occurred 04/08/2025. She underwent surgical incision and debridement of the pacemaker pocket on 06/17/2025 with cultures obtained. Early culture reporting notes few gram-positive cocci and few gram-positive mallory; blood cultures show no growth to date. Prior organism at the same site was Enterobacter, suggesting the current episode is likely a new infection. Given recurrent infection with a retained device, biofilm-associated infection is a concern with attendant risks of bacteremia, endocarditis, and lead involvement. Vitals and initial labs are stable (WBC 8.7; platelets 253; sodium 142; BUN 7; creatinine 0.89). 06/19: coag negative staph on culture Plan: -Antimicrobial therapy: - given picc line and midline access difficulties, in combination with coag negative growth on culture, willing to forego line in exchange for a highly bioavailable oral antibiotic plus rifampin for 6 weeks. - recommend TTE to evaluate for lead infection - switch to linezolid and rifampin. plan for 6 weeks of oral antibiotics once confirmation patient tolerates this regimen without allergy - fu in 4 weeks in ID clinic I\\&D when hardware remains in place. -Consider adjunctive oral rifampin if the organism and medication profile allow (pending susceptibilities and interaction review). -Monitor culture results (operative and blood) and adjust regimen accordingly. -Procedural follow-up: -Monitor wound closely post-I\\&D; at the time of surgery, no fluctuance or induration was noted post-debridement. -Laboratory/monitoring: -Serial clinical assessments for fever, bacteremia, and signs of endocarditis or lead infection. -Follow-up blood cultures as clinically indicated. -Follow-up: -Infectious Diseases follow-up in 4 weeks, with close interval monitoring thereafter given multiple reinfections at the same site. -Activity/work: -Patient is not excluded from returning to work as long as IV antibiotics and access remain functional and she has no procedure- or therapy-related contraindications (per discussion documented). Isolation Precautions: standard Assessment and plan were discussed with the patient as written above. Plan is subject to change pending incorporation of new diagnostics. Updates may be added as an addendum. Thank you for the consult. ID will continue to follow. Please contact Infectious Disease for any questions or concerns. Fareed Cates M.D. [facility] Teams: [email or web address] Operations or Procedures PROCEDURE: TUNNELED CENTRAL VENOUS CATHETER PLACEMENT USING FLUOROSCOPY AND ULTRASOUND HISTORY: PL OF CENTRAL VENOUS CATH DOCUMENTATION: Informed consent was obtained and a procedural time out was performed. SEDATION: Moderate sedation was utilized during the procedure. The patient received benzodiazepines and opioids, the dosing of which was documented in the patient s permanent medical record. Pre-sedation history and evaluation revealed no contraindications to sedation. The patient s level of consciousness and physiologic status was monitored continuously by the physician and nursing staff throughout the procedure. Total intra-service moderate sedation time was 30 minutes. FLUORO: 1 minutes, DAP: 2 mGy TECHNIQUE: The skin over the RIGHT internal jugular vein and chest was sterilely prepped, draped and anesthetized with 1% lidocaine with epinephrine. The vein was accessed with a 21-gauge needle under ultrasound guidance with an image archived in the PACS. A guidewire was then passed into the central veins under fluoroscopy. The subcutaneous tunnel was anesthetized with 1% lidocaine and the catheter was tunneled to the venous entry site, cut to the appropriate length, and inserted through a peel away sheath. A final radiograph was obtained, the catheter was flushed and secured in place, and sterile dressings were applied. Procedural physician complied with all CLIP criteria, including preprocedural hand hygiene and use of maximum sterile barriers including hat, gown, sterile gloves, mask, and head to toe drape. The neck and chest were prepped with chlorhexidine solution and draped in the usual sterile fashion. The prep solution was allowed to dry prior to puncture. FINDINGS: Ultrasound demonstrates a patent RIGHT internal jugular vein. The tip of the catheter was placed near the cavoatrial junction. No complications are identified. IMPRESSION: SUCCESSFUL 7.5 TAJIK DUAL-LUMEN POWER INJECTABLE TUNNELED CENTRAL VENOUS CATHETER PLACEMENT. THE CATHETER IS READY FOR IMMEDIATE USE. : Two-dimensional and M-mode echocardiogram with Doppler and color Doppler. Blood Pressure: 133/97 mmHg INDICATION Evaluate for lead infection R/O endocarditis Surgery/Intervention Pacemaker: Conclusion Off axis views. Normal sinus rhythm. Chamber sizes appear to be within normal limits. Valves appear to be normal. Left ventricular function is preserved at 60% with normal RV function. Pacing lead noted in right atrium and right ventricle. No pericardial effusion masses or vegetations. Normal Doppler. SIGNED BY: CHINO ESPINOZA Sr., MD SIGNED DATE/TIME: 06/23/25 5301 Condition at Discharge: Stable Final Diagnosis/Problems List Successful debridement of pacemaker incision and superficial pocket, status post tunneled right PICC line placement for IV antibiotics Discharge Disposition: Home with Health Services Discharge Instruct/Medications Diet: Regular Activity: No Restrictions, As Tolerated Follow Up/Referral: Dr. Cates infectious disease next week as well as Dr. Espinoza Cardiology next week for further evaluation management Medications: Take oral medication as prescribed and continue IV antibiotics via PICC line as prescribed Scheduled Doxycycline (Monohydrate) (Doxycycline), 100 MG PO BID Multiple Vitamins W/ Minerals (Multiple Vitamin/Minerals), 1 TAB PO DAILY, (Reported) Rifampin (Rifampin), 300 MG PO BID Scheduled PRN Acetaminophen (Tylenol Childrens), 650 MG PO Q6HPRN PRN Hydrocodone-Acetaminophen (Hydrocodone Bitartrate/AC 10-325 mg), 1 TAB PO Q6HPRN PRN Naloxone HCl (Narcan), 4 MG NA Q5MINP PRN Discharge Statement: "Patient was advised to return to the ER or call 911 if any headaches, dizziness, shortness of breath, chest pain, abdominal pain, bleeding, fevers, or worsening of medical condition. Patient was counseled about treatment plan, medications, possible side effects, patientverbalized understanding. All questions were answered to the best of my ability. This discharge took greater then 30 minutes in planning, reviewing documentation, counseling the patient, and discussing with other team members." ASSESSMENT ASSESSMENT Assessment Successful debridement of pacemaker incision and superficial pocket, status post tunneled right PICC line placement for IV antibiotics ZENY CURRY MD Jun 24, 2025 13:57
[2025-06-24 16:49] VITALS: BP 121/86; PULSE 79; RESP 20; TEMP 98.8; O2SAT 97
--- NOTE | 2025-06-24 17:38 | DVHPN2 ---
Consult Progress Note Date Seen: Jun 24, 2025 Subjective Patient reports: Feels better (patient having pain at tunneled catheter site, no swelling) Objective vital signs Vital Sign Date Time Temp Pulse Resp B/P (MAP) Pulse Ox O2 Delivery O2 Flow Rate FiO2 06/24/25 16:49 98.8 79 20 121/86 (98) 97 98.8 06/24/25 08:00 Room Air* 0 21 Total Intake and Output 06/23/25 06/23/25 06/24/25 15:00 23:00 07:00 Intake Total 0 ml 1300 ml Balance 0 ml 1300 ml medications Current Medications Medications Dose Ordered Sig/Leticia Route Start Time Stop Time Status Last Admin Dose Admin Docusate Sodium 100 mg BIDPRN PRN PO 06/16/25 20:15 Acetaminophen 650 mg Q6HP PRN PO 06/16/25 20:15 Acetaminophen/ Hydrocodone Bitart 1 tab Q6HPRN PRN PO 06/16/25 20:15 06/17/25 23:57 1 TAB Ondansetron HCl 4 mg Q4HP PRN IV 06/16/25 20:15 Nitroglycerin 0.4 mg Q5MINP PRN SL 06/16/25 20:15 Morphine Sulfate 2 mg Q30M PRN IV 06/16/25 20:15 Diphenhydramine HCl 25 mg Q8HR PRN IV 06/18/25 09:30 06/24/25 06:44 25 MG Rifampin 300 mg BID PO 06/20/25 11:51 06/24/25 10:00 300 MG Linezolid 300 ml @ 150 mls/hr Q12HR IV 06/21/25 22:00 06/24/25 09:59 150 MLS/HR Sodium Chloride 1,000 ml @ 125 mls/hr Q8H IV 06/23/25 17:45 06/24/25 09:59 125 MLS/HR Hydromorphone HCl 0.8 mg Q2HPRN PRN IV 06/24/25 11:30 laboratory and microbiology Laboratory Tests 06/24/25 05:05 Test 06/24/25 05:05 Range/Units Serum Glucose 97 74-106 mg/dL Problem List/Assessment/Plan Problem List/Assessment/Plan ASSESSMENT AND PLAN: ID Problem List: -Recurrent pacemaker pocket infection (current episode; prior pocket infection with Enterobacter) -Cardiac implantable electronic device (CIED) with multiple lead revisions (most recent 04/08/2025) -Status post incision and debridement of infected pacemaker pocket on 06/17/2025 with intraoperative cultures pending (few gram-positive cocci, few gram-positive mallory reported) -Hypertension -Dyslipidemia -Adhesive tape allergy; poor tolerance of midline and PICC lines historically Assessment This is a 49 y.o. female with hypertension and dyslipidemia, s/p original pacemaker placement approximately one year ago with multiple subsequent lead revisions, who presents with a recurrent pacemaker pocket infection. Most recent lead revision occurred 04/08/2025. She underwent surgical incision and debridement of the pacemaker pocket on 06/17/2025 with cultures obtained. Early culture reporting notes few gram-positive cocci and few gram-positive mallory; blood cultures show no growth to date. Prior organism at the same site was Enterobacter, suggesting the current episode is likely a new infection. Given recurrent infection with a retained device, biofilm-associated infection is a concern with attendant risks of bacteremia, endocarditis, and lead involvement. Vitals and initial labs are stable (WBC 8.7; platelets 253; sodium 142; BUN 7; creatinine 0.89). 06/19: coag negative staph on culture 06/23: no masses or vegetations on leads on TTE 06/24: sp tunneled line placement Plan: -Antimicrobial therapy: - 6 weeks IV linezolid with oral rifampin recommended with picc line for presume prosthesis infection - fu in 4 weeks in ID clinic I\&D when hardware remains in place. -Consider adjunctive oral rifampin if the organism and medication profile allow (pending susceptibilities and interaction review). -Monitor culture results (operative and blood) and adjust regimen accordingly. -Procedural follow-up: -Monitor wound closely post-I\&D; at the time of surgery, no fluctuance or induration was noted post-debridement. -Laboratory/monitoring: -Serial clinical assessments for fever, bacteremia, and signs of endocarditis or lead infection. -Follow-up blood cultures as clinically indicated. -Follow-up: -Infectious Diseases follow-up in 4 weeks, with close interval monitoring thereafter given multiple reinfections at the same site. -Activity/work: -Patient is not excluded from returning to work as long as IV antibiotics and access remain functional and she has no procedure- or therapy-related contraindications (per discussion documented). Isolation Precautions: standard Assessment and plan were discussed with the patient as written above. Plan is subject to change pending incorporation of new diagnostics. Updates may be added as an addendum. Thank you for the consult. ID will continue to follow. Please contact Infectious Disease for any questions or concerns. Anila Cates M.D. [facility] Teams: [email or web address] \ Physical Exam: General: NAD Neck: Supple. No masses. HEENT: PERRL. Normal lids and conjunctiva. Moist mucous membranes. Oropharynx without lesions, exudates or excessive erythema. Normal appearance of the external aspects of the nose and ears. Heart: Regular rhythm, normal rate. No murmur. No lower extremity edema. Lungs: Normal respiratory effort. Clear to auscultation bilaterally. No wheezes. No crackles. Abdomen: Soft. Non-tender. Non-distended. No masses or abdominal hernia. Msk: No digital cyanosis. Normal strength and tone in all 4 limbs Skin: Warm and dry, no rashes. Neuro: Alert. No facial droop or slurred speech. Extra-ocular movements intact. Sensation intact to soft touch in all 4 limbs. Psych: Appropriate mood. Full affect. Oriented to person, place, time, and situation. Plan discussed with: Patient Dietary Evaluation Review Comments: Nutrition Recommendation 1) Haroon 1 pk BID 2) Monitor PO intake, lab values, weight trend, and I/O Expected Outcomes/Goals: Wound to improve FU 5-7 days ANILA CATES MD Jun 24, 2025 17:38
== END 2025-06-24 20:15 | disposition home health service (06) | DRG 264 ==
LOC: OVERFLOW 19:07 → EAST 19:07 → UNDOADMIN 19:07 → EAST 19:57 → TELE-EAST 23:55 → EAST 06-22 15:48
PROVIDERS: ADMIT Internal Medicine; ATTEND Internal Medicine
PROC: 0JB60ZZ Excision of Chest Subcutaneous Tissue and Fascia, Open Approach (ICD-10-PCS; principal; 2025-06-17 07:10)
PROC: 0JH63XZ Insertion of Tunneled Vascular Access Device into Chest Subcutaneous Tissue and Fascia, Percutaneous Approach (ICD-10-PCS; 2025-06-23)
PROC: 02HV33Z Insertion of Infusion Device into Superior Vena Cava, Percutaneous Approach (ICD-10-PCS; 2025-06-23)
PROC: B5181ZA Fluoroscopy of Superior Vena Cava using Low Osmolar Contrast, Guidance (ICD-10-PCS; 2025-06-23)
PROC: B548ZZA Ultrasonography of Superior Vena Cava, Guidance (ICD-10-PCS; 2025-06-23)
DX: T82.7XXA Infection and inflammatory reaction due to other cardiac and vascular devices, implants and grafts, initial encounter (principal); L03.313 Cellulitis of chest wall; I10 Essential (primary) hypertension; E87.6 Hypokalemia; Y83.1 Surgical operation with implant of artificial internal device as the cause of abnormal reaction of the patient, or of later complication, without mention of misadventure at the time of the procedure; E78.5 Hyperlipidemia, unspecified; Z95.0 Presence of cardiac pacemaker; Z88.1 Allergy status to other antibiotic agents; Z91.048 Other nonmedicinal substance allergy status; Z80.0 Family history of malignant neoplasm of digestive organs; Z80.1 Family history of malignant neoplasm of trachea, bronchus and lung; Z80.41 Family history of malignant neoplasm of ovary; Z80.52 Family history of malignant neoplasm of bladder; Z80.8 Family history of malignant neoplasm of other organs or systems; Z82.49 Family history of ischemic heart disease and other diseases of the circulatory system; Z90.710 Acquired absence of both cervix and uterus; Z90.49 Acquired absence of other specified parts of digestive tract; Z80.42 Family history of malignant neoplasm of prostate; Y92.89 Other specified places as the place of occurrence of the external cause
CPT/HCPCS: 36415; 36558; 71045; 71046; 76937; 80048; 80053; 83735; 84702; 85025; 85610; 85730; 86850; 86900; 86901; 87040; 87081; 87205; 93005; 93306; 99152; C1894; G0378; J0690; J1100; J2003; J2250; J2704; J3480; J3490